=== PATIENT | male | born 1975 | race African-American/Black ===

== ENCOUNTER 2022-10-22 11:23 | Emergency (ER) | payer BC, SELFPAY ==
--- NOTE | ~2022-10-22 | CT_ITS ---
EXAMINATION: CT abdomen pelvis w con DATE: 10/22/2022 14:58 INDICATION: R flank pain TECHNIQUE: Computed tomography (CT) of the abdomen and pelvis was performed with 100 mL Omnipaque-350 intravenous contrast. Automated exposure control and iterative reconstruction technique were employe d. The dose-length product was 1625.20 mGy-cm. COMPARISON: None. FINDINGS: Lower thorax: Right basilar scar/atelectasis Liver: Normal. Biliary/Gallbladder: Gallbladder is normal. No bile duct dilation. Pancreas: No mass or duct dilation. Spleen: Normal. Adrenals:No mass. Kidneys: No mass, stone, or hydronephrosis. GI tract: No small or large bowel dilation. Normal appendix. Diverticulosis without diverticulitis. Mesentery/Peritoneum: No ascites, mass, or free air. Retroperitoneum: No mass. Pelvis: Pelvic organs are within normal limits. Soft Tissues: Small uncomplicated fat-containing umbilical hernia Bones: No acute osseous finding. IMPRESSION: No acute process detected in the abdomen or pelvis. Reviewed, dictated and finalized at location K.
[2022-10-22 11:27] VITALS: BP 137/62; PULSE 83; RESP 18; TEMP 36.2; O2SAT 97
--- NOTE | 2022-10-22 13:15 | PC.NURSE ---
No answer for room at this time. Did not notify studio artist was leaving.
--- NOTE | 2022-10-22 13:55 | ED.GENADULT ---
HPI - General Adult General Chief complaint: Back Pain/Injury Stated complaint: RIGHT Back/Flank pain, x 1.5 months Time Seen by Provider: 10/22/22 13:48 Source: RN notes reviewed History of Present Illness HPI narrative: Patient presents emergency room from home for back pain. Patient states symptoms been ongoing for the past 6 weeks. The pain is located in the right flank and does not radiate described as aching in nature. States the pain is worsened with movement and stepping on his right leg. He denies any trauma or injury. States he has been taking naproxen regularly for the pain with some improvement. States he last took naproxen 2 hours ago. He denies any fevers or chills denies any chest pain or shortness of breath denies any abdominal pain nausea vomiting diarrhea denies any bowel or bladder incontinence or any other symptoms. Related Data Home Medications Medication Instructions Recorded Confirmed atorvastatin 40 mg tablet 40 mg PO DAILY 06/03/20 bumetanide 1 mg tablet 1 mg PO DAILY 06/03/20 bupropion HCl 300 mg 24 hr tablet, 300 mg PO QAM 06/03/20 extended release carvedilol 25 mg tablet 25 mg PO Q12H 06/03/20 coenzyme Q10 100 mg capsule (Co 100 mg PO DAILY 06/03/20 Q-10) esomeprazole magnesium 20 mg 20 mg PO DAILY 06/03/20 capsule,delayed release Allergies Allergy/AdvReac Type Severity Reaction Status Date / Time No Known Allergies Allergy Verified 06/03/20 13:59 Review of Systems Review of Systems: Gen.: Denies fevers or chills ENT: Denies congestion Respiratory: Denies shortness of breath or cough CV: Denies chest pain or palpitations GI: Denies abdominal pain nausea, emesis or diarrhea denies burning, urgency, frequency or hematuria Musculoskeletal: See HPI Neuro: Denies numbness, tingling, weakness or focal weakness Skin: Denies rash Except as documented, all other systems reviewed and negative [facility] Past Medical History Medical History CHF (congestive heart failure), NYHA class I Depression Diabetes H/O: HTN (hypertension) Hx of migraines Obesity Surgical History Surgical History (Updated 06/04/20 @ 11:35 by aMrnie Andersen) History of ankle surgery Family History Family History (Updated 06/04/20 @ 11:37 by Marnie Andersen) Other Alcoholism Cerebrovascular accident Depression Diabetes mellitus Heart attack Hypertension Social History Social History Smoking status: Unknown if ever smoked Alcohol intake: current Exam Narrative: APPEARANCE: No acute distress, nontoxic, resting in bed EYES: EOMI HEENT: Normocephalic, atraumatic, OMM RESPIRATORY: No respiratory distress Clear to auscultation bilaterally with no rhonchi wheezing or rales. CARDIOVASCULAR: Regular rate and rhythm without murmurs rubs or gallops. ABDOMINAL: Soft, nontender, nondistended, no rebound or guarding MUSCULOSKELETAl: Moves all extremities. No clubbing, cyanosis or edema. Back: No midline thoracic lumbar tenderness palpation tender palpation over right paravertebral muscles L4 1 through 4 and right flank pain increased with rotation to the right with no pain with rotation to the left NEURO: Awake and alert. Following commands, speech normal, no focal deficits muscle strength 5 out of 5 bilateral upper and lower extremities SKIN:: Warm, dry. No rashes lesions or abrasions PSYCHIATRIC: Normal affect/mood, Course Course Emergency Course: Discussed with patient results of workup and diagnosis. Discussed need for follow-up with primary care, proper use of medication, and reasons to return to the emergency department. Patient understands and agrees to current treatment plan discussed with patient his blood sugar did eat earlier has been taking his medication and will take Vital Signs Vital signs: Vital Signs Temperature 97.2 F L 10/22/22 11:27 Pulse Rate 83
[2022-10-22] MEDS: HYDROcodone/acetaminophen (*CRX) 5-325 MG TABLET 1 TAB PO (13:59)
[2022-10-22 14:11] LABS: Basophils Percent Auto 0.3 % (0.2-1.2); Eosinophils Absolute Auto 0.1 K/mm3 (0-0.3); Eosinophils Percent Auto 1.5 % (0-4.4); Hematocrit 45.3 % (42.0-52.0); Hemoglobin 14.6 g/dL (14.0-18.0); Immature Granulocyte Absolute 0.06 K/mm3 (0.00-0.031); Immature Granulocyte Percent A 0.7 % (0-0.5); Lymphocytes Absolute Auto 2.11 K/mm3 (0.9-3.2); Lymphocytes Percent Auto 24.1 % (18.3-44.2); Mean Corpuscular HGB Conc 32.2 g/dl (32-36); Mean Corpuscular Hemoglobin 25.5 pg (26-34); Mean Corpuscular Volume 79.2 fl (80-100); Mean Platelet Volume 10.9 fl (7.4-10.4); Monocytes Absolute Auto 0.9 K/mm3 (0.1-0.6); Monocytes Percent Auto 10.5 % (2.6-8.5); Neutrophils Absolute Auto 5.5 K/mm3 (1.3-6.7); Neutrophils Percent Auto 62.9 % (45.5-73.1); Platelet Count Result 232 k/mm3 (150-375); Red Blood Count 5.72 M/mm3 (4.6-6.20); Red Cell Distribution Width 14.5 % (11.5-14.5); White Blood Count 8.8 K/mm3 (4.5-10.0)
[2022-10-22 14:21] LABS: Alanine Aminotransferase 39 U/L (6-50); Albumin Level 4.5 g/dL (3.5-5.1); Alkaline Phosphatase 110 U/L (38-126); Anion Gap 9 mmol/L (8-16); Aspartate Amino Transferase 31 U/L (17-59); Bilirubin,Total 0.9 mg/dL (0.2-1.3); Blood Urea Nitrogen 19 mg/dL (9-20); Calcium 9.5 mg/dL (8.4-10.2); Carbon Dioxide 28 mmol/L (22-30); Chloride 98 mmol/L (98-107); Estimated CRCL calculation 128 ml/min; Estimated Glomerular Filt Rate > 60; Glucose 330 mg/dL (65-110); Lipase 50 U/L (23-300); Potassium 4.1 mmol/L (3.4-5.0); Sodium 135 mmol/L (137-145)
[2022-10-22 15:24] LABS: Appearance Urine Clear (Clear); Bilirubin Urine Negative (Negative); Blood Urine Negative (Negative); Color Urine Yellow (Yellow); Glucose Urine UA 3+ mg/dL (Negative); Ketones Urine Negative (Negative); Leukocyte Esterase Ur Negative LEU/UL (Negative); Nitrate Urine Negative (Negative); Protein Urine Negative (Negative); Specific Grav Ur 1.018 (1.001-1.035); Urobilinogen Urine 0.2 mg/dL (<2.0); pH Urine 5.5 (5.0-9.0)
[2022-10-22 15:31] LABS: Add Urine Microscopic? NO
[2022-10-22 15:35] VITALS: BP 142/86; PULSE 88; RESP 16; O2SAT 98
== END 2022-10-22 15:40 | disposition home or self-care (01) ==
PROVIDERS: Emergency Provider Emergency Medicine; PCP Internal Medicine
DX: M54.50 Low back pain, unspecified (principal); I11.0 Hypertensive heart disease with heart failure; I50.9 Heart failure, unspecified; E11.9 Type 2 diabetes mellitus without complications; F32.A Depression, unspecified
CPT/HCPCS: 36415; 74177; 80053; 81003; 83690; 85025; 99284; A9270; Q9967

== ENCOUNTER 2024-08-03 21:11 | Emergency (ER) | payer BC, SELFPAY ==
--- NOTE | ~2024-08-03 | CT_ITS ---
History: Trauma PROCEDURE: CT cervical spine without intravenous contrast. COMPARISON: None TECHNIQUE: Multiple contiguous axial images of the cervical spine were performed without the administration of i ntravenous contrast. DLP: 387 mGy-cm FINDINGS: Straightening and slight reversal of the normal curvature of the cervical spine is identified, likely muscular in origin. No acute fractures are present. The bilateral lung apices are without included Scattered cervical lymphadenopathy. Remaining soft tissues are unremarkable. The airway is patent. Impression: Straightening and slight reversal of the normal curvature of the cervical spine, likely muscular in o rigin. No acute fracture. Scattered cervical lymphadenopathy. Reviewed, dictated and finalized at location A. ENGINEERING MANAGER Impression: Straightening and slight reversal of the normal curvature of the cervical spine , likely muscular in origin. No acute fracture. Scattered cervical lymphadenopathy.
--- NOTE | ~2024-08-03 | CT_ITS ---
History: Trauma PROCEDURE: CT head without contrast. COMPARISON: None TECHNIQUE: Axial imaging of the head performed from the skull base to the vertex without IV contrast. Sagittal a nd coronal reformations obtained. DLP: 681 mGy-cm FINDINGS: The ventricles are normal in size, shape and position. There is no mass, mass effect or midline shift. There is no abnormal extra-axial fluid collection or intracranial hemorrhage. Mucoperiosteal thickening within the bilateral ethmoid sinuses. Air-fluid level within the common sphenoid sinus. Remaining paranasal sinuses are unremarkable. The mastoid air cells are well aerated. No acute displaced fractures within the overlying cranium. Impression: No acute intracranial hemorrhage or suspicious mass effect. Inflammatory sinus disease. Reviewed, dictated and finalized at location A. NAGE DESIGN COORDINATOR Impression: No acute intracranial hemorrhage or suspicious mass effect. Inflammatory sinus disease.
[2024-08-03 21:13] VITALS: BP 137/86; PULSE 102; RESP 14; TEMP 36.6; O2SAT 98
--- NOTE | 2024-08-03 22:10 | ED_ITS ---
HPI - General Adult General Chief complaint: Head Injury Stated complaint: head injury Time Seen by Provider: 08/03/24 21:31 History of Present Illness HPI narrative: Patient is a 48-year-old male who presents emergency department this evening complaining of left-sided headaches and neck pain for the past few days. Patient states that he accidentally slipped out of bed on July 29 and hit the left side of his head on the ground. Patient states that initially he was mildly sore to the left side of his head but as the days progressed he started to develop some headaches, left-sided neck pain and nausea. Patient did not see a physician at the time of the fall and did not think much of it but since his symptoms persisted he decided to come to the emergency department today for further evaluation. Denies any vomiting episodes. Denies any blood thinner use other than a baby aspirin daily. Currently denying any vision changes, focal weakness, numbness and/or tingling. Admits that the headache is mild and denies any sudden onset worse headache of his life sensation. No additional symptoms or concerns at this time. Related Data Home Medications ?Medication ?Instructions ?Recorded ?Confirmed ?Last Taken ?Type atorvastatin 40 mg tablet 40 mg PO DAILY 06/03/20 Unknown History bumetanide 1 mg tablet 1 mg PO DAILY 06/03/20 Unknown History bupropion HCl 300 mg 24 hr tablet, 300 mg PO QAM 06/03/20 Unknown History extended release carvedilol 25 mg tablet 25 mg PO Q12H 06/03/20 Unknown History coenzyme Q10 100 mg capsule (Co 100 mg PO DAILY 06/03/20 Unknown History Q-10) esomeprazole magnesium 20 mg 20 mg PO DAILY 06/03/20 Unknown History capsule,delayed release Allergies Allergy/AdvReac Type Severity Reaction Status Date / Time No Known Allergies Allergy Verified 08/03/24 21:11 Review of Systems Review of Systems: All systems are reviewed and are negative unless stated otherwise in the HPI. [facility]LY [facility] Past Medical History Medical History CHF (congestive heart failure), NYHA class I Obesity Hx of migraines H/O: HTN (hypertension) Diabetes Depression Surgical History Surgical History History of ankle surgery Family History Family History Other Alcoholism Cerebrovascular accident Depression Diabetes mellitus Heart attack Hypertension Social History Social History Smoking status: Unknown if ever smoked Alcohol intake: current Exam Narrative: General: Alert, awake, afebrile, in no acute distress. HEENT: PERRL, no rhinorrhea, no post nasal drip, oropharynx clear. Neck: Trachea midline, no JVD, no lymphadenopathy, tenderness palpation over the left paraspinal cervical region, no midline tenderness to palpation over the cervical spine, no step-offs or deformities. Cardiovascular: Regular rate and rhythm, no murmurs, rubs or gallops, no pe ripheral edema. Respiratory: Clear to auscultation bilaterally, no tachypnea, no wheezing, no rhonchi, no rubs, no respiratory distress. Abdomen: Soft, nontender, nondistended, no rebound, no guarding, no peritoneal signs. Musculoskeletal: No joint swelling or deformity, normal muscle tone. Skin: No rashes or petechia, no signs of infection. Psychiatric: Alert and oriented, normal behavior and judgment for situation. Neurological: Alert and oriented to person, place, and time. Follows all commands. No focal deficits, speech is clear and fluent. Course Vital Signs Vital signs: Vital Signs Temperature 97.9 F 08/03/24 21:13 Pulse Rate 102 H 08/03/24 21:13 Respiratory Rate 14 08/03/24 21:13 Blood Pressure 137/86 08/03/24 21:13 Pulse Oximetry 98 08/03/24 21:13 Oxygen Delivery Room Air 08/03/24 21:13 Temperature 97.9 F 08/03/24 21:13 Pulse Rate 102 H 08/03/24 21:13 Respiratory Rate 14 08/03/24 21:13 Blood Pressure 137/86 08/03/24 21:13 Pulse Oximetry 98 08/03/24 21:13 Oxygen Delivery Room Air 08/03/24 21:13 Medical Decision Making MDM Narrative Medical decision making narrative: The patient was evaluated by myself in the emergency department. History is obtained from patient who is an independent historian and physical exam was performed. External medical records were reviewed at this time. Patient was administered 4 mg of ODT Zofran at this time for nausea. Imaging studies obtained included CT brain and cervical spine without IV contrast which was independently interpreted by me revealing no acute process, which is pending final radiology interpretation. Differential diagnosis considerations include intracranial hemorrhage, fractures, dislocations, musculoskeletal strain. Comorbidities impacting this visit include none. I have evaluated and discussed social determinants of health with the patient that could potentially impact subsequent diagnosis and treatment plans. On repeat assessment of the patient, reevaluation revealed that the patient is doing well and is in no acute distress. Patient symptoms have remained stable since he arrived to our emergency department. Repeat vital signs were all reviewed and noted to be stable. Differential diagnosis and treatment plan were discussed with the patient at bedside. Patient agrees with discussion and after shared medical decision making agrees with discharge. All questions were answered to the patient's satisfaction. Patient will follow up with PCP in 3-5 days. Scripts for Robaxin and Zofran were sent to patient's pharmacy to use as needed for nausea/muscle pain. Patient was provided with strict return precautions and instructed to return to the emergency department if any new or worsening symptoms develop. The patient was discharged in stable condition. Vital Signs Vital Signs: Vital Signs Temperature 97.9 F 08/03/24 21:13 Pulse Rate 102 H 08/03/24 21:13 Respiratory Rate 14 08/03/24 21:13 Blood Pressure 137/86 08/03/24 21:13 Pulse Oximetry 98 08/03/24 21:13 Oxygen Delivery Room Air 08/03/24 21:13 Temperature 97.9 F 08/03/24 21:13 Pulse Rate 102 H 08/03/24 21:13 Respiratory Rate 14 08/03/24 21:13 Blood Pressure 137/86 08/03/24 21:13 Pulse Oximetry 98 08/03/24 21:13 Oxygen Delivery Room Air 08/03/24 21:13 Discharge Plan Discharge Clinical Impression: Closed head injury, Cervical strain Patient Disposition: Home, Self-Care Condition: Improved Instructions: Antibiotic Form, Cervical Strain (DC), Head Injury (ED) Additional Instructions: Please take the prescribed a muscle relaxer/Zofran as needed for your symptoms. Follow-up with your family doctor within the next 3-5 days. Return to the emergency department if any new or worsening symptoms develop. Patient Language: Gibraltarian Prescriptions: New methocarbamol 750 mg tablet 750 mg PO HS PRN (Reason: muscle pain) Qty: 10 0RF ondansetron 4 mg tablet,disintegrating 4 mg PO Q8H PRN (Reason: nausea and vomiting) Qty: 10 0RF No Action atorvastatin 40 mg tablet 40 mg PO DAILY bumetanide 1 mg tablet 1 mg PO DAILY bupropion HCl 300 mg tablet extended release 24 hr 300 mg PO QAM carvedilol 25 mg tablet 25 mg PO Q12H Rx Instructions: must administer with a meal/food coenzyme Q10 [Co Q-10] 100 mg capsule 100 mg PO DAILY esomeprazole magnesium 20 mg capsule,delayed release(DR/EC) 20 mg PO DAILY cyclobenzaprine 10 mg tablet 10 mg PO TID PRN (Reason: muscle spasm) Qty: 8 0RF ibuprofen 600 mg tablet 600 mg PO TID PRN (Reason: pain) Qty: 10 0RF Follow-up/Referrals: Sony Sherman MD [Physician] - 3 Days UNKNOWN,DOCTOR [Primary Care Provider] - Time of Disposition: 22:09
[2024-08-03] MEDS: ONDANSETRON HCL ODT 4 MG TABLET PO (22:14)
== END 2024-08-03 22:14 | disposition home or self-care (01) ==
PROVIDERS: Emergency Provider Emergency Medicine
DX: S09.90XA Unspecified injury of head, initial encounter (principal); S16.1XXA Strain of muscle, fascia and tendon at neck level, initial encounter; I50.9 Heart failure, unspecified; I11.0 Hypertensive heart disease with heart failure; E11.9 Type 2 diabetes mellitus without complications; E66.9 Obesity, unspecified; Z68.39 Body mass index [BMI] 39.0-39.9, adult; F32.A Depression, unspecified; Z79.899 Other long term (current) drug therapy; W06.XXXA Fall from bed, initial encounter
CPT/HCPCS: 70450; 72125; 99284; A9270

== ENCOUNTER 2025-02-19 12:48 | Emergency (ER) | payer BC, SELFPAY ==
--- NOTE | ~2025-02-19 | XR_ITS ---
EXAMINATION: XR knee LT 3V DATE: 02/19/2025 16:45 INDICATION: Left knee pain TECHNIQUE: Anteroposterior, oblique and crosstable lateral views of the left knee were obtained COMPARISON: None. FINDINGS: Alignment is normal. No fracture. Joint spaces appear normal on nonweightbearing imaging. Tiny amaya nal osteophytes along the lateral tibial plateau consistent with at least mild osteoarthritis. No silvio nt effusion/layering lipohemarthrosis. Soft tissues are unremarkable. IMPRESSION: 1. At least mild osteoarthritis lateral compartment of the left knee. No joint effusion or acute osse ous abnormality. Reviewed, dictated and finalized at location A. IMPRESSION: 1. At least mild osteoarthritis lateral compartment of the left knee. No joint effusion or acute osseous abnormality.
--- NOTE | ~2025-02-19 | XR_ITS ---
EXAMINATION: XR chest 1V portable 02/19/2025 14:56 INDICATION: Fever. CHF. PROCEDURE: AP portable chest COMPARISON: 08/12/2017 FINDINGS: The lungs are clear. The cardiomediastinal silhouette is within normal limits. There are no pleural effusions. There is no pneumothorax suspected. IMPRESSION: 1: NO ACUTE CARDIOPULMONARY DISEASE. Reviewed, dictated and finalized at location B.
[2025-02-19 12:48] VITALS: BP 114/60; PULSE 90; RESP 16; TEMP 37.7; O2SAT 98
--- OUTSIDE RECORDS SUMMARY | 2025-02-19 12:50 | XMS_ITS | Encounter Summary ---
Author Organization [facility] Address [address] [place] [address] Phone Care Team Providers Care Manager Insurance Name Role Phone Chelsie Monsivais MD Primary Care Provider Ralf Eduardo MD Primary Care Provider Tomas Reddy APRN, RESIDENTIAL SERVICE TECHNICIAN Unavailable Regi Alcantar APRN, RESIDENTIAL SERVICE TECHNICIAN Primary Care Provid er Reason for Visit * Reason Comments Medication Refill Encounter Details Date Type Department Care Team (Late st Contact Info) Description 02/17/2021 Refill [facility] [address] [place] [address] Danelle Bishop MD [address] [facility] [address] [place] [address] Medication Refill Social History Tobacco Use Types Packs/Day Years Used Date Smoking Tobacco: Former Smokeless Tobacco: Never Alcohol Use Standard Drinks/Week Comments Not Currently 0 (1 standard drink = 0.6 oz pur e alcohol) Sexually Active Control Partners Comments Yes Female Sex and Gender Information Value Date Recorded Sex Assigned at Not on file Legal Sex Male 2:10 PM CDT Gender Identity Not on file Sexual Orientation Not on file documented as of this encounter Plan of Treatment Upcoming Encounters Date Type Department Care Team (Late st Contact Info) Description 04/21/2025 10:15 AM CDT Office Visit [facility] [address] [place] [address] Tomas Reddy APRN, RESIDENTIAL SERVICE TECHNICIAN [address] [place] [address] documented as of this encounter Visit Diagnoses Diagnosis Hypogonadism in male documented in this encounter Care Teams Manager Insurance Relationship Specialty Start Date End Date Adolfog Chelsie Marie MD [address] [address] PCP - General Family Medicine 01/13/20 08/08/21 Ralf Eduardo MD [address] [place] [address] PCP - General Adult Medicine 08/09/21 03/18/24 Regi Alcantar APRN, RESIDENTIAL SERVICE TECHNICIAN [address] [place] [address] PCP - General Advanced Practice Nurse 03/19/24 Tomas Reddy APRN, RESIDENTIAL SERVICE TECHNICIAN [address] [place] [address] Nurse Practitioner Advanced Practice Nurse 08/08/22 documented as of this encounter
--- OUTSIDE RECORDS SUMMARY | 2025-02-19 12:50 | XMS_ITS | Encounter Summary ---
Author Organization [facility] Address [facility] [place] [address] Care Team Providers Care Ship Liner Name Role Phone Regi Alcantar EXECUTIVE LEGAL SECRETARY Primary Care Provider [phone] Encounter Details Date Type Department Care Team (Latest Contact Info) Description 02/19/2025 Travel Social History Tobacco Use Types Packs/Day Years Used Date Smoking Tobacco: Former Cigarettes 1 3 Cigars Passive Smoke Exposure: Past Smokeless Tobacco: Never Alcohol Use Standard Drinks/Week Comments Yes 2 (1 standard drink = 0.6 oz pur e alcohol) socially PHQ-2 Answer Date Recorded Patient Health Questionnaire-2 Score 2 10/16/2024 Sex and Gender Information Value Date Recorded Sex Assigned at Male 10/16/2024 7:59 AM CDT Legal Sex Male 6:09 PM CDT Gender Identity Male 10/16/2024 7:59 AM CDT Sexual Orientation Straight 10/16/2024 7: 59 AM CDT Travel History Travel Start Travel End [place] 02/12/2025 02/13/2025 [place] 02/10/2025 02/10/2025 [place] 02/09/2025 025 documented as of this encounter Plan of Treatment Upcoming Encounters Date Type Department Care Team (Late st Contact Info) Description 05/27/2025 8:00 AM CORE DIPPER Office Visit [facility] - [place] [address] [place] [address] Regi Alcantar, EXECUTIVE LEGAL SECRETARY [address] [place] [address] documented as of this encounter Visit Diagnoses Not on filedocumented in this encounter Additional Health Concerns Assessment Noted Time PHQ-9 Depression Total Score: 9 10/17/19 25 9:36 AM CDT documented as of this encounter Care Teams Ship Liner Relationship Specialty Start Date End Date Regi Alcantar, EXECUTIVE LEGAL SECRETARY [address] [place] [address] PCP - General NURSE PRACTITIONER 02/08/24 documented as of this encounter
--- OUTSIDE RECORDS SUMMARY | 2025-02-19 12:50 | XMS_ITS | Encounter Summary ---
Author Organization [facility] Address [address] [place] [address] Phone Care Team Providers Care Business Services Coordinator Name Role Phone Chelsie Monsivais MD Primary Care Provider Ralf Eduardo MD Primary Care Provider [phone] Tomas Reddy APRN, LONG TERM CARE PHLEBOTOMIST Unavailable [phone] Regi Alcantar APRN, LONG TERM CARE PHLEBOTOMIST Primary Care Provid er Reason for Visit * Reason Comments Medication Refill Encounter Details Date Type Department Care Team (Late st Contact Info) Description 06/16/2021 Refill [facility] [address] [place] [address] Chema Carmona MD [address] [place] [id number] Medication Refill Social History Tobacco Use Types [...] Description 04/21/2025 10:15 AM CDT Office Visit [facility] [address] [place] [address] Tomas Reddy APRN, LONG TERM CARE PHLEBOTOMIST [address] [place] [address] documented as of this encounter Visit Diagnoses Diagnosis Hypogonadism in male documented in this encounter Care Teams Business Services Coordinator Relationship Specialty Start Date End Date Adolfog Chelsie Marie MD [address] [facility] [place] [address] PCP - General Family Medicine 01/13/20 08/08/21 Ralf Eduardo MD [address] [place] [address] PCP - General Adult Medicine 08/09/21 03/18/24 Regi Alcantar APRN, LONG TERM CARE PHLEBOTOMIST [address] [place] [address] PCP - General Advanced Practice Nurse 03/19/24 Tomas Reddy APRN, LONG TERM CARE PHLEBOTOMIST [address] [place] [address] Nurse Practitioner Advanced Practice Nurse 08/08/22 documented as of this encounter
--- OUTSIDE RECORDS SUMMARY | 2025-02-19 12:50 | XMS_ITS | Encounter Summary ---
Author Organization [facility] Address [facility] [place] [address] Care Team Providers Care Black Ash Worker Name Role Phone Regi Alcantar NP Primary Care Provider [phone] Encounter Details Date Type Department Care Team (Latest Contact Info) Description 02/19/2025 MyChart Message Enc [facility] - [place] [address] [place] [address] Regi Alcantar, FIFI [address] [place], [place] [id number] Severe headache and joint stiffness Social History Tobacco Use Types Packs/Day Years [...] CDT Travel History Travel Start Travel End [facility] 02/12/2025 02/13/2025 [place] 02/10/2025 02/10/2025 [place] 02/09/2025 025 documented as of this encounter Plan of Treatment Upcoming Encounters Date Type Department Care Team (Late st Contact Info) Description 05/27/2025 8:00 AM FLOOR WINDER Office Visit [facility] - [place] [address] [place] [address] Regi Alcantar NP [address] [place] [address] documented as of this encounter Visit Diagnoses Not on filedocumented in this encounter Additional Health Concerns Assessment Noted Time PHQ-9 Depression Total Score: 9 10/17/19 25 9:36 AM CDT documented as of this encounter Care Teams Black Ash Worker Relationship Specialty Start Date End Date Regi Alcantar NP [address] [place] [address] PCP - General NURSE PRACTITIONER 02/08/24 documented as of this encounter
--- OUTSIDE RECORDS SUMMARY | 2025-02-19 12:50 | XMS_ITS | Encounter Summary ---
Author Organization [facility] Address [facility] [place] [address] Care Team Providers Care Senior Game Developer Name Role Phone Regi Alcantar NP Primary Care Provider [phone] Encounter Details Date Type Department Care Team (Latest Contact Info) Description 01/22/2025 Results Follow-Up [facility] - [place] [address] [place] [address] Regi Alcantar NP [address] [place], [place] [id number] A1C (BACK OFFICE), COMPREHENSIVE METABOLIC PANEL, LIPID PANEL Social History Tobacco Use Types Packs/Day Years [...] CDT Travel History Travel Start Travel End [facility] 02/12/2025 02/13/2025 [place] 02/10/2025 02/10/2025 [place] 02/09/2025 025 documented as of this encounter Plan of Treatment Upcoming Encounters Date Type Department Care Team (Late st Contact Info) Description 05/27/2025 8:00 AM WEBFED OFFSET PRESS OPERATOR Office Visit [facility] - [place] [address] [place] [address] Regi Alcantar, SANITATION SUPERINTENDENT [address] [place] [address] documented as of this encounter Visit Diagnoses Not on filedocumented in this encounter Additional Health Concerns Assessment Noted Time PHQ-9 Depression Total Score: 9 10/17/19 25 9:36 AM CDT documented as of this encounter Care Teams Senior Game Developer Relationship Specialty Start Date End Date Regi Alcantar SANITATION SUPERINTENDENT [address] [place] [address] PCP - General NURSE PRACTITIONER 02/08/24 documented as of this encounter
--- OUTSIDE RECORDS SUMMARY | 2025-02-19 12:50 | XMS_ITS | Clinical Summary ---
Author Organization [facility] Address [address] [place] [address] Care Team Providers Care Suction Dredge Dumping Supervisor Name Role Phone Regi Alcantar NP Primary Care Provider [phone] Allergies No known active allergies Medications testosterone cypionate (DEPO TESTOSTERONE) 200 MG/ML injection INJECT 0.75ML INTRAMUSCULARLY EVERY 7 DAYS 024 Active B-D 3CC LUER-SARAN SYR 79HS2-6/2 21G X 1-2 3 ML Misc USE 1 EACH EVERY 14 DAYS. 024 Active furosemide (LASIX) 40 MG tablet Take 1 tablet (40 mg total) by mouth daily. Active aspirin EC (ECOTRIN) 81 MG tablet Take 1 tablet (81 mg total) by mouth daily. Active Continuous Glucose Sensor (FREESTYLE KEHINDE 3 SENSOR) MiscIndications:D M (diabetes mellitus), type 2, uncontrolled, with hyperosmolarity (CMS/HCC HHS/HCC),Cardiomy opathy, unspecified type ([facility] HHS/HCC),Chronic congestive heart failure, unspecified heart failure type ([facility] HHS/HCC) 1 Device by Does not apply route every 14 (fourteen) days. 2 each 5 024 Active zolpidem (AMBIEN) 5 MG tabletIndications :Primary insomnia Take 1 tablet (5 mg total) by mouth nightly as needed for Sleep. 30 tablet 1 024 Active lisinopril (PRINIVIL) 20 MG tabletIndications :Cardiomyopathy, unspecified type (CMS/HCC HHS/HCC),Chronic congestive heart failure, unspecified heart failure type (CMS/HCC HHS/HCC) Take 1 tablet (20 mg total) by mouth daily. 90 tablet 3 024 Active carvedilol (COREG) 25 MG tablet Take 1 tablet (25 mg total) by mouth 2 (two) times daily. 180 tablet 3 024 Active empagliflozin (JARDIANCE) 25 MG tabletIndications :DM (diabetes mellitus), type 2, uncontrolled, with hyperosmolarity (CMS/HCC HHS/HCC),Chronic congestive heart failure, unspecified heart failure type (CMS/HCC HHS/HCC) Take 1 tablet (25 mg total) by mouth daily. 90 tablet 1 025 Active metFORMIN ER, MOD, (GLUMETZA) 1000 MG 24 hr tabletIndications :DM (diabetes mellitus), type 2, uncontrolled, with hyperosmolarity (CMS/HCC HHS/HCC) Take 1 tablet (1,000 mg total) by mouth 2 (two) times daily. 180 tablet 1 025 Active semaglutide (OZEMPIC) 2 mg/dose injection (PEN)Indications: Diabetes Mellitus Inject 2 mg into the skin once a week. Indications: Diabetes 6 mL 1 025 Active triamcinolone (KENALOG) 0.1 % creamIndications: Tinea corporis Apply topically 2 (two) times daily. 45 g 025 Active Additional Information Patient not taking.Reported on 02/19/2025 clotrimazole (LOTRIMIN) 1 % creamIndications: Tinea corporis Apply topically 2 (two) times daily. 28 g 025 Active Additional Information Patient not taking.Reported on 02/19/2025 spironolactone (ALDACTONE) 50 MG tabletIndications :Chronic congestive heart failure, unspecified heart failure type (CMS/HCC HHS/HCC),Non-isch emic cardiomyopathy (CMS/HCC HHS/HCC) Take 1 tablet (50 mg total) by mouth daily. 90 tablet 1 025 Active FLUoxetine HCl 60 MG TabIndications:Ma alek depressive disorder, recurrent episode, moderate (CMS/HCC) Take 60 mg by mouth daily. 30 tablet 2 025 Active atorvastatin (LIPITOR) 80 MG tabletIndications :Mixed hyperlipidemia Take 1 tablet (80 mg total) by mouth nightly at bedtime. 90 tablet 1 025 Active digoxin (LANOXIN) 0.25 MG tabletIndications :History of atrial fibrillation Take 1 tablet (0.25 mg total) by mouth daily. 90 tablet 1 025 Active brexpiprazole (REXULTI) 1 MG tabletIndications :Major depressive disorder, recurrent episode, moderate (CMS/HCC),DEMETRICE (generalized anxiety disorder) Take 1 tablet (1 mg total) by mouth daily. 30 tablet 2 025 Active brexpiprazole (REXULTI) 0.5 MG tabletIndications :Major depressive disorder, recurrent episode, moderate (CMS/HCC) Take 1 tablet (0.5 mg total) by mouth daily. 30 tablet 2 025 01/22 Discontinued atorvastatin (LIPITOR) 80 MG tabletIndications :Mixed hyperlipidemia Take 1 tablet (80 mg total) by mouth nightly at bedtime. 90 tablet 025 01/22 Discontinued( Reorder) digoxin (LANOXIN) 0.25 MG tabletIndications :History of atrial fibrillation Take 1 tablet (0.25 mg total) by mouth daily. 30 tablet 025 01/22 Discontinued( Reorder) brexpiprazole (REXULTI) 1 MG tabletIndications :Major depressive disorder, recurrent episode, moderate (CMS/HCC),DEMETRICE (generalized anxiety disorder) Take 1 tablet (1 mg total) by mouth daily. 30 tablet 2 025 01/22 Discontinued Active Problems Problem Noted Date Diagnosed Date Iron deficiency 10/16/2024 History of DVT (deep vein thrombosis) 02/21/2024 History of atrial fibrillation 02/21/2024 Coronary artery disease due to lipid rich plaque 02/21/2024 DM (diabetes mellitus), type 2, uncontrolled, with hyperosmolarity ([facility]) 02/20/2024 Chronic congestive heart kaylen lure, unspecified heart failure type ([facility]) 02/20/2024 Non-ischemic cardiomyopathy ([facility]) Major depressive disorder, recurrent episode, mo derate 02/20/2024 Mixed hyperlipidemia 02/20/2024 Insomnia, unspecified type 02/20/2024 Encounters Date Type Department Care Team Description 02/19/2025 11:40 AM CDT Office Visit [place] [address] [facility] [address] [place] [address] Regi Alcantar, FIFI Pain (Patient presents today with back and neck pain that is going down both arms and legs. Started x2 days ago. ) 02/19/2025 Travel 02/19/2025 365 [employer] [facility] [address] [place] [address] Regi Alcantar, FIFI Severe headache and joint stiffness 01/22/2025 8:00 AM CDT Office Visit [place] [address] [place] [address] Regi Alcantar, CATALYTIC CASE OPERATOR Diabetes 01/22/2025 Results Follow-Up [place] [address] [place] [address] Regi Alcantar, FIFI A1C (BACK OFFICE), COMPREHENSIVE METABOLIC PANEL, LIPID PANEL 01/22/2025 365 [employer] [facility] [place] [address] [place] [address] [place] [address] Regi Alcantar, FIFI cardiology 01/22/2025 Telephone [place] [address] [place] [address] Regi Alcantar, CATALYTIC CASE OPERATOR Record Request 01/22/2025 Travel 11/19/2024 Results Follow-Up [place] [address] [place] [address] [place] [address] Regi Alcantar, FIFI A1C (BACK OFFICE), TSH W/REFLEX, CBC W/DIFF AUTOMATED, Additional followed-up results: 5 from Last 3 Months Immunizations Immunization Administration Dates Next Due Pneumococcal (Pneumovax 23) 07/23/2016 Pneumococcal (Prevnar 20) 10/16/2024 Tdap (Generic) 08/27/2017 Social History Tobacco Use Types Packs/Day Years Used Date Smoking Tobacco: Former Cigarettes 1 3 Cigars Passive Smoke Exposure: Past Smokeless Tobacco: Never Tobacco Cessation:Counseling Given: No Alcohol Use Standard Drinks/Week Comments Yes 2 [...] 02/10/2025 [place] 02/09/2025 025 Last Filed Vital Signs Vital Sign Reading Time Taken Comments Blood Pressure 98/62 02/19/2025 11:38 AM CDT Pulse 102 02/19/2025 11:38 AM CDT Temperature 37.1 C (98.8 F) 02/19/2025 11:38 AM CDT Respiratory Rate 16 02/19/2025 11:3 8 AM CDT Oxygen Saturation 97% 02/19/2025 11: 38 AM CDT Inhaled Oxygen Concentration - - Weight 115.6 kg (254 lb 12.8 oz) 2024 11:38 AM CDT Height 182.9 cm (6') 02/19/2025 11:38 AM CDT Body Mass Index 34.56 02/19/2025 11:38 AM CDT Plan of Treatment Upcoming Encounters Date Type Department Care Team (Late st Contact Info) Description 05/27/2025 8:00 AM PRINCIPAL EXAMINER Office Visit [facility] [place] [address] [place] [address] Regi Alcanatr, FIFI [address] [place] [address] Health Maintenance Due Date Last Done Comments Diabetes: Retinopathy Eye Exam 11/23/1993 Hepatitis B Vaccines (1 of 3 - 19+ 3-dose series) 11/23/1994 COVID-19 Vaccine (2 - season) 2024 12/23/2020 Hemoglobin A1C 07/25/2025 01/22/2025, 09/21, 06/18/2024, Additional history exists Annual Physical 10/16/2025 10/16/2024 Kidney Health Evaluation 10/16/2025 10/16/2024 Lipid Panel 01/22/2026 01/22/2025, 09/21, 06/18/2024, Additional history exists DTaP, Tdap and Td Vaccines (2 - Td or Tdap) 08/27/2027 08/27/2017 Colorectal Cancer Screening FIT-DNA (3 Years) 11/15/2027 11/14/2024, 11/14/2024 Hepatitis C Completed 02/20/2024 PHQ-2 (Physician [place]) Completed 10/16/2024 Pneumococcal Vaccine: Pediatrics (0 to 5 Years) and At-Risk Patients (6 to 49 Years) Completed 10/16/2024, 07/23/2016 Meningococcal B Vaccine Aged Out No l onger eligible based on patient's age to complete this topic Meningococcal Vaccine Aged Out No lucie claritza eligible based on patient's age to complete this topic RSV Immunizations Under 20 Months Aged Out No longer eligible based on patient's age to complete this topic Procedures Procedure Name Priority Date/Time Associated Diagnosis Comments LIPID PANEL Routine 01/22/2025 8:57 AM CDT Mixed hyperlipidemia Coronary artery disease due to lipid rich plaque COMPREHENSIVE METABOLIC PANEL Routine 01/22/2025 8:57 AM CDT Coronary artery disease due to lipid rich plaque HEMOGLOBIN, GLYCOSYLATED Routine 01/22/2025 DM (diabetes mellitus), type 2, uncontrolled, with hyperosmolarity (CMS/HCC HHS/HCC) COLOGUARD (EXACT SCIENCE) Routine 11/14/2024 7:10 AM CDT Screening for colon cancer HEPATITIS C ANTIBODY Routine 02/20/2024 11:46 AM CDT Need for hepatitis C screening test from Last 3 Months or Most Recently Relevant to Health Maintenance Results * (ABNORMAL) COMPREHENSIVE METABOLIC PANEL (01/22/2025 8:57 AM CDT) [facility] SODIUM S/P/B 139 136 - 145 MMOL/L 01/22/2025 3:37 PM CDT [facility] POTASSIUM S/P/B 4.2 3.5 - 5.1 MMOL/L 01/22/2025 3:37 PM CDT [facility] CHLORIDE S/P/B 100 98 - 107 MMOL/L 01/22/2025 3:37 PM CDT -[facility] CO2 30.2 21 - 32 MMOL/L 01/22/2025 3:37 PM CDT [facility] GLUCOSE 150(H) 70 - 99 MG/DL 01/22/2025 3:37 PM CDT [facility] BUN 21(H) 7 - 18 MG/DL 01/22/2025 3:37 PM CDT -[facility] CREATININE S/P/B 1.05 0.70 - 1.30 MG/DL 01/22/2025 3:37 PM CDT -[facility] CALCIUM S/P/B 10.2 8.4 - 10.5 MG/DL 01/22/2025 3:37 PM CDT [facility] BILIRUBIN TOTAL S/P/B 1.0 0.2 - 1.0 MG/DL 01/22/2025 3:37 PM CDT [facility] ALKALINE PHOSPHATASE S/P/B 78 45 - 115 U/L 01/22/2025 3:37 PM CDT [facility] AST 15 15 - 37 U/L 01/22/2025 3:37 PM CDT [facility] ALT 29 16 - 63 U/L 01/22/2025 3:37 PM CDT [facility] REJI, [place] TOTAL PROTEIN S/P/B 7.7 6.4 - 8.2 G/DL 01/22/2025 3:37 PM CDT [facility] ALBUM[facility] S/P/B 4.1 3.4 - 5.0 G/DL 01/22/2025 3:37 PM CDT [facility] ANION GAP 8.8 5 - 15 MMOL/L 01/22/2025 3:37 PM CDT [facility] Comment:REFERENCE RANGE NOT ESTABLISHED OSMOLALITY (CALC) 294 MOSM/KG 025 3:37 PM CDT [facility] Comment:REFERENCE RANGE NOT ESTABLISHED GFR ESTIMATE 87(L) >90 ML/MIN/1. 73 M2 01/22/2025 3:37 PM CDT [facility] GFR NOTES GFR REFERENCE S: 01/22/2025 3:37 PM T [facility] Comment: THE ESTIMATED GFR IS CALCULATED USING THE 2020 CKD-EPI EQUATION. THE FOLLOWING CATEGORIES FOR GRADING RENAL FUNCTION ARE RECOMMENDED BY THE INTERNATIONAL SOCIETY OF NEPHROLOGY (KDIGO 2012 CLINICAL PRACTICE GUIDELINE). G1,NORMAL OR HIGH: >89 ml/min/1.73 m2 G2,MILDLY DECREASED: 60-89 ml/min/1.73 m2 G3A,MILDLY TO MODERATELY DECREASED: 45-59 ml/min/1.73 m2 G3B,MODERATELY TO SEVERELY DECREASED: 30-44 ml/min/1.73 m2 G4,SEVERELY DECREASED: 15-29 ml/min/1.73 m2 G5,KIDNEY FAILURE: <15 ml/min/1.73 m2 01/22/2025 8:57 AM CDT us Regi Alcantar NP LABORATORY Final Resul t [facility] [address] [facility] [place] [address], [place] [phone] * (ABNORMAL) LIPID PANEL (01/22/2025 8:57 AM CDT) CHOLESTEROL 155 <200 MG/DL 01/22/2025 3:37 PM CDT [facility] TRIGLYCERIDES 171(H) <150 MG/DL 01/22/2025 3:37 PM CDT [facility] HDL 43 >40 MG/DL 01/22/2025 3:37 PM CDT [facility] LDL-C 78 <100 MG/DL 01/22/2025 3:37 PM CDT [facility] VLDL CALCULATION 34(H) 5 - 28 MG/DL 01/22/2025 3:37 PM CDT [facility] CHOL/HDL RATIO 3.6 0.0 - 4.0 01/22/2025 3:37 PM CDT [facility] LDL/HDL 1.8 0.41 - 2.13 01/22/2025 3:37 PM CDT [facility] NON HDL CHOLESTEROL 112 <140 MG/DL 01/22/2025 3:37 PM CDT [facility] 01/22/2025 8:57 AM CDT Regi Alcantar NP LABORATORY Final Resul t [facility] [address] [place] [address], [place] [phone] * A1C (BACK OFFICE) (01/22/2025) HGB A1C 7.6 % [address], [place] 01/22/2025 Regi Alcantar NP LABORATORY Final Resul t [facility], [facility] [address] [place] [address], [place] [phone] * COLOGUARD (Valentin Uzhun) (11/14/2024 7:10 AM CDT) COLOGUARD RESULT Negative Negative [email or web address] codebender (CLIA #:[id number]) Comment: The Cologuard (TM) test was performed on this specimen. NEGATIVE TEST RESULT. A negative Cologuard result indicates a low likelihood that a colorectal cancer (CRC) or advanced adenoma (adenomatous polyps with more advanced pre-malignant features) is present. The chance that a person with a negative Cologuard test has a colorectal cancer is less than 1 in 1500 (negative predictive value >99.9%) or has an advanced adenoma is less than 5.3% (negative predictive value 94.7%). These data are based on a prospective cross-sectional study of 10,000 individuals at average risk for colorectal cancer who were screened with both Cologuard and colonoscopy. (Dorcas Chua al, N Engl J Med 2014;370(14):1286- 1297) The normal value (reference range) for this assay is negative. COLOGUARD RE-SCREENING RECOMMENDATION: Periodic colorectal cancer screening is an important part of preventive healthcare for asymptomatic individuals at average risk for colorectal cancer. Following a negative Cologuard result, the [place] [employer] and U.S. Multi-Society Task Force screening guidelines recommend a Cologuard re-screening interval of 3 years. References: [place] [employer] Guideline for Colorectal Cancer Screening: https://www.cancer.org/cancer/jbzyj-lgpsur-oemoaj/omzjprxnn-wxncvdrye-ulsgmjp/ac s-rec ommendations.html.; Justin DK, Ariane ARAIZA, Rosalinda AdameK, Colorectal Cancer Screening: Recommendations for Physicians and Patients from the U.S. Multi-Society Task Force on Colorectal Cancer Screening , Am J Gastroenterology 2017; 112:4251-7295. TEST DESCRIPTION: Composite algorithmic analysis of stool DNA-biomarkers with hemoglobin immunoassay. Quantitative values of individual biomarkers are not reportable and are not associated with individual biomarker result reference ranges. Cologuard is intended for colorectal cancer screening of adults of either sex, 45 years or older, who are at average-risk for colorectal cancer (CRC). Cologuard has been approved for use by the U.S. FDA. The performance of Cologuard was established in a cross sectional study of average-risk adults aged 50-84. Cologuard performance in patients ages 45 to 49 years was estimated by sub-group analysis of near-age groups. Colonoscopies performed for a positive result may find as the most clinically significant lesion: colorectal cancer [4.0%], advanced adenoma (including sessile serrated polyps greater than or equal to 1cm diameter) [20%] or non- advanced adenoma [31%]; or no colorectal neoplasia [45%]. These estimates are derived from a prospective cross-sectional screening study of 10,000 individuals at average risk for colorectal cancer who were screened with both Cologuard and colonoscopy. (Dorcas Albrecht et al, N Engl J Med 2014;370(14):8819-1730.) Cologuard may produce a false negative or false positive result (no colorectal cancer or precancerous polyp present at colonoscopy follow up). A negative Cologuard test result does not guarantee the absence of CRC or advanced adenoma (pre-cancer). The current Cologuard screening interval is every 3 years. ([place] [employer] and U.S. Multi-Society Task Force). Cologuard performance data in a 10,000 patient pivotal study using colonoscopy as the reference method can be accessed at the following location: www.[employer]/results. Additional description of the Cologuard test process, warnings and precautions can be found at www.cologuard.com. STOOL STOOL SPECIMEN / Unknown 11/14/2024 7:10 AM CDT 11/15/2024 6:28 AM CDT Regi Alcantar NP BODY FLUIDS AND STOOLS [facility] Final Result [employer] ([employer] [facility]) [address] [place] [address], [employer] (CLIA #:[id number]) [address] [place] [address] * HEPATITIS C ANTIBODY (02/20/2024 11:46 AM CDT) HEPATITIS C AB NON-REACTI VE NON-REACT JEET 02/20/2024 10:07 PM CDT [facility] Comment: ANTIBODIES TO HCV NOT DETECTED. DOES NOT EXCLUDE THE POSSIBILITY OF EXPOSURE TO HCV. 02/20/2024 11:4 6 AM CDT Regi Alcantar NP LABORATORY Final Resul t [facility] [address] [place] [address], [id number] from Last 3 Months or Most Recently Relevant to Health Maintenance Insurance [facility] Care Teams Suction Dredge Dumping Supervisor Relationship Specialty Start Date End Date Regi Alcantar NP [address] [place] [address] PCP - General NURSE PRACTITIONER 02/08/24
--- OUTSIDE RECORDS SUMMARY | 2025-02-19 12:50 | XMS_ITS | Encounter Summary ---
Author Organization [facility] Address [facility] [place] [address] Care Team Providers Care Skip Tender Name Role Phone Deborah Alcantar NP Primary Care Provider [phone] Reason for Visit * Reason Comments Pain Patient presents tod ay with back and neck pain that is going down both arms and legs. Started x2 days ago. Encounter Details Date Type Department Care Team (Late st Contact Info) Description 02/19/2025 11:40 AM CDT Office Visit [facility] [place] [address] [place], [place] [id number] Deborah Alcantar NP [address] [place], [place] [id number] Pain (Patient presents today with back and neck pain that is going down both arms and legs. Started x2 days ago. ) Social History Tobacco Use Types Packs/Day Years [...] CDT Travel History Travel Start Travel End [facility] 02/12/2025 02/13/2025 [place] 02/10/2025 02/10/2025 [place] 02/09/2025 025 documented as of this encounter Last Filed Vital Signs Vital Sign Reading [...] Mass Index 34.56 02/19/2025 11:38 AM CDT documented in this encounter Progress Notes * Deborah Alcantar, ADVERTISING ASSISTANT - 02/19/2025 11:40 AM CDTSummary: body aches, fatigue Images from the original note were not included. Internal Medicine Outpatient Progress Note CC: Pain (Patient presents today with back and neck pain that is going down both arms and legs. Started x2 days ago. ) HPI: Cade Gonzalez is a 49-year-old male who presents to discuss symptoms states he has neck pain, body aches all over but most bothersome in his left wrist, left knee is hot, red and swollen also has a severe headache. Denies fever, admits to feeling like he is ill states nothing will take the headacheaway. Symptoms started 2 days ago and are not getting any better. Denies rash or bug bite. Patient has history of below: Patient Active Problem List Diagnosis DM (diabetes mellitus), type 2, uncontrolled, with hyperosmolarity ([facility] HHS/HCC) Chronic congestive heart failure, unspecified heart failure type ([facility] HHS/HCC) Non-ischemic cardiomyopathy ([facility] HHS/HCC) Major depressive disorder, recurrent episode, moderate ([facility]/HCC) Mixed hyperlipidemia Insomnia, unspecified type History of DVT (deep vein thrombosis) History of atrial fibrillation Coronary artery disease due to lipid rich plaque Iron deficiency Review of Systems Constitutional: Positive for fatigue. HENT: Negative. Eyes: Negative. Respiratory: Negative. Cardiovascular: Negative. Musculoskeletal: Positive for arthralgias and myalgias. Neurological: Negative. Psychiatric/Behavioral: Negative. Past Medical History: Past Medical History[1] Family History: Family History[2] Social History: Social History[3] Medications: Medications Taking[4] Allergies: Review of patient's allergies indicates: Patient has no known allergies. ? Objective: Filed Vitals: 02/19/25 1138 BP: 98/62 Pulse: (!) 102 Resp: 16 Temp: 98.8 ??F (37.1 ??C) TempSrc: Core SpO2: 97% Weight: 115.6 kg (254 lb 12.8 oz) Height: 1.829 m (6') Body mass index is 34.56 kg/m??. Physical Exam Constitutional: General: He is not in acute distress. Appearance: He is ill-appearing and diaphoretic. He is not toxic-appearing. Pulmonary: Effort: Pulmonary effort is normal. Musculoskeletal: Comments: Left knee is edematous, pink and warm to the touch Neurological: General: No focal deficit present. Mental Status: He is alert. Psychiatric: Behavior: Behavior normal. Judgment: Judgment normal. Assessment and Plan: 1. Arthralgia, unspecified joint 2. Bursitis of left knee, unspecified bursa Concerned about patients pain and widespread symptoms could be related to underlying infection. Recommend he seek treatment in the ER for further testing and medication management. He will call to schedule a follow up with me once discharged. Tobacco: Counseling given: No I personally spent a total of 15 minutes on the day of the encounter. This includes uwgh-zu-fbct and rof-wsvp-dv-face time I provided on the day of the encounter & excludes time spent performing separately reportable services. Side effects and less common but more severe adverse effects of recommended medical therapies were explained to the patient. Patient reminded to use MyChart or telephone follow up prn if symptoms change, worsen, or persist, or if side effect of treatment is experienced. RTC in 1 week DEBORAH ALCANTAR NP 02/19/2025 [facility] [[facility]] Past Medical History: Diagnosis Date Anemia CHF (congestive heart failure) ([facility] HHS/HCC) Depression Diabetes mellitus ([facility]) GERD (gastroesophageal reflux disease) Hypertension [2] No family history on file. [3] Social History Tobacco Use Smoking status: Former Current packs/day: 1.00 Average packs/day: 1 pack/day for 3.0 years (3.0 ttl pk-yrs) Types: Cigarettes, Cigars Passive exposure: Past Smokeless tobacco: Never Vaping Use Vaping status: Never Used Substance Use Topics Alcohol use: Yes Alcohol/week: 2.0 standard drinks of alcohol Types: 2 Standard drinks or equivalent per week Comment: socially Drug use: Never [4] Outpatient Medications Marked as Taking for the 02/19/25 encounter (Office Visit) with Deborah Alcantar NP Medication Sig Dispense Refill aspirin EC (ECOTRIN) 81 MG tablet Take 1 tablet (81 mg total) by mouth daily. atorvastatin (LIPITOR) 80 MG tablet Take 1 tablet (80 mg total) by mouth nightly at bedtime. 90 tablet 1 B-D 3CC LUER-SARAN SYR 77HY3-6/2 21G X 1-1/2 3 ML Misc USE 1 EACH EVERY 14 DAYS. brexpiprazole (REXULTI) 1 MG tablet Take 1 tablet (1 mg total) by mouth daily. 30 tablet 2 carvedilol (COREG) 25 MG tablet Take 1 tablet (25 mg total) by mouth 2 (two) times daily. 180 tablet 3 Continuous Glucose Sensor (FREESTYLE KEHINDE 3 SENSOR) Misc 1 Device by Does not apply route every 14(fourteen) days. 2 each 5 digoxin (LANOXIN) 0.25 MG tablet Take 1 tablet (0.25 mg total) by mouth daily. 90 tablet 1 empagliflozin (JARDIANCE) 25 MG tablet Take 1 tablet (25 mg total) by mouth daily. 90 tablet 1 FLUoxetine HCl 60 MG Tab Take 60 mg by mouth daily. 30 tablet 2 furosemide (LASIX) 40 MG tablet Take 1 tablet (40 mg total) by mouth daily. lisinopril (PRINIVIL) 20 MG tablet Take 1 tablet (20 mg total) by mouth daily. 90 tablet 3 metFORMIN ER, MOD, (GLUMETZA) 1000 MG 24 hr tablet Take 1 tablet (1,000 mg total) by mouth 2 (two) times daily. 180 tablet 1 semaglutide (OZEMPIC) 2 mg/dose injection (PEN) Inject 2 mg into the skin once a week. Indications:Diabetes 6 mL 1 spironolactone (ALDACTONE) 50 MG tablet Take 1 tablet (50 mg total) by mouth daily. 90 tablet 1 testosterone cypionate (DEPO TESTOSTERONE) 200 MG/ML injection INJECT 0.75ML INTRAMUSCULARLY EVERY 7 DAYS zolpidem (AMBIEN) 5 MG tablet Take 1 tablet (5 mg total) by mouth nightly as needed for Sleep. 30 tablet 1 documented in this encounter Plan of Treatment Upcoming Encounters Date Type Department Care Team (Late st Contact Info) Description 05/27/2025 8:00 AM DATABASE ANALYST Office Visit [facility] [place] [address] [place] [address] Deborah Alcantar NP [address] [place] [address] documented as of this encounter Visit Diagnoses Diagnosis Arthralgia, unspecified joint- Primary Bursitis of left knee, unspecified bursa documented in this encounter Additional Health Concerns Assessment Noted Time PHQ-9 Depression Total Score: 9 10/17/19 25 9:36 AM CDT documented as of this encounter Care Teams Skip Tender Relationship Specialty Start Date End Date Deborah Alcantar NP [address] [place] [address] PCP - General NURSE PRACTITIONER 02/08/24 documented as of this encounter
--- OUTSIDE RECORDS SUMMARY | 2025-02-19 12:50 | XMS_ITS | Encounter Summary ---
Author Organization [facility] Address [address] [place] [address] Phone Care Team Providers Care Metal Drawer Name Role Phone Chelsie Monsivais MD Primary Care Provider Ralf Eduardo MD Primary Care Provider Tomas Reddy APRN, CHILD CARE ASSISTANT Unavailable Regi Alcantar APRN, CHILD CARE ASSISTANT Primary Care Provid er Reason for Visit * Reason Comments Medication Refill Encounter Details Date Type Department Care Team (Late st Contact Info) Description 02/11/2021 Refill [facility] UROLOGY #[address] [place] [address] Danelle Bishop MD [address] [facility] [address] [place] [address] Medication Refill Social History Tobacco Use Types [...] on file documented as of this encounter Miscellaneous Notes * Telephone Encounter - Amber Tomlin RN - 02/11/2021 1:36 PM CDT Requested Prescriptions Pending Prescriptions Disp Refills ??? testosterone cypionate (DEPO-TESTOSTERONE) 200 MG/ML Solution [Pharmacy Med Name: TESTOSTERONE CYP 200 MG/ML] 2 mL 3 Sig: INJECT 1 MILLILITER EVERY 14 DAYS documented in this encounter Plan of Treatment Upcoming Encounters Date Type Department Care Team (Late st Contact Info) Description 04/21/2025 10:15 AM CDT Office Visit [facility] UROLOGY [address] [place] [address] Tomas Reddy APRN, CHILD CARE ASSISTANT [address] [place] [address] documented as of this encounter Visit Diagnoses Diagnosis Hypogonadism in male documented in this encounter Care Teams Metal Drawer Relationship Specialty Start Date End Date Adolfog Chelsie Marie MD [address] [facility] [address] [place] [address] PCP - General Family Medicine 01/13/20 08/08/21 Ralf Eduardo MD [address] [place] [address] PCP - General Adult Medicine 08/09/21 03/18/24 Regi Alcantar APRN, CHILD CARE ASSISTANT [address] [place] [address] PCP - General Advanced Practice Nurse 03/19/24 Tomas Reddy APRN, CHILD CARE ASSISTANT [address] [place] [address] Nurse Practitioner Advanced Practice Nurse 08/08/22 documented as of this encounter
--- OUTSIDE RECORDS SUMMARY | 2025-02-19 12:50 | XMS_ITS | Encounter Summary ---
Author Organization [facility] Address [address] [place] [address] Phone Care Team Providers Care Ore Dressing Engineer Name Role Phone Chelsie Monsivais MD Primary Care Provider Ralf Eduardo MD Primary Care Provider [phone] Tomas Reddy APRN, ALUM PLANT SUPERVISOR Unavailable Regi Alcantar APRN, ALUM PLANT SUPERVISOR Primary Care Provid er Reason for Visit * Reason Comments Medication Refill Encounter Details Date Type Department Care Team (Late st Contact Info) Description 07/07/2021 Refill [facility]YS[facility]IAN GROUP UROLOGY #[address] [place] [address] Chema Carmona MD [address] [place] [phone] Medication Refill Social History Tobacco Use Types [...] encounter Miscellaneous Notes * Telephone Encounter - Tommie, Alexsander D, RMA - 07/26/2021 4:16 PM CST PT scheduled for an appt OR PAYROLL SPECIALIST * Telephone Encounter - Amber Tomlin RN - 07/13/2021 3:[address] Augustin, patient will need an appointment for Testosterone refill. OR PAYROLL SPECIALIST * Telephone Encounter - Amber Tomlin RN - 07/08/2021 8:53 AM CST Medication failed the protocol, provider to review and approve the medication order if appropriate. Requested Prescriptions Pending Prescriptions Disp Refills testosterone cypionate (DEPO-TESTOSTERONE) 200 MG/ML Solution [Pharmacy Med Name: TESTOSTERONE CYP 200 MG/ML] 2 mL 3 Sig: INJECT 1 MILLILITER EVERY 14 DAYS Not Delegated - Androgens Protocol Failed - 07/07/2021 10:07 AM Failed - This refill cannot be delegated Failed - Visit with relevant provider in past 12 months or upcoming 90 days Recent Visits No visits were found meeting these conditions. Showing recent visits within past 365 days and meeting all other requirements Future Appointments No visits were found meeting these conditions. Showing future appointments within next 90 days and meeting all other requirements OR PAYROLL SPECIALIST documented in this encounter Plan of Treatment Upcoming Encounters Date Type Department Care Team (Late st Contact Info) Description 04/21/2025 10:15 AM CDT Office Visit [facility] UR[facility]Y #[address] [place] [phone] Tomas Reddy APRN, ALUM PLANT SUPERVISOR [address] [place] [address] documented as of this encounter Visit Diagnoses Diagnosis Hypogonadism in male documented in this encounter Care Teams Ore Dressing Engineer Relationship Specialty Start Date End Date Hsiang Chelsie Marie MD [address] [place] [address] [address] [place] [address] PCP - General Family Medicine 01/13/20 08/08/21 Ralf Eduardo MD [address] [place] [address] PCP - General Adult Medicine 08/09/21 03/18/24 Regi Alcantar APRN, ALUM PLANT SUPERVISOR [address] [place] [address] PCP - General Advanced Practice Nurse 03/19/24 Tomas Reddy APRN, ALUM PLANT SUPERVISOR [address] [place] [address] Nurse Practitioner Advanced Practice Nurse 08/08/22 documented as of this encounter
--- OUTSIDE RECORDS SUMMARY | 2025-02-19 12:50 | XMS_ITS | Encounter Summary ---
Author Organization [facility] Address [address] [place] [address] Phone Care Team Providers Care Heating Engineer Name Role Phone Chelsie Monsivais MD Primary Care Provider Ralf Eduardo MD Primary Care Provider [phone] Tomas Reddy APRN, MANGA ARTIST Unavailable [phone] Regi Alcantar APRN, MANGA ARTIST Primary Care Provid er Reason for Visit * Reason Comments Medication Refill Encounter Details Date Type Department Care Team (Late st Contact Info) Description 02/16/2021 Refill [facility] PH[facility]IAN GROUP UROLOGY [address] [place] [address] Danelle Bishop MD [address] [facility] [address] [place] [address] Medication Refill Social History Tobacco Use Types [...] Telephone Encounter - Amber Tomlin RN - 02/17/2021 8:01 AM CDT Medication already addressed. Faxed to pharmacy on 02/16/2021 documented in this encounter Plan of Treatment Upcoming Encounters Date Type Department Care Team (Late st Contact Info) Description 04/21/2025 10:15 AM CDT Office Visit [facility] UROLOGY [address] [place] [address] Tomas Reddy APRN, MANGA ARTIST [address] [place] [address] documented as of this encounter Visit Diagnoses Diagnosis Hypogonadism in male documented in this encounter Care Teams Heating Engineer Relationship Specialty Start Date End Date [facility] Chelsie Marie MD [address] [place] [address] [place] [address] PCP - General Family Medicine 01/13/20 08/08/21 Ralf Eduardo MD [address] [place] [address] PCP - General Adult Medicine 08/09/21 03/18/24 Regi Alcantar APRN, MANGA ARTIST [address] [place] [address] PCP - General Advanced Practice Nurse 03/19/24 Tomas Reddy APRN, MANGA ARTIST [address] [place] [address] Nurse Practitioner Advanced Practice Nurse 08/08/22 documented as of this encounter
--- OUTSIDE RECORDS SUMMARY | 2025-02-19 12:50 | XMS_ITS | Encounter Summary ---
Author Organization [facility] Address [facility] [place] [address] Care Team Providers Care Manager Cardiac Name Role Phone Regi Alcantar NP Primary Care Provider [phone] Encounter Details Date Type Department Care Team (Late st Contact Info) Description 02/29/2024 MyChart Message Enc [facility] Medical Group Multispecialty Care - [place] [address] [place] [address] Regi Alcantar NP [address] [place], [place] [id number] [place] Social History Tobacco Use Types Packs/Day Years Used Date Smoking Tobacco: Former Cigarettes Passive Smoke Exposure: Past Smokeless Tobacco: Never Alcohol Use Standard Drinks/Week Comments Yes 0 (1 standard drink = 0.6 oz pur e alcohol) socially Sex and Gender Information Value Date Recorded Sex Assigned at Male 10/16/2024 7:59 AM CDT Legal Sex Male 6:09 PM CDT Gender Identity Male 10/16/2024 7:59 AM CDT Sexual Orientation Straight 10/16/2024 7: 59 AM CDT Travel History Travel Start Travel End [place] 02/12/2025 02/13/2025 [place] 02/10/2025 02/10/2025 [place] 02/09/2025 025 documented as of this encounter Progress Notes * Yesenia Ochoa MA - 03/06/2024 10:19 AM CDT It was denied as well he needs to try other medications first * Yesenia Ochoa MA - 02/29/2024 1:35 PM CDT It was denied because it is not covered by his plan documented in this encounter Plan of Treatment Upcoming Encounters Date Type Department Care Team (Late st Contact Info) Description 05/27/2025 8:00 AM NEWSCAST PRODUCER Office Visit [facility] Medical Group Multispecialty Care - [place] [address] [place], [place] [id number] Regi Alcantar NP [address] [place] [address] documented as of this encounter Visit Diagnoses Not on filedocumented in this encounter Care Teams Manager Cardiac Relationship Specialty Start Date End Date Regi Alcantar NP [address] [place], [place] [address] PCP - General NURSE PRACTITIONER 02/08/24 documented as of this encounter
--- OUTSIDE RECORDS SUMMARY | 2025-02-19 12:51 | XMS_ITS | Encounter Summary ---
Author Organization [facility] Facility Care Team Providers Care Machine Folder Name Role Phone Chelsie Nair MD Primary Care Provider [phone] Charles Medina MD Unavailable [phone] Ralf Eduardo MD Primary Care Provider [phone] Wilda Estes MD Unavailable [phone] Danelle Bishop MD Unavailable [phone] Nupur Eduardo MD Primary Care Provider [phone] Encounter Details Date Type Department Care Team (Latest Contact Info) Description 03/28/2018 Orders Only [facility] CLINCONV ProviderStanley MD [address] [place] [address] Social History Tobacco Use Types Packs/Day Years Used Date Smoking Tobacco: Former Smokeless Tobacco: Never Alcohol Use Standard Drinks/Week Comments No 0 (1 standard drink = 0.6 oz pur e alcohol) Sex and Gender Information Value Date Recorded Sex Assigned at Not on file Legal Sex Male 6:21 PM MERCHANDISING CONSULTANT Gender Identity Not on file Sexual Orientation Not on file documented as of this encounter Plan of Treatment Not on file documented as of this encounter Procedures Procedure Name Priority Date/Time Associated Diagnosis Comments CARDIOLOGY REPORT 03/28/2018 12: 00 AM CDT documented in this encounter Results * CARDIOLOGY REPORT (03/28/2018 12:00 AM CDT) Anatomical Region Laterality Modality Other Narrative 03/28/2018 12:00 AM CDT Ordered by an unspecified provider. us Historical Provider [facility] CARDIAC SERVICES PROCE DURES Final Result documented in this encounter Visit Diagnoses Not on filedocumented in this encounter Care Teams Machine Folder Relationship Specialty Start Date End Date Chelsie Nair MD [address] [place] [address] DR SAIMA Dominguez [facility] [address] [place] [address] PCP - General Family Medicine 09/05/17 01/01/20 Ralf Eduardo MD [address] [place] [address] DR SAIMA Dominguez [address] [address] PCP - General Internal Medicine 02/24/20 Nupur Eduardo MD [address] [facility] [address] [place] [phone] PCP - General 01/02/20 02/23/20 Charles Medina MD [address] [place] [address] DR SAIMA Dominguez [address] [address] Hotel Assistant General Manager Interventional Cardiology 09/08/19 Wilda Estes MD [address] [place] [address] DR SAIMA Dominguez [address] [address] Surgeon Orthopedic Surgery 02/24/20 Danelle Bishop MD [address] [place] [address] DR SAIMA Dominguez [facility] [address] [place] [address] Referring Physician Urology 02/24/20 documented as of this encounter
--- OUTSIDE RECORDS SUMMARY | 2025-02-19 12:51 | XMS_ITS | Encounter Summary ---
Author Organization [facility] Facility Care Team Providers Care Center Medical And Lab Director Name Role Phone Chelsie Nair MD Primary Care Provider [phone] Charles Medina MD Unavailable [phone] Ralf Eduardo MD Primary Care Provider [phone] Wilda Estes MD Unavailable [phone] Danelle Bishop MD Unavailable [phone] Nupur Eduardo MD Primary Care Provider [phone] Encounter Details Date Type Department Care Team (Latest Contact Info) Description 04/16/2017 Orders Only [facility] CLINCONV ProviderStanley MD [address] [place] [address] Social History Tobacco Use Types Packs/Day Years Used Date Smoking Tobacco: Never Assessed Sex and Gender Information Value Date Recorded Sex Assigned at Not on file Legal Sex Male 6:21 PM AIRPORT ENGINEER Gender Identity Not on file Sexual Orientation Not on file documented as of this encounter Plan of Treatment Not on file documented as of this encounter Procedures Procedure Name Priority Date/Time Associated Diagnosis Comments CARDIOLOGY REPORT 06/26/2017 12: 00 AM AIRPORT ENGINEER documented in this encounter Results * CARDIOLOGY REPORT (06/26/2017 12:00 AM AIRPORT ENGINEER) Anatomical Region Laterality Modality Other Narrative 06/26/2017 12:00 AM AIRPORT ENGINEER Ordered by an unspecified provider. us Historical Provider [facility] CARDIAC SERVICES LUANNE CHAMBERLAIN Final Result documented in this encounter Visit Diagnoses Not on filedocumented in this encounter Care Teams Center Medical And Lab Director Relationship Specialty Start Date End Date Chelsie Nair MD [address] [facility] [address] SAIMA Dominguez [address] [address] PCP - General Family Medicine 09/05/17 01/01/20 Ralf Eduardo MD [address] [place] [address] DR SAIMA Dominguez [address] [address] PCP - General Internal Medicine 02/24/20 Nupur Eduardo MD [address] [place] [address] [place] [address] PCP - General 01/02/20 02/23/20 Charles Medina MD [address] [place] [address] DR SAIMA Dominguez [address] [address] Solution Analyst Interventional Cardiology 09/08/19 Wilda Estes MD [address] [place] [address] DR SAIMA Dominguez [address] [address] Surgeon Orthopedic Surgery 02/24/20 Danelle Bishop MD [address] [place] [address] DR SAIMA Dominguez [address] [address] Referring Physician Urology 02/24/20 documented as of this encounter
--- OUTSIDE RECORDS SUMMARY | 2025-02-19 12:51 | XMS_ITS | Encounter Summary ---
Author Organization [facility] Facility Care Team Providers Care Lumber Tailer Name Role Phone Chelsie Nair MD Primary Care Provider [phone] Charles Medina MD Unavailable + [phone] Ralf Eduardo MD Primary Care Provider + [phone] Wilda Estes MD Unavailable [phone] Danelle Bishop MD Unavailable [phone] Nupur Eduardo MD Primary Care Provider [phone] Encounter Details Date Type Department Care Team (Latest Contact Info) Description 04/08/2016 Orders Only [facility] CLINCONV ProviderStanley MD [address] [place] [address] Social History Tobacco Use Types Packs/Day Years Used Date Smoking Tobacco: Never Assessed Sex and Gender Information Value Date Recorded Sex Assigned at Not on file Legal Sex Male 6:21 PM AUTOMOBILE APPRAISER Gender Identity Not on file Sexual Orientation Not on file documented as of this encounter Plan of Treatment Not on file documented as of this encounter Procedures Procedure Name Priority Date/Time Associated Diagnosis Comments CARDIOLOGY REPORT 05/24/2016 12: 00 AM CDT documented in this encounter Results * CARDIOLOGY REPORT (05/24/2016 12:00 AM CDT) Anatomical Region Laterality Modality Other Narrative 05/24/2016 12:00 AM CDT Ordered by an unspecified provider. us Historical Provider [facility] LUANNE CHAMBERLAIN Final Result documented in this encounter Visit Diagnoses Not on filedocumented in this encounter Care Teams Lumber Tailer Relationship Specialty Start Date End Date Chelsie Nair MD [address] [facility] [address] SAIMA Dominguez [address] [address] PCP - General Family Medicine 09/05/17 01/01/20 Ralf Eduardo MD [address] [place] [address] DR SAIMA Dominguez [address] [address] PCP - General Internal Medicine 02/24/20 Nupur Eduardo MD [address] [place] [address] [address] [place] [address] PCP - General 01/02/20 02/23/20 Charles Medina MD [address] [place] [address] DR SAIMA Dominguez [address] [address] Drop Hammer Operator Helper Interventional Cardiology 09/08/19 Wilda Estes MD [address] [place] [address] DR SAIMA Dominguez [address] [address] Surgeon Orthopedic Surgery 02/24/20 Danelle Bishop MD [address] [place] [address] DR SAIMA Dominguez [address] [address] Referring Physician Urology 02/24/20 documented as of this encounter
--- OUTSIDE RECORDS SUMMARY | 2025-02-19 12:51 | XMS_ITS | Encounter Summary ---
Author Organization [facility] Address [address] [place] [address] Phone Care Team Providers Care Housing Relocation Name Role Phone Tomas Reddy APRN, CNP Unavailable Regi Alcantar APRN, GEOFF Primary Care Provid er Encounter Details Date Type Department Care Team (Late Contact Info) Description 01/12/2025 Results Follow-Up [facility] [place] [address] Tomas Reddy APRN, GEOFF [address] [place] [address] HEMATOCRIT, PSA DIAGNOSTIC,TOTAL, TESTOSTERONE, ESTRADIOL Social History Tobacco Use Types Packs/Day Years [...] Encounters Date Type Department Care Team (Late Contact Info) Description 04/21/2025 10:15 AM CDT Office Visit [facility] [place] [address] Tomas Reddy APRN, COMPLIANCE INTERN [address] [place] [address] documented as of this encounter Visit Diagnoses Not on filedocumented in this encounter Care Teams Housing Relocation Relationship Specialty Start Date End Date Regi Alcantar APRN, COMPLIANCE INTERN [address] [place] [address] PCP - General Advanced Practice Nurse 03/19/24 Tmoas Reddy APRN, COMPLIANCE INTERN [address] [place] [address] Nurse Practitioner Advanced Practice Nurse 08/08/22 documented as of this encounter
--- OUTSIDE RECORDS SUMMARY | 2025-02-19 12:51 | XMS_ITS | Encounter Summary ---
Author Organization [facility] Address [address] [place] [address] Phone Care Team Providers Care Agricultural Engineering Technicians Name Role Phone Ralf Eduardo MD Primary Care Provider [phone] Tomas Reddy APRN, RESEARCH ANTHROPOLOGIST Unavailable Regi Alcantar APRN, RESEARCH ANTHROPOLOGIST Primary Care Provid er Reason for Visit * Reason Comments Medication Refill Encounter Details Date Type Department Care Team (Late st Contact Info) Description 10/31/2022 Refill [facility] [place] [phone] Tomas Reddy APRN, RESEARCH ANTHROPOLOGIST [address] [place] [address] Medication Refill Social History Tobacco Use Types [...] encounter Miscellaneous Notes * Telephone Encounter - Alexsander Reilly, [facility] - 11/28/2022 9:14 AM CDT Lvm for pt to call back * Telephone Encounter - Tomas Reddy APRN, CNP - 11/28/2022 8:26 AM CDT Labs in 2 weeks with follow-up after. Needs labs and OV prior to further refills documented in this encounter Plan of Treatment Upcoming Encounters Date Type Department Care Team (Late st Contact Info) Description 04/21/2025 10:15 AM CDT Office Visit [facility] [place] [address] Tomas Reddy APRN, CNP [address] [place] [address] documented as of this encounter Visit Diagnoses Diagnosis Hypogonadism in male documented in this encounter Care Teams Agricultural Engineering Technicians Relationship Specialty Start Date End Date Ralf Eduardo MD [address] [place] [address] PCP - General Adult Medicine 08/09/21 03/18/24 Regi Alcantar APRN, CNP [address] [place] [address] PCP - General Advanced Practice Nurse 03/19/24 Tomas Reddy APRN, CNP [address] [place] [address] Nurse Practitioner Advanced Practice Nurse 08/08/22 documented as of this encounter
--- OUTSIDE RECORDS SUMMARY | 2025-02-19 12:51 | XMS_ITS | Patient Health Record ---
Author Organization [facility] Address [address] [place] [address] Care Team Providers Care [place] Program Coordinator Name Role Phone Konstantin Khan Unavailable [phone] Reason For Referral No Information Medications Medication SIG (Take, Route, Frequency, Duration) Notes Start Date End Date Status Ketoconazole 2% External 08/09/2023 Act jocelyn HumaLOG KwikPen 100 UNIT/ML Subcutaneous 08/09/2023 Active tiZANidine HCl 6 MG Oral 08/09/2023 Active SAFETYGLIDE NEEDLE 18 gauge x 1 1/2 MISCELLANEOUS *Reorder from Intersect ENT for eRx and Interaction Alerts* 08/09/2023 Active Atorvastatin Calcium 40 MG Oral 08/09/2023 Active FLUoxetine HCl 40 MG 1 capsule Oral Once a day; Duration: 90 days Active DIGOXIN 250 MCG (0.25 MG) TABLET *Reorder from Intersect ENT for eRx and Interaction Alerts* 08/09/2023 Active Spironolactone 50 MG Oral 08/09/2023 Active Esomeprazole Magnesium 40 MG Oral 08/09/2023 Active Furosemide 40 MG Oral 08/09/2023 Ac tive Lisinopril 20 MG Oral 08/09/2023 Ac tive Carvedilol 25 MG Oral 08/09/2023 Ac tive Testosterone Cypionate 200 MG/ML Intramuscular 08/09/2023 Active Eszopiclone 3 MG Oral 08/09/2023 Ac tive FLUoxetine HCl 20 MG Oral 08/09/2023 Active LUER-SARAN SYRINGE-NEEDLE 3 mL 21 gauge x 1 1/2 MISCELLANEOUS *Reorder from Intersect ENT for eRx and Interaction Alerts* 08/09/2023 Active Lantus SoloStar 100 UNIT/ML Subcutaneous 08/09/2023 Active Meloxicam 15 MG Oral 08/09/2023 Act jocelyn ARIPiprazole 2 MG Oral 08/09/2023 A ctive traZODone HCl 50 MG Oral 08/09/2023 Active Immunizations Vaccine Route Administration Date Status Comme nts Nile Covid-19 Vaccine Unknown 12/23/2020 Administere d Pneumococcal polysaccharide PPV23 Unknown 07/23/2016 Ad ministered Tdap Unknown 08/27/2017 Administered Plan Of Treatment No Information Insurance Providers Payer Name Payer Address Payer Phone Subscriber Number Group Number Insured Name Patient Relationship to Insured Coverage Start Date Coverage End Date [facility] [address] [place] [address] [id number] ISSA COLON Self - patient is the insured Medical (General) History Surgical History Surgery Date(Month/Year) Repair of ankle ([id number]) February 08, 018 & Aug Other
--- OUTSIDE RECORDS SUMMARY | 2025-02-19 12:51 | XMS_ITS | Encounter Summary ---
Author Organization [facility] Address [address] [place] [address] Phone Care Team Providers Care Seo Consultant Name Role Phone Rafl Eduardo MD Primary Care Provider Tomas Reddy APRN, CLAIMS SUPPORT SPECIALIST Unavailable Regi Alcantar APRN, CLAIMS SUPPORT SPECIALIST Primary Care Provid er Reason for Visit * Reason Comments Medication Refill Encounter Details Date Type Department Care Team (Late st Contact Info) Description 07/14/2023 Refill [facility] [address] [place] [phone] Tomas Reddy APRN, CLAIMS SUPPORT SPECIALIST [address] [place] [address] Medication Refill Social History Tobacco Use Types [...] Description 04/21/2025 10:15 AM CDT Office Visit [facility] [address] [place] [address] Tomas Reddy APRN, CLAIMS SUPPORT SPECIALIST [address] [place] [address] documented as of this encounter Visit Diagnoses Diagnosis Hypogonadism in male documented in this encounter Care Teams Seo Consultant Relationship Specialty Start Date End Date Ralf Eduardo MD [address] [place] [address] PCP - General Adult Medicine 08/09/21 03/18/24 Regi Alcantar APRN, CLAIMS SUPPORT SPECIALIST [address] [place] [address] PCP - General Advanced Practice Nurse 03/19/24 Tomas Reddy APRN, CLAIMS SUPPORT SPECIALIST [address] [place] [address] Nurse Practitioner Advanced Practice Nurse 08/08/22 documented as of this encounter
--- OUTSIDE RECORDS SUMMARY | 2025-02-19 12:51 | XMS_ITS | Encounter Summary ---
Author Organization [facility] Address [facility] [place] [address] Care Team Providers Care Meat Cutter Apprentice Name Role Phone Regi Alcantar NP Primary Care Provider [phone] Encounter Details Date Type Department Care Team (Latest Contact Info) Description 09/26/2024 SquareHub Message Enc [place] [address] [facility] [address] [place] [address] Trinh, [facility] Provider Diabetic Eye Screening Social History Tobacco Use Types Packs/Day Years Used Date Smoking Tobacco: Former Cigarettes 1 3 Cigars Passive Smoke Exposure: Past Smokeless Tobacco: Never Alcohol Use Standard Drinks/Week Comments Yes 2 (1 standard drink = 0.6 oz pur e alcohol) socially PHQ-2 Answer Date Recorded Patient Health Questionnaire-2 Score 5 06/18/2024 Sex and Gender Information Value Date Recorded Sex Assigned at Male 10/16/2024 7:59 AM CDT Legal Sex Male 6:09 PM CDT Gender Identity Male 10/16/2024 7:59 AM CDT Sexual Orientation Straight 10/16/2024 7: 59 AM CDT Travel History Travel Start Travel End [place] 02/12/2025 02/13/2025 [place] 02/10/2025 02/10/2025 [place] 02/09/2025 025 documented as of this encounter Plan of Treatment Upcoming Encounters Date Type Department Care Team (Late st Contact Info) Description 05/27/2025 8:00 AM FINANCE BUSINESS MANAGER [facility] [place] [address] [place] [address] Regi Alcantar NP [address] [facility] [address] [place] [address] documented as of this encounter Visit Diagnoses Not on filedocumented in this encounter Additional Health Concerns Assessment Noted Time PHQ-9 Depression Total Score: 13 06/18/ 024 1:47 PM FINANCE BUSINESS MANAGER documented as of this encounter Care Teams Meat Cutter Apprentice Relationship Specialty Start Date End Date Regi Alcantar NP [address] [facility] [address] [place] [address] PCP - General NURSE PRACTITIONER 02/08/24 documented as of this encounter
--- OUTSIDE RECORDS SUMMARY | 2025-02-19 12:51 | XMS_ITS | Encounter Summary ---
Author Organization [facility] Facility Care Team Providers Care Cylinder Valve Repairer Name Role Phone Chelsie Nair MD Primary Care Provider [phone] Charles Medina MD Unavailable + [phone] Ralf Eduardo MD Primary Care Provider + [phone] Wilda Estes MD Unavailable [phone] Danelle Bishop MD Unavailable [phone] Nupur Eduardo MD Primary Care Provider [phone] Encounter Details Date Type Department Care Team (Latest Contact Info) Description 04/09/2016 Orders Only [facility]G CLINCONV ProviderStanley MD [address] [place] [address] Social History Tobacco Use Types Packs/Day Years Used Date Smoking Tobacco: Never Assessed Sex and Gender Information Value Date Recorded Sex Assigned at Not on file Legal Sex Male 6:21 PM [facility] Gender Identity Not on file Sexual Orientation [...] on filedocumented in this encounter Care Teams Cylinder Valve Repairer Relationship Specialty Start Date End Date Chelsie Nair MD [address] [facility] [address] SAIMA Dominguez [address] [address] PCP - General Family Medicine 09/05/17 01/01/20 Ralf Eduardo MD [address] [place] [address] DR SAIMA Dominguez [address] [address] PCP - General Internal Medicine 02/24/20 Nupur Eduardo MD [address] [place] [address] [address] [place] [address] PCP - General 01/02/20 02/23/20 Charles Medina MD [address] [place] [address] DR SAIMA Dominguez [address] [address] Cementer Machine Applicator Interventional Cardiology 09/08/19 Wilda Estes MD [address] [place] [address] DR SAIMA Dominguez [address] [address] Surgeon Orthopedic Surgery 02/24/20 Danelle Bishop MD [address] [place] [address] DR SAIMA Dominguez [address] [address] Referring Physician Urology 02/24/20 documented as of this encounter
--- OUTSIDE RECORDS SUMMARY | 2025-02-19 12:51 | XMS_ITS | Encounter Summary ---
Author Organization [facility] Address [facility] [place] [address] Care Team Providers Care Book Sewer Name Role Phone Regi Alcantar NP Primary Care Provider [phone] Encounter Details Date Type Department Care Team (Late st Contact Info) Description 03/11/2024 L[employer] Message Enc [place] [address] [facility] [address] [place], [place] [id number] Trinh, [facility] Provider Ozempic Social History Tobacco Use Types Packs/Day Years [...] CDT Travel History Travel Start Travel End [place] 02/12/2025 02/13/2025 [place] 02/10/2025 02/10/2025 [place] 02/09/2025 025 documented as of this encounter Plan of Treatment Upcoming Encounters Date Type Department Care Team (Late st Contact Info) Description 05/27/2025 8:00 AM LABOR LAW PROFESSOR [facility] [place] [address] [facility] [address] [place] [address] Regi Alcantar, MELLOWING MACHINE OPERATOR [address] [place] [address] documented as of this encounter Visit Diagnoses Not on filedocumented in this encounter Care Teams Book Sewer Relationship Specialty Start Date End Date Regi Alcantar MELLOWING MACHINE OPERATOR [address] [place] [address] PCP - General NURSE PRACTITIONER 02/08/24 documented as of this encounter
--- OUTSIDE RECORDS SUMMARY | 2025-02-19 12:51 | XMS_ITS | Encounter Summary ---
Author Organization [facility] Address [address] [place] [address] Phone Care Team Providers Care Picture Enlarger Name Role Phone Ralf Eduardo MD Primary Care Provider [phone] Tomas Reddy APRN, BRAKE LINING DRILLER Unavailable [phone] Regi Alcantar APRN, BRAKE LINING DRILLER Primary Care Provid er Reason for Visit * Reason Comments Medication Refill Encounter Details Date Type Department Care Team (Late st Contact Info) Description 12/21/2022 Refill [facility] #2 [place] [phone] Tomas Reddy APRN, BRAKE LINING DRILLER [address] [place] [address] Medication Refill Social History Tobacco Use Types [...] on file Sexual Orientation Not on file COVID-19 Exposure Response Date Recorded In the last 10 days, have yo u been in contact with someone who was confirmed or suspected to have Coronavirus/COVID-19? No / Unsure 12/21/2022 11:39 AM CDT documented as of this encounter Miscellaneous Notes * Telephone Encounter - Henny Leahy - 01/02/2023 2:58 PM CDT Labs are completed and follow up is scheduled * Telephone Encounter - Tomas Reddy APRN, CNP - 01/02/2023 1:16 PM CDT Patient needs repeat labs and follow-up visit prior to further refills documented in this encounter Plan of Treatment Upcoming Encounters Date Type Department Care Team (Late st Contact Info) Description 04/21/2025 10:15 AM CDT Office Visit [facility] [place] [address] Tomas Reddy APRN, CNP [address] [place] [address] documented as of this encounter Visit Diagnoses Diagnosis Hypogonadism in male documented in this encounter Care Teams Picture Enlarger Relationship Specialty Start Date End Date Ralf Eduardo MD [address] [place] [address] PCP - General Adult Medicine 08/09/21 03/18/24 Regi Alcantar APRN, CNP #[address] [place] [address] PCP - General Advanced Practice Nurse 03/19/24 Tomas Reddy APRN, CNP #[address] [place] [address] Nurse Practitioner Advanced Practice Nurse 08/08/22 documented as of this encounter
--- OUTSIDE RECORDS SUMMARY | 2025-02-19 12:51 | XMS_ITS | Encounter Summary ---
Author Organization [facility] Address [address] [place] [address] Care Team Providers Care Operations Team Leader Name Role Phone Regi Alcantar NP Primary Care Provider [phone] Encounter Details Date Type Department Care Team (Late Contact Info) Description 01/22/2025 MyChart Message Enc [facility] [place] [address] [place] [address] Regi Alcantar NP [address] [place] [address] cardiology Social History Tobacco Use Types Packs/Day Years [...] CDT Travel History Travel Start Travel End [place] 02/12/2025 02/13/2025 [place] 02/10/2025 02/10/2025 [place] 02/09/2025 025 documented as of this encounter Plan of Treatment Upcoming Encounters Date Type Department Care Team (Late st Contact Info) Description 05/27/2025 8:00 AM TUNG NUT GROWER Office Visit [facility] [place] [address] [place] [address] Regi Alcantar NP [address] [place] [address] documented as of this encounter Visit Diagnoses Not on filedocumented in this encounter Additional Health Concerns Assessment Noted Time PHQ-9 Depression Total Score: 9 10/17/19 25 9:36 AM CDT documented as of this encounter Care Teams Operations Team Leader Relationship Specialty Start Date End Date Regi Alcantar NP [address] [facility] [address] [place] [address] PCP - General NURSE PRACTITIONER 02/08/24 documented as of this encounter
--- OUTSIDE RECORDS SUMMARY | 2025-02-19 12:51 | XMS_ITS | Encounter Summary ---
Author Organization [facility] Facility Care Team Providers Care Museum Host/Hostess Name Role Phone Chelsie Nair MD Primary Care Provider [phone] Charles Medina MD Unavailable [phone] Ralf Eduardo MD Primary Care Provider + [phone] Wilda Estes MD Unavailable [phone] Danelle Bishop MD Unavailable [phone] Nupur Eduardo MD Primary Care Provider [phone] Encounter Details Date Type Department Care Team (Latest Contact Info) Description 05/07/2014 Orders Only MMG CLINCONV ProviderStanley MD [address] [place] [address] Social History Tobacco Use Types Packs/Day Years Used Date Smoking Tobacco: Never Assessed Sex and Gender Information Value Date Recorded Sex Assigned at Not on file Legal Sex Male 6:21 PM CRAB CATCHER Gender Identity Not on file Sexual Orientation Not on file documented as of this encounter Plan of Treatment Not on file documented as of this encounter Procedures Procedure Name Priority Date/Time Associated Diagnosis Comments CARDIOLOGY REPORT 01/14/2016 12: 00 AM CDT documented in this encounter Results * CARDIOLOGY REPORT (01/14/2016 12:00 AM CDT) Anatomical Region Laterality Modality Other Narrative 01/14/2016 12:00 AM CDT Ordered by an unspecified provider. us Historical Provider [facility] LUANNE CHAMBERLAIN Final Result documented in this encounter Visit Diagnoses Not on filedocumented in this encounter Care Teams Museum Host/Hostess Relationship Specialty Start Date End Date Chelsie Nair MD [address] [facility] [address] SAIMA Dominguez [address] [address] PCP - General Family Medicine 09/05/17 01/01/20 Ralf Eduardo MD [address] [place] [address] DR SAIMA Dominguez [address] [address] PCP - General Internal Medicine 02/24/20 Nupur Eduardo MD [address] [place] [address] [address] [place] [address] PCP - General 01/02/20 02/23/20 Charles Medina MD [address] [place] [address] DR SAIMA Dominguez [address] [address] Grain Combine Driver Interventional Cardiology 09/08/19 Wilda Estes MD [address] [place] [address] DR SAIMA Dominguez [address] [address] Surgeon Orthopedic Surgery 02/24/20 Danelle Bishop MD [address] [place] [address] DR SAIMA Dominguez [address] [address] Referring Physician Urology 02/24/20 documented as of this encounter
--- OUTSIDE RECORDS SUMMARY | 2025-02-19 12:51 | XMS_ITS | Encounter Summary ---
Author Organization [facility] Address [address] [place] [address] Care Team Providers Care Audio Operator Name Role Phone Regi Alcantar NP Primary Care Provider [phone] Encounter Details Date Type Department Care Team (Late st Contact Info) Description 03/06/2024 MyChart Message Enc [facility] [place] [address] [place], [place] [phone] Regi Alcantar NP [address] [place], [place] [address] medication Social History Tobacco Use Types Packs/Day Years [...] CDT Travel History Travel Start Travel End [place] 02/12/2025 02/13/2025 [place] 02/10/2025 02/10/2025 [place] 02/09/2025 025 documented as of this encounter Plan of Treatment Upcoming Encounters Date Type Department Care Team (Late st Contact Info) Description 05/27/2025 8:00 AM MACHINE PROGRAMMER Office Visit [facility] [place] [address] [place] [address] Regi Alcantar NP [address] [facility] [address] [place] [address] documented as of this encounter Visit Diagnoses Not on filedocumented in this encounter Care Teams Audio Operator Relationship Specialty Start Date End Date Regi Alcantar NP [address] [facility] [address] [place] [address] PCP - General NURSE PRACTITIONER 02/08/24 documented as of this encounter
--- OUTSIDE RECORDS SUMMARY | 2025-02-19 12:51 | XMS_ITS | Encounter Summary ---
Author Organization [facility] Care Team Providers Care General Farmworker Name Role Phone Chelsie Nair MD Primary Care Provider [phone] Charles Medina MD Unavailable [phone] Ralf Eduardo MD Primary Care Provider [phone] Wilda Estes MD Unavailable [phone] Danelle Bishop MD Unavailable [phone] Nupur Eduardo MD Primary Care Provider [phone] Encounter Details Date Type Department Care Team (Latest Contact Info) Description 04/16/2014 Orders Only [facility] CLINCONV ProviderStanley MD [address] [place] [address] Social History Tobacco Use Types Packs/Day Years Used Date Smoking Tobacco: Never Assessed Sex and Gender Information Value Date Recorded Sex Assigned at Not on file Legal Sex Male 6:21 PM NUTRITION ASSOCIATE Gender Identity Not on file Sexual Orientation [...] on filedocumented in this encounter Care Teams General Farmworker Relationship Specialty Start Date End Date Chelsie Nair MD [address] [facility] [address] SAIMA Dominguez [address] [address] PCP - General Family Medicine 09/05/17 01/01/20 Ralf Eduardo MD [address] [place] [address] DR SAIMA Dominguez [address] [address] PCP - General Internal Medicine 02/24/20 Nupur Eduardo MD [address] [place] [address] [address] [place] [address] PCP - General 01/02/20 02/23/20 Charles Medina MD [address] [place] [address] DR SAIMA Dominguez [address] [address] Director Of Regional Sales Interventional Cardiology 09/08/19 Wilda Estes MD [address] [place] [address] DR SAIMA Dominguez [address] [address] Surgeon Orthopedic Surgery 02/24/20 Danelle Bishop MD [address] [place] [address] DR SAIMA Dominguez [address] [address] Referring Physician Urology 02/24/20 documented as of this encounter
--- OUTSIDE RECORDS SUMMARY | 2025-02-19 12:51 | XMS_ITS | Encounter Summary ---
Author Organization [facility] Address [address] [place] [address] Phone Care Team Providers Care Crisis Specialist Name Role Phone Tomas Reddy APRN, CNP Unavailable [phone] Regi Alcantar APRN, CNP Primary Care Provid er Reason for Visit * Reason Comments Medication Refill Encounter Details Date Type Department Care Team (Late st Contact Info) Description 11/17/2024 Refill [facility] [address] [place] [address] Tomas Reddy APRN, CNP [address] [place] [address] Medication Refill Social History Tobacco Use Types [...] encounter Miscellaneous Notes * Telephone Encounter - Mis Noriega RN - 11/17/2024 3:33 PM CDT Medication failed the protocol, provider to review and approve the medication order if appropriate. Requested Prescriptions Pending Prescriptions Disp Refills Tadalafil 5 MG Tablet [Pharmacy Med Name: Tadalafil Oral Tablet 5 MG] 30 Tablet 0 Sig: TAKE 1 TABLET BY MOUTH NEEDED FOR ERECTILE DYSFUNCTION. MAY TAKE AN ADDETIONAL 1-3 TABS NEEDED FOR ED. DO NOT EXCEED 4 TABLETS IN 24 HOURS. Erectile Dysfunction Medication Protocol Failed - 11/17/2024 3:33 PM Failed - Erectile dysfunction on problem list Passed - Visit with relevant provider in past 12 months or upcoming 90 days Recent Visits Date Type Provider Dept 08/26/24 Office Visit Tomas Reddy APRN, CNP [facility] 04/15/24 Office Visit Tomas Reddy APRN, CNP [facility] [place] Showing recent visits within past 365 days and meeting all other requirements Future Appointments Date Type Provider Dept 11/24/24 Appointment Tomas Reddy APRN, CNP [facility] [place] Showing future appointments within next 90 days and meeting all other requirements Passed - Absence of nitrates on med list documented in this encounter Plan of Treatment Upcoming Encounters Date Type Department Care Team (Late st Contact Info) Description 04/21/2025 10:15 AM CDT Office Visit [facility] [address] [place] [address] Tomsa Reddy APRN, CNP [address] [place] [address] documented as of this encounter Visit Diagnoses Diagnosis Erectile dysfunction due to arterial insufficiency Impotence of organic origin Hypogonadism in male documented in this encounter Care Teams Crisis Specialist Relationship Specialty Start Date End Date Regi Alcantar APRN, CNP [address] [place] [address] PCP - General Advanced Practice Nurse 03/19/24 Tomas Reddy APRN, CNP [address] [place] [address] Nurse Practitioner Advanced Practice Nurse 08/08/22 documented as of this encounter
--- OUTSIDE RECORDS SUMMARY | 2025-02-19 12:51 | XMS_ITS | Encounter Summary ---
Author Organization [facility] Address [address] [place] [address] Phone Care Team Providers Care Ux Design Lead Name Role Phone Ralf Eduardo MD Primary Care Provider [phone] Tomas Reddy APRN, CNP Unavailable [phone] Regi Alcantar APRN, CNP Primary Care Provid er Reason for Visit * Reason Comments Medication Refill Encounter Details Date Type Department Care Team (Late st Contact Info) Description 07/15/2022 Refill [facility] [address] [place] [id number] Tomas Reddy APRN, CNP [address] [place] [address] Medication Refill Social History Tobacco Use Types [...] encounter Miscellaneous Notes * Telephone Encounter - Tomas Reddy APRN, CNP - 08/01/2022 11:12 AM HOUSE SHORER Testosterone is low. Patient needs office visit to discuss titration. One month refill provided E SHORER * Telephone Encounter - Henny Leahy - 07/28/2022 1:28 PM CST Pt had labs done on 07-26-2022 E SHORER * Telephone Encounter - Henny Leahy - 07/18/2022 1:18 PM CST Canceling due to pt needing labs done E SHORER * Telephone Encounter - Henny Leahy - 07/18/2022 1:17 PM CST Pt made aware; lab order date extended and faxed to [facility] in [place] E SHORER documented in this encounter Plan of Treatment Upcoming Encounters Date Type Department Care Team (Late st Contact Info) Description 04/21/2025 10:15 AM CDT Office Visit [facility] [address] [place] [address] Tomas Reddy APRN, ADHESIVE PRIMER [address] [place] [address] documented as of this encounter Visit Diagnoses Diagnosis Hypogonadism in male documented in this encounter Care Teams Ux Design Lead Relationship Specialty Start Date End Date Ralf Eduardo MD [address] [place] [address] PCP - General Adult Medicine 08/09/21 03/18/24 Regi Alcantar APRN, ADHESIVE PRIMER [address] [place] [address] PCP - General Advanced Practice Nurse 03/19/24 Tomas Reddy APRN, ADHESIVE PRIMER [address] [place] [address] Nurse Practitioner Advanced Practice Nurse 08/08/22 documented as of this encounter
--- OUTSIDE RECORDS SUMMARY | 2025-02-19 12:51 | XMS_ITS | Encounter Summary ---
Author Organization [facility] Care Team Providers Care Airport Utility Worker Name Role Phone Chelsie Nair MD Primary Care Provider [phone] Charles Medina MD Unavailable [phone] Ralf Eduardo MD Primary Care Provider [phone] Wilda Estes MD Unavailable [phone] Danelle Bishop MD Unavailable [phone] Nupur Eduardo MD Primary Care Provider [phone] Encounter Details Date Type Department Care Team (Latest Contact Info) Description 10/08/2015 Orders Only [facility] CLINCONV ProviderStanley MD [address] [place] [address] Social History Tobacco Use Types Packs/Day Years Used Date Smoking Tobacco: Never Assessed Sex and Gender Information Value Date Recorded Sex Assigned at Not on file Legal Sex Male 6:21 PM INSTRUCTIONAL WRITER Gender Identity Not on file Sexual Orientation Not on file documented as of this encounter Plan of Treatment Not on file documented as of this encounter Procedures Procedure Name Priority Date/Time Associated Diagnosis Comments CARDIOLOGY REPORT 01/14/2016 12: 00 AM CDT CARDIOLOGY REPORT 01/14/2016 12: 00 AM CDT documented in this encounter Results * CARDIOLOGY REPORT (01/14/2016 12:00 AM CDT) Anatomical Region Laterality Modality Other Narrative 01/14/2016 12:00 AM CDT Ordered by an unspecified provider. us Historical Provider CV CARDIAC SERVICES PROCE DURES Final Result * CARDIOLOGY REPORT (01/14/2016 12:00 AM CDT) Anatomical Region Laterality Modality Other Narrative 01/14/2016 12:00 AM CDT Ordered by an unspecified provider. Historical Provider CV CARDIAC SERVICES PROCE DURES Final Result documented in this encounter Visit Diagnoses Not on filedocumented in this encounter Care Teams Airport Utility Worker Relationship Specialty Start Date End Date Chelsie Nair MD [address] [place] [address] DR SAIMA Dominguez [facility] [address] [place] [address] PCP - General Family Medicine 09/05/17 01/01/20 Ralf Eduardo MD [address] [place] [address] DR SAIMA Dominguez [address] [address] PCP - General Internal Medicine 02/24/20 Nupur Eduardo MD [address] [facility] [address] [place] [id number] PCP - General 01/02/20 02/23/20 Charles Medina MD [address] [place] [address] DR SAIMA Dominguez [facility] [address] [place] [address] Book Retailer Interventional Cardiology 09/08/19 Wilda Estes MD [address] [place] [address] DR SAIMA Dominguez [facility] [address] [place] [address] Surgeon Orthopedic Surgery 02/24/20 Danelle Bishop MD [address] [facility] [place] [place] [address] Referring Physician Urology 02/24/20 documented as of this encounter
--- OUTSIDE RECORDS SUMMARY | 2025-02-19 12:51 | XMS_ITS | Clinical Summary ---
Author Organization [facility] Address [address] [place] [address] Phone Care Team Providers Care Business Insight And Analytics Manager Name Role Phone Tomas Reddy APRN, GEOFF Unavailable [phone] Regi Alcantar APRN, PERSONNEL WORKER Primary Care Provid er Allergies No known active allergies Medications spironolactone (ALDACTONE) 50 MG Tablet 0 Active lisinopril (PRINIVIL, ZESTRIL) 20 MG Tablet 0 Active HUMALOG KWIKPEN 100 UNIT/ML Solution Pen-injector 0 Active LANTUS SOLOSTAR 100 UNIT/ML Solution Pen-injector 0 Active glipiZIDE (GLUCOTROL) 10 MG Tablet 0 Active bumetanide (BUMEX) 1 MG Tablet 0 Active buPROPion (WELLBUTRIN) 300 MG TABLET SR 24 HR XL tablet 0 Active carvedilol (COREG) 25 MG Tablet 0 Active digoxin (LANOXIN) 250 MCG Tablet 0 Active FLUoxetine (PROZAC) 20 MG Capsule 40 mg. 0 Active atorvastatin (LIPITOR) 40 MG Tablet 0 Active VITAMIN D PO Take by mouth. Ac tive ferrous sulfate 325 (65 Fe) MG Tablet Take 325 mg by mouth daily. Active ascorbic acid (ASCORBIC ACID) 500 MG Tablet Take 500 mg by mouth daily. Active aspirin EC 81 MG Tablet Delayed Response Take 81 mg by mouth daily. Active esomeprazole (NexIUM) 40 MG CAPSULE DELAYED RELEASE 1 Active furosemide (LASIX) 40 MG Tablet 2 Active lamoTRIgine (LaMICtal) 25 MG Tablet 100 mg. 1 Active traZODone (DESYREL) 50 MG Tablet 1 Active Alcohol Swabs (Alcohol Prep) PadsIndications :Hypogonadism in male 1 Each by Does not apply route every 14 days. 6 Each 3 2 Active lamoTRIgine (LaMICtal) 100 MG Tablet 2 Active Armodafinil 200 MG Tablet TAKE 1 TABLET BY MOUTH EVERY DAY IN THE MORNING 2 Active insulin aspart (NovoLOG FlexPen) 100 UNIT/ML Solution Pen-injector Novolog FlexPen U-100 Insulin aspart 100 unit/mL (3 mL) subcutaneous INJECT 15 UNITS THREE TIMES PER DAY BEFORE MEALS Active ARIPiprazole (ABILIFY) 2 MG Tablet TAKE 1 TABLET BY MOUTH EVERY DAY - MUST SCHEDULE APPOINTMENT 3 Active metFORMIN (GLUCOPHAGE-XR) 500 MG TABLET SR 24 HR TAKE ONE TABLET BY MOUTH ONCE DAILY FOR 7 DAYS, THEN INCREASE TO ONE TABLET TWICE DAILY Active semaglutide,0.2 5 or 0.5MG/DOS, (OZEMPIC) 2 MG/3ML Solution Pen-injector 0.25 mg by Subcutaneous route. 4 Active zolpidem (AMBIEN) 5 MG Tablet Take 5 mg by mouth. 4 Active fluticasone (Flonase Allergy Relief) 50 MCG/ACT Suspension Slayden 1 spray every day by intranasal route. 0 Active insulin detemir (Levemir FlexPen) 100 UNIT/ML Solution Pen-injector 15 units daily at bedtime 9 Active ergocalciferol (VITAMIN D) 90851 UNIT Capsule TAKE ONE CAPSULE BY MOUTH ONE TIME PER WEEK Active cetirizine (ZyrTEC) 10 MG Tablet Take 1 tablet every day by oral route as needed. 0 Active SYRINGE-NEEDLE, DISP, 3 ML (BD Integra Syringe) 21G X 1-1/2 3 ML MiscIndications :Hypogonadism in male 1 Each by Does not apply route once a week. 12 Each 3 4 Active NEEDLE, DISP, 18 G (B-D BLUNT FILL NEEDLE) 18G X 1-1/2 MiscIndications :Hypogonadism in male 1 Each by Does not apply route once a week. 12 Each 3 4 Active testosterone cypionate (DEPO-TESTOSTER ONE) 200 MG/ML SolutionIndicat ions:Hypogonadi sm in male 0.5-0.75 mL by Intramuscular route once a week. Alternate 150 mg and 100 mg every other week 3 mL 3 5 Active Tadalafil 5 MG TabletIndicatio ns:Erectile dysfunction due to arterial insufficiency,H ypogonadism in male Take 1 Tablet by mouth as needed for Erectile Dysfunction (Take 5 mg daily. May take an additional 1-3 tabs (5-15 mg) as needed for ED. Do not exceed more than 20 mg in 24 hours). 90 Tablet 5 Active Active Problems Problem Noted Date Diagnosed Date Diabetes mellitus 04/02/2019 Overview (08/09/2021): Last Assessment & Plan: Due to anemia, cannot go by hgA1c. Will follow fbs and 2hrpp. No major symptoms. Continue meds for now. Will readdress. (needs podiatry referral). Sees opthamologist. Check microalbumin. Will need microfilament. Last FBS 12/2019 77 (in aug was 203?) Last hga1c was 8.5 (01/01/20) Last TSH was 0.85 (2015) Dyslipidemia 01/14/2016 Encounters Date Type Department Care Team Description 01/12/2025 Results Follow-Up [facility] [address] [place] [address] Tomas Reddy, MECHANICAL STRIPER, PERSONNEL WORKER HEMATOCRIT, PSA DIAGNOSTIC,TOTAL, TESTOSTERONE, ESTRADIOL 01/06/2025 10:00 AM CDT Office Visit [facility] [address] [place] [address] Tomas Reddy APRN, GEOFF Erectile dysfunction due to arterial insufficiency (Primary Dx); Hypogonadism in male; Encounter for monitoring testosterone replacement therapy Discharge Disposition: Discharged to home or Selfcare 01/06/2025 Travel from Last 3 Months Immunizations Immunization Administration Dates Next Due Pneumococcal Vaccine Adult - 23 Valent 7 TDAP Vaccine 08/27/2017 Social History Tobacco Use Types Packs/Day Years Used Date Smoking Tobacco: Former Smokeless Tobacco: Never Tobacco Cessation:Counseling Given: Not Answered Alcohol Use Standard Drinks/Week Comments Not Currently 0 (1 standard drink = 0.6 oz pur e alcohol) Sexually Active Control Partners Comments Yes Female Sex and Gender Information Value Date Recorded Sex Assigned at Not on file Legal Sex Male 2:10 PM CDT Gender Identity Not on file Sexual Orientation Not on file Last Filed Vital Signs Vital Sign Reading Time Taken Comments Blood Pressure 111/66 01/06/2025 9:49 AM CDT Pulse 98 01/06/2025 9:49 AM CDT Temperature 36.1 C (96.9 F) 02/20/2023 1:48 PM CDT Respiratory Rate 20 01/06/2025 9:49 AM CDT Oxygen Saturation 98% 01/06/2025 9:49 AM CDT Inhaled Oxygen Concentration - - Weight 126.2 kg (278 lb 3.2 oz) 01/06/2025 9:49 AM CDT Height 182.9 cm (6') 08/26/2024 1:[address] WORKER Body Mass Index 37.73 08/26/2024 1:[address] WORKER Plan of Treatment Upcoming Encounters Date Type Department Care Team (Late st Contact Info) Description 04/21/2025 10:15 AM CDT Office Visit [facility] [address] [place] [address] Tomas Reddy APRN, GEOFF [address] [place] [address] Health Maintenance Due Date Last Done Comments Diabetes: Eye Exam 1975 Diabetes: Foot Exam 1975 Hepatitis B Immunization (1 of 3 - 19+ 3-dose series) 11/23/1994 Cologuard 11/23/2020 Colonoscopy 11/23/2020 Colorectal Cancer Screening 11/23/2020 Immunochemical Fecal Occult Blood 11/23/2020 Diabetes: Nephropathy Screening 03/10/2021 03/10/2020 SARS-COV-2 Immunization ( season) 2024 12/23/2020 Influenza Immunization (#1) 2025 Diabetes: Hemoglobin A1c 04/18/2025 025, 06/18/2024, 02/20/2024, Additional history exists Td Immunization Every 10 Years (Adults With 1 Tdap) 08/27/2027 08/27/2017 Respiratory Syncytial Virus (RSV) Immunization (Adult) (1 - 1-dose 75+ series) 11/23/2050 DTaP/Tdap/Td Immunization Discontinued 08/27/2017 Hepatitis C Virus (HCV) Screening Completed 02/20/2024 Pneumococcal Immunization Combined Completed 10/16/2024, 07/23/2016 Human Papillomavirus (HPV) Immunization Aged Out No longer eligible based on patient's age to complete this topic Meningococcal Immunization (ACWY) Aged Out No longer eligible based on patient's age to complete this topic Rotavirus Immunization Aged Out No lo nger eligible based on patient's age to complete this topic Procedures Procedure Name Priority Date/Time Associated Diagnosis Comments ESTRADIOL Routine 01/06/2025 10:10 AM CDT Hypogonadism in male Encounter for monitoring testosterone replacement therapy TESTOSTERONE Routine 01/06/2025 10:10 AM CDT Hypogonadism in male Encounter for monitoring testosterone replacement therapy PSA DIAGNOSTIC,TOTAL Routine 01/06/2025 10:10 AM CDT Hypogonadism in male Encounter for monitoring testosterone replacement therapy HEMATOCRIT Routine 01/06/2025 10:10 AM CDT Hypogonadism in male Encounter for monitoring testosterone replacement therapy ESTRADIOL Routine 01/06/2025 10:10 AM CDT Hypogonadism in male Encounter for monitoring testosterone replacement therapy TESTOSTERONE Routine 01/06/2025 10:10 AM CDT Hypogonadism in male Encounter for monitoring testosterone replacement therapy CMP (COMPREHENSIVE METABOLIC PANEL) Routine 03/10/2020 9:26 AM CDT Hypogonadism in male from Last 3 Months or Most Recently Relevant to Health Maintenance Results * ESTRADIOL (01/06/2025 10:10 AM CDT) ESTRADIOL, SERUM 43 <=44 pg/mL 01/06/2025 9:43 PM CDT [facility] Blood Venipuncture / Unknown 01/06/2025 10:10 AM CDT 01/06/2025 11:03 AM CDT Narrative [facility] - 01/06/2025 9:43 PM CDT ESTRADIOL VALUE NORMAL MENSTRUATING FEMALE FOLLICULAR PHASE <24 - 251 pg/mL MID CYCLE PHASE 38 - 649 pg/mL LUTEAL PHASE <24 - 312 pg/mL POST MENOPAUSAL ON HRT <24 - 144 pg/mL POST MENOPAUSAL NOT ON HRT <24 - 28 pg/mL MALES <24 - 44 pg/mL Patients undergoing Fulvestrant therapy should not be tested by this method as it could produce falsely elevated estradiol results. Tomas Reddy APRN, PERSONNEL WORKER CHEMISTRY ORDERABLES F inal Result Performing Organization Address [facility]/ZIP Co de Phone Number [facility] [address] [place] [address], [place] * TESTOSTERONE (01/06/2025 10:10 AM CDT) TESTOSTERONE, TOTAL 604 240 - 871 ng/dL 01/06/2025 9:36 PM CDT [facility] Blood Venipuncture / Unknown 01/06/2025 10:10 AM CDT 01/06/2025 11:03 AM CDT Tomas Reddy MECHANICAL STRIPER, PERSONNEL WORKER CHEMISTRY ORDERABLES F inal Result [facility] [address] [place] [place] [address], * PSA DIAGNOSTIC,TOTAL (01/06/2025 10:10 AM CDT) PSA, TOTAL (PROSTATIC SPECIFIC ANTIGEN) 0.16 <4.00 ng/mL 01/06/2025 11:44 AM CDT [facility] Blood Venipuncture / Unknown 01/06/2025 10:10 AM CDT 01/06/2025 11:03 AM CDT Narrative [facility] - 01/06/2025 11:44 AM CDT PSA NOTE: The PSA value should be used in conjunction with information available from clinical evaluation and other diagnostic procedures. The [employer] Total PSA assay is a Chemiluminescent Microparticle Immunoassay (CMIA) for the quantitative determination of total PSA (both free PSA and PSA complexed to [id number]-ycsebygoggioimkx) in human serum. Total PSA values obtained with different assay methods, including Yoo PSA assays, cannot be used interchangeably. Tomas Reddy APRN, PERSONNEL WORKER CHEMISTRY ORDERABLES F inal Result Performing Organization Address City/[facility]/ZIP Co de Phone Number [facility] [address] [place] [address] * HEMATOCRIT (01/06/2025 10:10 AM CDT) Pathologist [facility] HEMATOCRIT (HCT) 44.2 38.0 - 50.0 % 01/06/2025 11:13 AM CDT [facility] Blood Venipuncture / Unknown 01/06/2025 10:10 AM CDT 01/06/2025 11:03 AM CDT Tomas Reddy APRN, PERSONNEL WORKER HEMATOLOGY ORDERABLES Final Result [facility] [address] [place] [address] * (ABNORMAL) CMP (COMPREHENSIVE METABOLIC PANEL) (03/10/2020 9:26 AM CDT) SODIUM 133(L) 136 - 144 mmol/L 03/10/2020 12:54 PM CDT [facility] POTASSIUM 5.3(H) 3.5 - 5.1 mmol/L 03/10/2020 12:54 PM CDT [facility] CHLORIDE 97(L) 100 - 110 mmol/L 03/10/2020 12:54 PM CDT [facility] CO2, VENOUS 26 22 - 32 mmol/L 03/10/2020 12:54 PM CDT [facility] ANION GAP 15.3 8.0 - 20.0 mmol/L 03/10/2020 12:54 PM CDT [facility] GLUCOSE 182(H) 70 - 99 mg/dL 03/10/2020 12:54 PM T [facility] BUN 28(H) 6 - 20 mg/dL 03/10/2020 12:54 PM T [facility] CREATININE, BLOOD 0.98 0.80 - 1.30 mg/dL 03/10/2020 12:54 PM [facility] BUN/CREATININE RATIO 29(H) 12 - 20 ratio 03/10/2020 12:54 PM [facility] TOTAL PROTEIN 7.6 6.0 - 8.3 g/dL 03/10/2020 12:54 PM [facility] ALBUMIN 4.6 3.5 - 5.2 g/dL 03/10/2020 12:54 PM [facility] Comment: The colormetric methods used for the determination of Albumin may lead to falsely elevated test results in patients suffering from renal failure or insufficiency due to interference with other proteins. A/G RATIO 1.5 1.0 - 2.0 03/10/2020 12:54 PM T [facility] CALCIUM 10.4(H) 8.9 - 10.3 mg/dL 03/10/2020 12:54 PM T [facility] T BILI 0.4 <=1.2 mg/dL 03/10/2020 12:54 PM T [facility] SGOT (AST) 19 <=40 U/L 03/10/2020 12:54 PM CDT [facility] SGPT (ALT) 44(H) <=41 U/L 03/10/2020 12:54 PM CDT [facility] ALKALINE PHOSPHATASE 119 40 - 130 U/L 03/10/2020 12:54 PM CDT [facility] GFR, EST. NONAFRICAN >60 >=60 03/10/2020 12:54 PM CDT [facility] GFR, EST. >60 >=60 020 12:54 PM CDT [facility] Comment: Creatinine Clearance is the preferred criteria for selecting drug dose adjustments in renally impaired patients. The GFR is provided as additional pertinent clinical information. GFR is reported in mL/min/1.73 sq m. Blood Venipuncture / Unknown 03/10/2020 9:26 AM CDT 03/10/2020 10:19 AM CDT Danelle Bishop MD CHEMISTRY ORDERABLES Final Result [facility] [address] [place] [address] from Last 3 Months or Most Recently Relevant to Health Maintenance Insurance [facility] Care Teams Business Insight And Analytics Manager Relationship Specialty Start Date End Date Regi Alcantar APRN, PERSONNEL WORKER [address] [place] [address] PCP - General Advanced Practice Nurse 03/19/24 Tomas Reddy APRN, PERSONNEL WORKER [address] [place] [address] Nurse Practitioner Advanced Practice Nurse 08/08/22
--- OUTSIDE RECORDS SUMMARY | 2025-02-19 12:51 | XMS_ITS | Encounter Summary ---
Author Organization [facility] Facility Care Team Providers Care Gas Stove Servicer Helper Name Role Phone Chelsie Nair MD Primary Care Provider [phone] Charles Medina MD Unavailable [phone] Ralf Eduardo MD Primary Care Provider [phone] Wilda Estes MD Unavailable [phone] Danelle Bishop MD Unavailable [phone] Nupur Eduardo MD Primary Care Provider [phone] Encounter Details Date Type Department Care Team (Latest Contact Info) Description 09/24/2015 Orders Only [facility] CLINCONV ProviderStanley MD [address] [place] [id number] Social History Tobacco Use Types Packs/Day Years Used Date Smoking Tobacco: Never Assessed Sex and Gender Information Value Date Recorded Sex Assigned at Not on file Legal Sex Male 6:21 PM LINE ANALYST Gender Identity Not on file Sexual Orientation [...] on filedocumented in this encounter Care Teams Gas Stove Servicer Helper Relationship Specialty Start Date End Date Chelsie Nair MD [address] [place] [address] DR SAIMA Dominguez [facility] [address] [place] [address] PCP - General Family Medicine 09/05/17 01/01/20 Ralf Eduardo MD [address] [place] [address] DR SAIMA Dominguez [address] [address] PCP - General Internal Medicine 02/24/20 Nupur Eduardo MD [address] [facility] [address] [place] [id number] PCP - General 01/02/20 02/23/20 Charles Medina MD [address] [place] [address] DR SAIMA Dominguez [facility] [address] [place] [address] Advanced Solutions Architect Interventional Cardiology 09/08/19 Wilda Estes MD [address] [place] [address] DR SAIMA Dominguez [facility] [address] [place] [address] Surgeon Orthopedic Surgery 02/24/20 Danelle Bishop MD [address] [facility] [place] [address] Referring Physician Urology 02/24/20 documented as of this encounter
--- OUTSIDE RECORDS SUMMARY | 2025-02-19 12:52 | XMS_ITS | Encounter Summary ---
Author Organization [facility] Facility Care Team Providers Care Wool Sampler Name Role Phone Chelsie Nair MD Primary Care Provider [phone] Charles Medina MD Unavailable + [phone] Ralf Eduardo MD Primary Care Provider + [phone] Wilda Estes MD Unavailable [phone] Danelle Bishop MD Unavailable [phone] Nupur Eduardo MD Primary Care Provider [phone] Encounter Details Date Type Department Care Team (Latest Contact Info) Description 04/13/2015 Orders Only [facility] CLINCONV ProviderStanley MD [address] [place] [address] Social History Tobacco Use Types Packs/Day Years Used Date Smoking Tobacco: Never Assessed Sex and Gender Information Value Date Recorded Sex Assigned at Not on file Legal Sex Male 6:21 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 Gender Identity Not on file Sexual Orientation [...] on filedocumented in this encounter Care Teams Wool Sampler Relationship Specialty Start Date End Date Chelsie Nair MD [address] [facility] [address] SAIMA Dominguez [address] [address] PCP - General Family Medicine 09/05/17 01/01/20 Ralf Eduardo MD [address] [place] [address] DR SAIMA Dominguez [address] [address] PCP - General Internal Medicine 02/24/20 Nupur Eduardo MD [address] [place] [address] [address] [place] [id number] PCP - General 01/02/20 02/23/20 Charles Medina MD [address] [place] [address] DR SAIMA Dominguez [address] [address] Data Typist Interventional Cardiology 09/08/19 Wilda Estes MD [address] [place] [address] DR SAIMA Dominguez [address] [address] Surgeon Orthopedic Surgery 02/24/20 Danelle Bishop MD [address] [place] [address] DR SAIMA Dominguez [address] [address] Referring Physician Urology 02/24/20 documented as of this encounter
--- OUTSIDE RECORDS SUMMARY | 2025-02-19 12:52 | XMS_ITS | Clinical Summary ---
Author Organization [facility] Address [address] [place] [id number] Care Team Providers Care Housing And Residence Life Director Name Role Phone Charles Medina MD Unavailable [phone] Ralf Eduardo MD Primary Care Provider Wilda Estes MD Unavailable [phone] Danelle Bishop MD Unavailable [phone] Allergies No known active allergies Medications testosterone cypionate (DEPO-TESTOTERONE) 200 mg/mL injection Inject 1 mL (200 mg total) into the muscle as instructed every 14 (fourteen) days 04/14/20 20 Active pen needle, diabetic 32 gauge x needleIndications: Type 2 diabetes mellitus without complication, with long-term current use of insulin (HCC) USE DIRECTED WITH HUMALOG PEN 100 each 2 07/30/19 21 Active aspirin 325 mg tablet Take 81 mg by mouth daily Active alcohol swabs pads, medicated 1 each by Not Applicable route every 2 (two) weeks 08/09/19 22 Active BD Luer-Silvia Syringe 3 mL 21 gauge x 1 1/2 syringe USE DIRECTED WITH TESTOSTERONE 11/11/19 22 Active insulin glargine (insulin glargine) 100 unit/mL (3 mL) pen for injectionIndicatio ns:type 2 diabetes mellitus Inject 20 Units under the skin nightly 18 mL 1 02/19/[address] (NexIUM) 40 mg capsuleIndications :Gastroesophageal reflux disease, unspecified whether esophagitis present Take 1 capsule (40 mg total) by mouth daily before breakfast 90 capsule 02/19/20 22 Active FLUoxetine (PROzac) 40 mg capsule 02/16/20 22 Active carvediloL (COREG) 25 mg tablet Take 1 tablet (25 mg total) by mouth 2 (two) times a day 180 tablet 3 11/08/19 23 Active ARIPiprazole (ABILIFY) 2 mg tablet TAKE 1 TABLET BY MOUTH EVERY DAY FOR 30 DAYS 10/20/19 23 Active ketoconazole (NIZORAL) 2 % cream APPLY ONCE DAILY DIRECTED 08/30/19 23 Active Auvelity 45-105 mg tablet, IR & ER, biphasic 01/13/20 23 Active HumaLOG 100 unit/mL pen for injectionIndicatio ns:Type 2 diabetes mellitus without complication, with long-term current use of insulin (HCC) Inject 20 units three time daily with meals 45 mL 09/18/19 24 Active eszopiclone (LUNESTA) 3 mg tablet TAKE 1 TABLET BY MOUTH AT BEDTIME NEEDED FOR 30 DAYS 08/09/19 24 Active digoxin (LANOXIN) 250 mcg (0.25 mg) tablet Take 1 tablet (250 mcg total) by mouth daily 90 tablet 3 10/10/19 24 Active furosemide (LASIX) 40 mg tabletIndications: Essential hypertension Take 1 tablet by mouth once daily 90 tablet 3 04/21/20 24 Active atorvastatin (LIPITOR) 40 mg tablet TAKE ONE TABLET BY MOUTH IN THE MORNING 90 tablet 1 05/16/20 24 Active spironolactone (ALDACTONE) 50 mg tablet Take 1 tablet by mouth once daily 90 tablet 06/26/20 24 Active lisinopriL (PRINIVIL,ZESTRIL) 20 mg tabletIndications: Essential hypertension,RBBB, NAYA on CPAP,High risk medication use,Diabetes mellitus type II, non insulin dependent (HCC),NAYA (obstructive sleep apnea),Nonischemic cardiomyopathy (HCC),Leg edema,History of deep venous thrombosis (DVT) of distal vein of left lower extremity Take 1 tablet by mouth once daily 90 tablet 07/24/19 25 Active Active Problems Problem Noted Date Diagnosed Date Type 2 diabetes mellitus wit h hyperglycemia, with long-term current use of insulin 10/08/2023 Class 3 severe obesity due t o excess calories with serious comorbidity and body mass index (BMI) of 40.0 to 44.9 in adult 11/15/2022 1.2 History of COPD (pt verbal) 02/24/2020 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 The major acute manifestations of sickle cell disease (SCD) are related to infection, anemia(hemolytic or iron deficient), and vaso-occlusion (stroke/VTE). Also priapism, acute chest syndrome and renal infarction. Chronic manifesations of SCD include Pain,Anemia,neurologic,pulmonary conditions including nocturnal hypoxemia/asthma/pulm HTN, renal Impairment, HTN,Cardiomyopathy w/ DD,dysrythmias, Osteoporosis, and Erectile Dysfunction. Patient has anemia which can be multifactorial in his case with h/o GI bleed?. Interesting anat thas family history of some type of anemia and has multiple conditions which would fit SCD. (has iron deficiency, cardiomyopathy, afib,DVT, erectile dysfunction, possible asthma/copd ,osteoporotic like fractures-pt has multiple fx from just falling in light of being significantly vit d deficient) Would have expected secondary polycythemia due to NAYA..... Trial of iron+vit C every other day. Make sure away from other meds. (instructed) 2. Palpable thyroid 02/24/2020 Persistent cough 06/03/2019 1.2 NAYA (obstructive sleep apnea) 10/02/2017 Assessment & Plan (03/03/2021 8:42 AM CDT): The patient continues to benefit from CPAP therapy. He has a home unit that is set at 12 cm water pressure and a traveling CPAP unit that is on an auto titrating range of 14-20 cm water. His DME is [facility] in [facility]. He will follow up here annually. Assessment & Plan (02/24/2020 12:41 PM CDT): Work /up and r/o sickle cell disease (multiple conditions would fit). Referral to pulmonary/sleep. Used to see Dr. Darnell in past 1. Atrial fibrillation 08/30/2017 1. CHF 08/30/2017 1. HTN 08/30/2017 1. h/o DVT 08/30/2017 Assessment & Plan (02/24/2020 12:41 PM CDT): Not completely sure what caused. 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 Work /up and r/o sickle cell disease (multiple conditions would fit) Major depressive disorder wi th single episode, in full remission 08/30/2017 1. Non-ischemic cardiomyopathy 07/27/2016 Assessment & Plan (02/24/2020 12:40 PM CDT): Work /up and r/o sickle cell disease (multiple conditions would fit) Nonobstructive atherosclerosis of coronary arter y 01/14/2016 1. Dyslipidemia 01/14/2016 5. GERD 01/14/2016 Assessment & Plan (02/24/2020 12:44 PM CDT): With suspected sickle cell, (see other notes), check for h pylori (infections more prominent in SCD) Irritable bowel syndrome 01/14/2016 8. Vitamin D deficiency 01/14/2016 Assessment & Plan (02/24/2020 12:49 PM CDT): Continue 10,000 daily. Recheck levels. (started at <5). May need DEXA scan with multiple fractures from simple falls. Resolved Problems Problem Noted Date Diagnosed Date Resolved Date Body mass index 40.0-44.9, adult (CMS/[facility]) 11/15/2022 10/08/2023 8. Elevated CK 02/24/2020 10/08/2023 Assessment & Plan (02/24/2020 12:45 PM CDT): Most likely from rhabdo since at that time was just starting rehav. Recheck to make sure it has come down. 5.RUQ tenderness/fatty stool 02/24/2020 10/08/2023 Assessment & Plan (02/24/2020 12:44 PM CDT): Check RUQ US for anatomy. May or may not need functional assessment (HIDA) . For now GGT Fatty stool 02/24/2020 10/08/2023 Dermatitis fungal 02/24/2020 10/08/2023 Overview (02/24/2020): continue antifungal cream for now 8. Status post open reductio n and internal fixation (ORIF) of syndesmosis 08/29/2019 Overview (08/29/2019): Added automatically from request for surgery [id number] 8. h/o right ankle fx from s imple fall down stairs 05/11/2019 10/08/2023 Assessment & Plan (02/24/2020 12:46 PM CDT): anklel and nose fractures from simple falls. Suspect osteoporotic? Paolo with longterm vit D deficiency and low Testosterone. Another possiblity is SCD (see other notes). Recheck vit D and replace. Will readdress need for DEXA at another visit. 2. DM2 04/02/2019 10/08/2023 Assessment & Plan (02/24/2020 12:55 PM CDT): Due to anemia, cannot go by hgA1c. Will follow fbs and 2hrpp. No major symptoms. Continue meds for now. Will readdress. (needs podiatry referral). Sees opthamologist. Check microalbumin. Will need microfilament. Last FBS 12/2019 77 (in aug was 203?) Last hga1c was 8.5 (01/01/20) Last TSH was 0.85 (2016) Dependence on other enabling machines and devices 12/20/2017 10/08/2023 8. Onychomycosis of toenail 10/19/2017 10/08/2023 Assessment & Plan (02/24/2020 12:48 PM CDT): Has diabetes. Will need to refer to podiatry and readdress. Also has fungal infection of skin of right arm/left hip. Question arises if another contributing condition to lower immunity.. SCD? 2. Obesity 10/02/2017 10/08/2023 1.2 Hypersomnia with sleep apnea 10/02/2017 10/08/2023 8. Eczema 08/30/2017 10/08/2023 Acute thromboembolism of jerry p veins of lower extremity 01/14/2016 02/24/2020 Other symptoms involving car diovascular system 01/14/2016 10/08/2023 Immunizations Immunization Administration Dates Next Due Influenza, Unspecified 06/13/2023(Deferr ed: Patient Refused),05/05/2022(Deferred: Patient Refused) Pneumococcal Polysaccharide PPV23 07/23/2016 Tdap 08/27/2017 Surgical History Surgery Date Site/Laterality Comments ARTHROSCOPIC REPAIR ACL 07/23/1999 - 07/22/2000 Left ANKLE SURGERY 2000? Right COLONOSCOPY Medical History Medical History Date Comments Headache Headache, tension-type Hypertension Diabetes mellitus (HCC) High cholesterol Anxiety Atrial fibrillation (HCC) CHF (congestive heart failure) (HCC) Deep vein thrombosis (HCC) Depression GERD (gastroesophageal reflux disease) Gastric reflux Inflammatory bowel disease Obesity Pneumonia Sleep apnea use cpap Acute thromboembolism of deep veins of lower ext remity (HCC) 01/14/2016 Anemia Family History Medical History Relation Name Comments Alcohol abuse Father Javad Diabetes Father Javad Hypertension Father Javad Migraines Father Javad Hypertension Maternal Grandfather Francisco Diabetes Mother Fabiola Hypertension Mother Fabiola Migraines Mother Fabiola Anesthesia problems Neg Hx Relation Name Status Comments Father Javad Maternal Grandfather Francisco Mother Fabiola Social History Tobacco Use Types Packs/Day Years Used Date Smoking Tobacco: Former Cigarettes Q uit: 03/23/2014 Cigarillos Smokeless Tobacco: Never Tobacco Cessation:Counseling Given: Not Answered Alcohol Use Standard Drinks/Week Comments Not Currently 0 (1 standard drink = 0.6 oz pur e alcohol) Once a month AUDIT-C Answer Date Recorded Frequency of Alcohol Consumption Monthly or less 09/12/2019 Average Number of Drinks Not on file 020 Frequency of Binge Drinking Not on file 08/24 PHQ-2 Answer Date Recorded PHQ-2 Total Score (If total score is 3 or more points, staff should administer the PHQ-9) 5 10/08/2023 PHQ-9 Answer Date Recorded PHQ-9 Total Score 14 10/08/2023 Sex and Gender Information Value Date Recorded Sex Assigned at Not on file Legal Sex Male 6:21 PM [employer] Gender Identity Not on file Sexual Orientation Not on file Obstetrics History Last Filed Vital Signs Vital Sign Reading Time Taken Comments Blood Pressure 120/76 10/08/2023 10:48 AM CDT Pulse 95 10/08/2023 10:48 AM CDT Temperature 36.4 C (97.6 F) 10/08/2023 10:48 AM CDT Respiratory Rate 18 01/15/2023 10:31 AM CDT Oxygen Saturation 99% 10/08/2023 10:48 AM CDT Inhaled Oxygen Concentration - - Weight 139.7 kg (308 lb) 10/08/2023 10:48 AM CDT Height 180.3 cm (5' 11) 10/08/2023 10:48 AM CDT Body Mass Index 42.96 10/08/2023 10:48 AM CDT Plan of Treatment Health Maintenance Due Date Last Done Comments Colon Cancer Screening-Colonoscopy 1975 Hepatitis C Screening 1975 Dilated Eye Exam 1975 Hepatitis B Screening 11/23/1993 Pneumococcal vaccine <65 (2 of 2 - PCV) 07/23/2017 07/23/2016 Foot Exam 03/08/2023 03/08/2022 Albumin Creatinine Ratio, Urine 03/14/2023 Lipid Panel 03/14/2023 03/14/2022, 11/21, 04/08/2016, Additional history exists eGFR 03/14/2023 03/14/2022, 02/26/2020 Hemoglobin A1C 07/17/2023 01/15/2023, 02/21, 01/01/2020, Additional history exists Prostate Cancer Screening-PSA 03/14/2024 03/14/2022 Covid-19 Vaccine (2 - 2023-2 5 season) 2024 12/23/2020 Depression Screening 10/07/2024 10/08/2023, 10/08/2023, 03/08/2022, Additional history exists Regular Well Visit/Exam 18-64 10/07/2024 10/08/2023, 03/08/2022 Influenza Vaccine (#1) 2025 DTaP/Tdap/Td Vaccine (2 - Td or Tdap) 08/27/2027 08/27/2017 Medical Devices Implanted Type Area Coke Oven Patcher Device Identifier Shelf Expiration Date Model / Serial / Lot Synthes 241.351 Lcp 12mm [id number] .7mm 5 Hole Collar 1/3 Tubular Plate Bone - [id number] Implanted:Qty: 1 on 09/19/2019 by Wilda Estes MD at [facility] Plate Right: Foot Synthes I 241.351 / / Synthes 204.814 3.5mm 6mm 14mm 2.5mm Self Tap Small Hexagonal Socket Low Profile - [id number] Implanted:Qty: 1 on 09/19/2019 by Wilda Estes MD at [facility] Screw Right: Foot Synthes I 204.814 / / Synthes 206.050 4mm 6mm 50mm Small Hexagonal Socket Cancellous Full Thread Screw - [id number] Implanted:Qty: 1 on 09/19/2019 by Wilda Estes MD at [facility] Screw Right: Foot Synthes I 206.050 / / Synthes 206.055 4mm 6mm 55mm Small Hexagonal Socket Cancellous Full Thread Screw - [id number] Implanted:Qty: 1 on 09/19/2019 by Wilda Estes MD at [facility] Advanced Medicine Screw Right: Foot Synthes I 206.055 / / Synthes 206.055 4mm 6mm 55mm Small Hexagonal Socket Cancellous Full Thread Screw - [id number] Implanted:Qty: 1 on 09/19/2019 by Wilda Estes MD at [facility] Screw Right: Foot Synthes I 206.055 / / [employer] [id number] Corkscrew Fiberwire 3.5mm 12mm Self Tap Eyelet Handle Branch Service Associate - [id number] Implanted:Qty: 1 on 09/19/2019 by Wilda Estes MD at [facility] Medicine Right: Foot [employer] 10/21/2023 AR-[id number] / / [id number] [employer] Ar-[id number] Corkscrew Fiberwire 3.5mm 12mm Self Tap Eyelet Handle Branch Service Associate - [id number] Implanted:Qty: 1 on 09/19/2019 by Wilda Estes MD at [facility] Medicine Right: Foot [employer] 03/22/2022 AR-[id number] / / [id number] [employer] Ar-[id number] Corkscrew Fiberwire 3.5mm 12mm Self Tap Eyelet Handle Branch Service Associate - [id number] Implanted:Qty: 1 on 09/19/2019 by Wilda Estes MD at [facility] Advanced Medicine Right: Foot [employer] 10/21/2023 [id number] / / [id number] Procedures Procedure Name Priority Date/Time Associated Diagnosis Comments POCT HEMOGLOBIN A1C Routine 01/15/2023 1 0:51 AM CDT Type 2 diabetes mellitus without complication, with long-term current use of insulin (HCC) COMPREHENSIVE METABOLIC PANEL Routine 03/14/2022 10:23 AM CDT Atrial fibrillation, unspecified type (HCC) Congestive heart failure, unspecified HF chronicity, unspecified heart failure type (HCC) Atherosclerosis of coronary artery, unspecified vessel or lesion type, unspecified whether angina present, unspecified whether [place] or transplanted heart 1. HTN Type 2 diabetes mellitus without complication, with long-term current use of insulin (HCC) 8. Vitamin D deficiency Gastroesophageal reflux disease, unspecified whether esophagitis present 5.RUQ tenderness/fatty stool Anemia due to mild hemoglobinopathy or testosterone deficiency LIPID PANEL Routine 03/14/2022 10:23 AM CDT Atrial fibrillation, unspecified type (HCC) Congestive heart failure, unspecified HF chronicity, unspecified heart failure type (HCC) Atherosclerosis of coronary artery, unspecified vessel or lesion type, unspecified whether angina present, unspecified whether [place] or transplanted heart 1. HTN Type 2 diabetes mellitus without complication, with long-term current use of insulin (HCC) 8. Vitamin D deficiency Gastroesophageal reflux disease, unspecified whether esophagitis present 5.RUQ tenderness/fatty stool Anemia due to mild hemoglobinopathy or testosterone deficiency ALBUMIN CREATININE RATIO, URINE Routine 03/14/2022 10:23 AM CDT Atrial fibrillation, unspecified type (HCC) Congestive heart failure, unspecified HF chronicity, unspecified heart failure type (HCC) Atherosclerosis of coronary artery, unspecified vessel or lesion type, unspecified whether angina present, unspecified whether [place] or transplanted heart 1. HTN Type 2 diabetes mellitus without complication, with long-term current use of insulin (HCC) 8. Vitamin D deficiency Gastroesophageal reflux disease, unspecified whether esophagitis present 5.RUQ tenderness/fatty stool Anemia due to mild hemoglobinopathy or testosterone deficiency PSA SCREEN Routine 03/14/2022 10:23 AM CDT Atrial fibrillation, unspecified type (HCC) Congestive heart failure, unspecified HF chronicity, unspecified heart failure type (HCC) Atherosclerosis of coronary artery, unspecified vessel or lesion type, unspecified whether angina present, unspecified whether [place] or transplanted heart 1. HTN Type 2 diabetes mellitus without complication, with long-term current use of insulin (HCC) 8. Vitamin D deficiency Gastroesophageal reflux disease, unspecified whether esophagitis present 5.RUQ tenderness/fatty stool Anemia due to mild hemoglobinopathy or testosterone deficiency from Last 3 Months or Most Recently Relevant to Health Maintenance Results * POCT hemoglobin A1c (01/15/2023 10:51 AM CDT) Hemoglobin A1C, POC 13.6 % Capillary blood 01/15/2023 1 0:51 AM CDT Ralf Eduardo MD POINT OF CARE TEST ORDERABLE S Final Result * PSA screen (03/14/2022 10:23 AM CDT) PSA 0.05 < OR = 4.00 ng/mL [facility] Comment: The total PSA value from this assay system is standardized against the WHO standard. The test result will be approximately 20% lower when compared to the equimolar-standardized total PSA (Chrissy Elzbieta). Comparison of serial PSA results should be interpreted with this fact in mind. This test was performed using the Siemens chemiluminescent method. Values obtained from different assay methods cannot be used interchangeably. PSA levels, regardless of value, should not be interpreted as absolute evidence of the presence or absence of disease. Blood specimen (specimen) 03/14/2022 10:23 AM CDT 03/14/2022 10:26 AM CDT Ralf Eduardo MD LAB BLOOD ORDERABLES Final R [facility] Performing Organization Address [facility] de Phone Number [facility] [address] [place] [address] * (ABNORMAL) Albumin Creatinine Ratio, Urine (03/14/2022 10:23 AM CDT) Creatinine, ur 120 20 - 320 mg/dL [facility] Microalbumin, ur 5.6 See Note: mg/dL [facility] Comment: Reference Range: Reference Range Not established Microalbumin/creat ratio 47(H) <30 mcg/mg creat [facility] Comment: The ADA defines abnormalities in albumin excretion as follows: Albuminuria Category Result (mcg/mg creatinine) Normal to Mildly increased <30 Moderately increased 30-299 Severely increased > OR = 300 The ADA recommends that at least two of three specimens collected within a 3-6 month period be abnormal before considering a patient to be within a diagnostic category. Urine 03/14/2022 10:2 3 AM CDT 03/14/2022 10:26 AM CDT Ralf Eduardo MD LAB URINE ORDERABLES Final R esult Performing Organization Address [facility] de Phone Number [facility] [address] [place] [address] * (ABNORMAL) Lipid panel (03/14/2022 10:23 AM CDT) Cholesterol 191 <200 mg/dL [facility] HDL 52 > OR = 40 mg/dL [facility] Triglycerides 145 <150 mg/dL [facility] LDL 113(H) mg/dL (calc) [facility] Comment: Reference range: <100 Desirable range <100 mg/dL for primary prevention; <70 mg/dL for patients with CHD or diabetic patients with > or = 2 CHD risk factors. LDL-C is now calculated using the Chepe calculation, which is a validated novel method providing better accuracy than the Friedewald equation in the estimation of LDL-C. Jose Luis ALVAREZ et al. TEDDY. 2013;310(19): 9057-6803 (http://education.Tok3n/faq/YOR553) Chol/HDL ratio 3.7 <5.0 (calc) [facility] Non-HDL, (LDL+VLDL) 139(H) <130 mg/dL (calc) [facility] Comment: For patients with diabetes plus 1 major ASCVD risk factor, treating to a non-HDL-C goal of <100 mg/dL (LDL-C of <70 mg/dL) is considered a therapeutic option. Blood specimen (specimen) 03/14/2022 10:23 AM CDT 03/14/2022 10:26 AM CDT us Ralf Eduardo MD LAB BLOOD ORDERABLES Final R esult [facility] [address] [place] [address] * (ABNORMAL) Comprehensive metabolic panel (03/14/2022 10:23 AM CDT) Glucose 276(H) 65 - 99 mg/dL [facility] Comment: Fasting reference interval For someone without known diabetes, a glucose value >125 mg/dL indicates that they may have diabetes and this should be confirmed with a follow-up test. BUN 25 7 - 25 mg/dL [facility] Creatinine 1.06 0.60 - 1.29 mg/dL [facility] eGFR 88 > OR = 60 mL/min/1. 73m2 [facility] Comment: The eGFR is based on the CKD-EPI 2020 equation. To calculate the new eGFR from a previous Creatinine or Cystatin C result, go to https://www.kidney.org/professionals/ kdoqi/gfr%5Fcalculator BUN/creat ratio NOT APPLICABLE 6 - 22 (calc) [facility] Sodium 133(L) 135 - 146 mmol/L [facility] Potassium, pl 4.8 3.5 - 5.3 mmol/L [facility] Chloride 99 98 - 110 mmol/L [facility] CO2 26 20 - 32 mmol/L [facility] Calcium 9.9 8.6 - 10.3 mg/dL [facility] Protein, sr 7.3 6.1 - 8.1 g/dL [facility] Albumin 4.4 3.6 - 5.1 g/dL [facility] GLOBULIN 2.9 1.9 - 3.7 g/dL (calc) [facility] Alb/glob ratio 1.5 1.0 - 2.5 (calc) [facility] Bilirubin, total 0.9 0.2 - 1.2 mg/dL [facility] Alk phos 78 36 - 130 U/L [facility] AST 18 10 - 40 U/L [facility] ALT (SGPT) 29 9 - 46 U/L [facility] Blood specimen (specimen) 03/14/2022 10:23 AM CDT 03/14/2022 10:26 AM CDT us Ralf Eduardo MD LAB BLOOD ORDERABLES Final R esult [facility] [address] [phone] from Last 3 Months or Most Recently Relevant to Health Maintenance Insurance [facility] ACCESS CHOICE MEDICARE [facility] [facility] CHOICE OOS Member Subscriber Plan / Payer (Ef fective 2022-Present) Name:Cade Gonzalez Member ID:[id number] Relation to Subscriber:Self Name:Cade Gonzalez Subscriber ID:[id number] Payer ID:[id number] (NAIC) Type:[employer] Address: [address] ACCESS CHOICE Care Teams Housing And Residence Life Director Relationship Specialty Start Date End Date Ralf Eduardo MD PCP - General Internal Medicine 02/24/20 Charles Medina MD Supervisor [employer] Interventional Cardiology 09/08/19 Wilda Estes MD Surgeon Orthopedic Surgery 02/24/20 Danelle Bishop MD Referring Physician Urology 02/24/20
--- OUTSIDE RECORDS SUMMARY | 2025-02-19 12:52 | XMS_ITS | Referral Summary ---
Author Organization [facility] Medical Office Building B Address [address] [place] [address] Care Team Providers Care Medical Management Specialist Name Role Phone Charles Medina MD Unavailable [phone] Ralf Eduardo MD Primary Care Provider [phone] Wilda Estes MD Unavailable [phone] Danelle Bishop MD Unavailable [phone] Allergies No known active allergies Medications testosterone [...] water. His DME is [facility] in [facility]. He will follow up here annually. [...] caused. 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 Work /up and r/o sickle [...] Resolved Date Body mass index 40.0-44.9, adult (CMS/[facility]) 11/15/2022 10/08/2023 8. Elevated CK 02/24/2020 [...] (08/29/2019): Added automatically from request for surgery [id number] 8. h/o right ankle fx from s imple fall down stairs 05/11/2019 10/08/2023 Assessment & Plan (02/24/2020 12:46 PM CDT): anklel and nose fractures from simple falls. Suspect osteoporotic? Paolo with half-way vit D deficiency and low Testosterone. 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 Gender Identity Not on file Sexual Orientation [...] 10/08/2023 10:48 AM CDT Plan of Treatment Not on file Medical Devices Implanted Type Area Enterprise Systems Architect Device Identifier Shelf Expiration Date Model / Serial / Lot Synthes 241.351 Lcp 12mm [id number] .7mm 5 Hole Collar 1/3 Tubular Plate Bone - [id number] Implanted:Qty: 1 on 09/19/2019 by Wilda Estes MD at [facility] Plate Right: Foot Synthes I 241.351 / / Synthes 204.814 3.5mm 6mm 14mm 2.5mm Self Tap Small Hexagonal Socket Low Profile - [id number] Implanted:Qty: 1 on 09/19/2019 by Wilda Estes MD at [facility] Screw Right: Foot Synthes I 204.814 / / Synthes 206.050 4mm 6mm 50mm Small Hexagonal Socket Cancellous Full Thread Screw - [id number] Implanted:Qty: 1 on 09/19/2019 by Wilda Estes MD at [facility] Screw Right: Foot Synthes I 206.050 / / Synthes 206.055 4mm 6mm 55mm Small Hexagonal Socket Cancellous Full Thread Screw - [id number] Implanted:Qty: 1 on 09/19/2019 by Wilda Estes MD at [facility] Screw Right: Foot Synthes I 206.055 / / Synthes 206.055 4mm 6mm 55mm Small Hexagonal Socket Cancellous Full Thread Screw - [id number] Implanted:Qty: 1 on 09/19/2019 by Wilda Estes MD at [facility] Screw Right: Foot Synthes I 206.055 / / [employer] Ar-1915sf Corkscrew Fiberwire 3.5mm 12mm Self Tap Eyelet Handle Negative Turner - [id number] Implanted:Qty: 1 on 09/19/2019 by Wilda Estes MD at [facility] Right: Foot [employer] 10/21/2023 AR-1915SF / / [id number] [employer] Ar-1915sf Corkscrew Fiberwire 3.5mm 12mm Self Tap Eyelet Handle Negative Turner - [id number] Implanted:Qty: 1 on 09/19/2019 by Wilda Estes MD at [facility] Right: Foot [employer] 03/22/2022 AR-1915SF / / [id number] [employer] Ar-1915sf Corkscrew Fiberwire 3.5mm 12mm Self Tap Eyelet Handle Negative Turner - [id number] Implanted:Qty: 1 on 09/19/2019 by Wilda Estes MD at [facility] Right: Foot [employer] 10/21/2023 AR-1915SF / / [id number] Procedures Procedure Name Priority Date/Time Associated Diagnosis Comments POCT HEMOGLOBIN A1C Routine 01/15/2023 1 0:51 AM CDT Type 2 diabetes mellitus without complication, with long-term current use of insulin ([facility]) COMPREHENSIVE METABOLIC PANEL Routine 03/14/2022 10:23 AM CDT Atrial fibrillation, unspecified type (HCC) Congestive heart failure, unspecified HF chronicity, unspecified heart failure type (HCC) Atherosclerosis of coronary artery, unspecified vessel or lesion type, unspecified whether angina present, unspecified whether [place] or transplanted heart 1. HTN Type 2 [...] type, unspecified whether angina present, unspecified whether [place] or transplanted heart 1. HTN Type 2 [...] type, unspecified whether angina present, unspecified whether [place] or transplanted heart 1. HTN Type 2 [...] type, unspecified whether angina present, unspecified whether [place] or transplanted heart 1. HTN Type 2 [...] MD LAB BLOOD ORDERABLES Final R esult Performing Organization Address [facility] de Phone Number [facility] [address] [place] [address] * (ABNORMAL) Albumin Creatinine Ratio, Urine (03/14/2022 [...] ORDERABLES Final R esult Performing Organization Address [facility] Co de Phone Number [facility] [address] [place] [address] * (ABNORMAL) Lipid panel (03/14/2022 10:23 AM [...] Jose Luis ALVAREZ et al. TEDDY. 2013;310(19): 7814-5945 (http://education.Voxel (Internap)/faq/WTS955) Chol/HDL ratio 3.7 <5.0 (calc) [facility] Non-HDL, (LDL+VLDL) 139(H) <130 mg/dL (calc) [facility] Comment: For patients with diabetes plus 1 major ASCVD risk factor, treating to a non-HDL-C goal of <100 mg/dL (LDL-C of <70 mg/dL) is considered a therapeutic option. Blood specimen (specimen) 03/14/2022 10:23 AM CDT 03/14/2022 10:26 AM CDT us Ralf Eduardo MD LAB BLOOD ORDERABLES Final R esult [facility] [address] [place] [address] * (ABNORMAL) Comprehensive metabolic panel (03/14/2022 10:23 AM CDT) Glucose 276(H) 65 - 99 mg/dL [facility] Comment: Fasting reference interval For someone without known diabetes, a glucose value >125 mg/dL indicates that they may have diabetes and this should be confirmed with a follow-up test. BUN 25 7 - 25 mg/dL [facility] Creatinine 1.06 0.60 - 1.29 mg/dL [facility] eGFR 88 > OR = 60 mL/min/1. 73m2 [facility] Comment: The eGFR is based on the CKD-EPI 2020 equation. To calculate the new eGFR from a previous Creatinine or Cystatin C result, go to https://www.kidney.org/professionals/ kdoqi/gfr%5Fcalculator BUN/creat ratio NOT APPLICABLE 6 - 22 (calc) [facility] Sodium 133(L) 135 - 146 mmol/L [facility] Potassium, pl 4.8 3.5 - 5.3 mmol/L [facility] Chloride 99 98 - 110 mmol/L [facility] CO2 26 20 - 32 mmol/L [facility] Calcium 9.9 8.6 - 10.3 mg/dL [facility] Protein, sr 7.3 6.1 - 8.1 g/dL [facility] Albumin 4.4 3.6 - 5.1 g/dL [facility] GLOBULIN 2.9 1.9 - 3.7 g/dL (calc) [facility] Alb/glob ratio 1.5 1.0 - 2.5 (calc) [facility] Bilirubin, total 0.9 0.2 - 1.2 mg/dL [facility] Alk phos 78 36 - 130 U/L [facility] AST 18 10 - 40 U/L [facility] ALT (SGPT) 29 9 - 46 U/L [facility] Blood specimen (specimen) 03/14/2022 10:23 AM CDT 03/14/2022 10:26 AM CDT Ralf Eduardo MD LAB BLOOD ORDERABLES Final R esult [facility] [address] [place] [address] from Last 3 Months or Most Recently Relevant to Health Maintenance Insurance [facility] ACCESS CHOICE MEDICARE [facility] [facility] CHOICE OOS Member Subscriber Plan / Payer (Ef fective 2022-Present) Name:Cade Gonzalez Member ID:[id number] Relation to Subscriber:Self Name:Cade Gonzalez Subscriber ID:[id number] Payer ID:[id number] (NAIC) Type:[employer] Address: [address] ACCESS CHOICE Care Teams Medical Management Specialist Relationship Specialty Start Date End Date Ralf Eduardo MD PCP - General Internal Medicine 02/24/20 Charles Medina MD Security Operations Manager Interventional Cardiology 09/08/19 Wilda Estes MD Surgeon Orthopedic Surgery 02/24/20 Danelle Bishop MD Referring Physician Urology 02/24/20
--- OUTSIDE RECORDS SUMMARY | 2025-02-19 14:31 | XMS_ITS | Encounter Summary ---
Author Organization [facility] Address [facility] [place] [address] Care Team Providers Care Formal Waiter/Waitress Name Role Phone Regi Alcantar NP Primary Care Provider [phone] Encounter Details Date Type Department Care Team (Late st Contact Info) Description 02/29/2024 MyChart Message Enc [facility] - [place] [address] [place] [address] Regi Alcantar NP [address] [place], [place] [id number] Rolando Social History Tobacco Use Types Packs/Day [...] CDT Travel History Travel Start Travel End [place] 02/12/2025 02/13/2025 [place] 02/10/2025 02/10/2025 [place] [...] st Contact Info) Description 05/27/2025 8:00 AM DRAGLINE OPERATOR Office Visit [facility] [place] [address] [place], [place] [id number] Regi Alcantar NP [address] [place] [address] documented as of this encounter Visit Diagnoses Not on filedocumented in this encounter Care Teams Formal Waiter/Waitress Relationship Specialty Start Date End Date Regi Alcantar NP [address] [place], [place] [address] PCP - General NURSE PRACTITIONER 02/08/24 documented as of this encounter
--- OUTSIDE RECORDS SUMMARY | 2025-02-19 14:32 | XMS_ITS | Encounter Summary ---
Author Organization [facility] Facility Care Team Providers Care Belly Packer Name Role Phone Chelsie Nair MD Primary Care Provider [phone] Charles Medina MD Unavailable [phone] Ralf Eduardo MD Primary Care Provider [phone] Wilda Estes MD Unavailable [phone] Danelle Bishop MD Unavailable [phone] Nupur Eduardo MD Primary Care Provider [phone] Encounter Details Date Type Department Care Team (Latest Contact Info) Description 10/08/2015 Orders Only [facility] CLINCONV ProviderStanley MD [address] [place] [address] Social History Tobacco Use Types Packs/Day Years Used Date Smoking Tobacco: Never Assessed Sex and Gender Information Value Date Recorded Sex Assigned at Not on file 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 Gender Identity Not on file Sexual Orientation [...] on filedocumented in this encounter Care Teams Belly Packer Relationship Specialty Start Date End Date Chelsie Nair MD [address] [place] [address] DR SAIMA Dominguez [facility] [address] [place] [address] PCP - General Family Medicine 09/05/17 01/01/20 Ralf Eduardo MD [address] [place] [address] DR SAIMA Dominguez [address] [address] PCP - General Internal Medicine 02/24/20 Nupur Eduardo MD [address] [facility] [address] [place] [id number] PCP - General 01/02/20 02/23/20 Charles Medina MD [address] [place] [address] DR SAIMA Dominguez [facility] [address] [place] [address] Security Assessor Interventional Cardiology 09/08/19 Wilda Estes MD [address] [place] [address] DR SAIMA Dominguez [facility] [address] [place] [address] Surgeon Orthopedic Surgery 02/24/20 Danelle Bishop MD [address] [facility] [place] [address] Referring Physician Urology 02/24/20 documented as of this encounter
--- OUTSIDE RECORDS SUMMARY | 2025-02-19 14:32 | XMS_ITS | Encounter Summary ---
Author Organization [facility] Facility Care Team Providers Care Rn Triage Name Role Phone Chelsie Nair MD Primary Care Provider [phone] Charles Medina MD Unavailable [phone] Ralf Eduardo MD Primary Care Provider [phone] Wilda Estes MD Unavailable [phone] Danelle Bishop MD Unavailable [phone] Nupur Eduardo MD Primary Care Provider [phone] Encounter Details Date Type Department Care Team (Latest Contact Info) Description 09/24/2015 Orders Only [facility] CLINCONV ProviderStanley MD [address] [place] [address] Social History Tobacco Use Types Packs/Day Years Used Date Smoking Tobacco: Never Assessed Sex and Gender Information Value Date Recorded Sex Assigned at Not on file 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 Gender Identity Not on file Sexual Orientation [...] on filedocumented in this encounter Care Teams Rn Triage Relationship Specialty Start Date End Date Chelsie Nair MD [address] [place] [address] DR SAIMA Dominguez [facility] [address] [place] [address] PCP - General Family Medicine 09/05/17 01/01/20 Ralf Eduardo MD [address] [place] [address] DR SAIMA Dominguez [address] [address] PCP - General Internal Medicine 02/24/20 Nupur Eduardo MD [address] [facility] [address] [place] [phone] PCP - General 01/02/20 02/23/20 Charles Medina MD [address] [place] [address] DR SAIMA Dominguez [facility] [address] [place] [address] Casting Operator Interventional Cardiology 09/08/19 Wilda Estes MD [address] [place] [address] DR SAIMA Dominguez [facility] [address] [place] [address] Surgeon Orthopedic Surgery 02/24/20 Danelle Bishop MD [address] [facility] [place] [address] Referring Physician Urology 02/24/20 documented as of this encounter
--- OUTSIDE RECORDS SUMMARY | 2025-02-19 14:32 | XMS_ITS | Encounter Summary ---
Author Organization [facility] Address [address] [place] [address] Phone Care Team Providers Care Shop Mechanic Name Role Phone Chelsie Monsivais MD Primary Care Provider Ralf Eduardo MD Primary Care Provider [phone] Tomas Reddy APRN, WEB COMMUNICATIONS SPECIALIST Unavailable Regi Alcantar APRN, WEB COMMUNICATIONS SPECIALIST Primary Care Provid er Reason for Visit * Reason Comments Medication Refill Encounter Details Date Type Department Care Team (Late st Contact Info) Description 02/17/2021 Refill [facility] #[address] [place] [address] Danelle Bishop MD [address] [facility] [address] [place] [address] Medication Refill Social History Tobacco Use Types [...] Description 04/21/2025 10:15 AM CDT Office Visit [facility] [place] [address] Tomas Reddy APRN, WEB COMMUNICATIONS SPECIALIST [address] [place] [address] documented as of this encounter Visit Diagnoses Diagnosis Hypogonadism in male documented in this encounter Care Teams Shop Mechanic Relationship Specialty Start Date End Date Adolfog Chelsie Marie MD [address] [facility] [place] [address] PCP - General Family Medicine 01/13/20 08/08/21 Ralf Eduardo MD [address] [place] [address] PCP - General Adult Medicine 08/09/21 03/18/24 Regi Alcantar APRN, WEB COMMUNICATIONS SPECIALIST [address] [place] [address] PCP - General Advanced Practice Nurse 03/19/24 Tomas Reddy APRN, WEB COMMUNICATIONS SPECIALIST [address] [place] [address] Nurse Practitioner Advanced Practice Nurse 08/08/22 documented as of this encounter
--- OUTSIDE RECORDS SUMMARY | 2025-02-19 14:32 | XMS_ITS | Encounter Summary ---
Author Organization [facility] Address [address] [place] [address] Care Team Providers Care Mounter Sousaphones Name Role Phone Regi Alcantar NP Primary Care Provider [phone] Encounter Details Date Type Department Care Team (Late Contact Info) Description 01/22/2025 MyChart Message Enc [facility] Multispecialty Care - [place] [address] [place] [address] Regi Alcantar NP [address] [place] [address] cardiology Social History Tobacco Use [...] CDT Travel History Travel Start Travel End [place] 02/12/2025 02/13/2025 [place] 02/10/2025 02/10/2025 [place] 02/09/2025 025 documented as of this encounter Plan of Treatment Upcoming Encounters Date Type Department Care Team (Late st Contact Info) Description 05/27/2025 8:00 AM BENEFITS ADMINISTRATOR Office Visit [facility] Mult[facility]pecialty Care - [place] [address] [place] [address] Regi Alcantar NP [address] [place] [address] documented as of this encounter Visit Diagnoses Not on filedocumented in this encounter Additional Health Concerns Assessment Noted Time PHQ-9 Depression Total Score: 9 10/17/19 25 9:36 AM CDT documented as of this encounter Care Teams Mounter Sousaphones Relationship Specialty Start Date End Date Regi Alcantar NP [address] [facility] [address] [place] [address] PCP - General NURSE PRACTITIONER 02/08/24 documented as of this encounter
--- OUTSIDE RECORDS SUMMARY | 2025-02-19 14:32 | XMS_ITS | Encounter Summary ---
Author Organization [facility] Address [facility] [place] [address] Care Team Providers Care Solvent Plant Treater Name Role Phone Deborah Alcantar NP Primary Care Provider [phone] Reason for Visit * Reason Comments Pain Patient presents tod ay with back and neck pain that is going down both arms and legs. Started x2 days ago. Encounter Details Date Type Department Care Team (Late st Contact Info) Description 02/19/2025 11:40 AM CDT Office Visit [facility] Multispecialty Care - [place] [address] [facility] [address] [place] [phone] Deborah Alcantar NP [address] [facility] [address] [place], [place] [phone] Pain (Patient presents today with back and [...] CDT Travel History Travel Start Travel End [facility] 02/12/2025 02/13/2025 [place] 02/10/2025 02/10/2025 [place] [...] this encounter Progress Notes * Deborah Alcantar, HYDRAULIC BOOM OPERATOR - 02/19/2025 11:40 AM CDTSummary: body aches, [...] (diabetes mellitus), type 2, uncontrolled, with hyperosmolarity ([facility]/HCC HHS/HCC) Chronic congestive heart failure, unspecified heart failure type ([facility]CC HHS/HCC) Non-ischemic cardiomyopathy ([facility] HHS/HCC) Major depressive disorder, recurrent episode, moderate ([facility]/HCC) Mixed hyperlipidemia Insomnia, unspecified type [...] the day of the encounter. This includes mozw-xn-hkpm and qfw-nrjv-cg-face time I provided on the day of [...] in 1 week DEBORAH ALCANTAR NP 02/19/2025 [facility] [[facility]] Past Medical History: Diagnosis Date Anemia CHF (congestive heart failure) ([facility] HHS/HCC) Depression Diabetes mellitus ([facility]) GERD (gastroesophageal reflux disease) Hypertension [2] No [...] 90 tablet 1 B-D 3CC LUER-SARAN SYR 44UE6-6/2 21G X 1-1/2 3 ML Misc USE [...] st Contact Info) Description 05/27/2025 8:00 AM LICENSED OCCUPATIONAL THERAPIST Office Visit [facility] Mult[facility] Care - [place] [address] [place] [address] Deborah Alcantar NP [address] [place] [address] documented as of this encounter Visit Diagnoses Diagnosis Arthralgia, unspecified joint- Primary Bursitis of left knee, unspecified bursa documented in this encounter Additional Health Concerns Assessment Noted Time PHQ-9 Depression Total Score: 9 10/17/19 25 9:36 AM CDT documented as of this encounter Care Teams Solvent Plant Treater Relationship Specialty Start Date End Date Deborah Alcantar NP [address] [place] [address] PCP - General NURSE PRACTITIONER 02/08/24 documented as of this encounter
--- OUTSIDE RECORDS SUMMARY | 2025-02-19 14:32 | XMS_ITS | Encounter Summary ---
Author Organization [facility] Address [facility]ly [facility] [place] [address] Care Team Providers Care Batter Mixer Helper Name Role Phone Regi Alcantar NP Primary Care Provider [phone] Encounter Details Date Type Department Care Team (Latest Contact Info) Description 01/22/2025 Results Follow-Up [facility] Multispecialty Care - [place] [address] [place] [address] Regi Alcantar NP [address] [place], [place] [phone] A1C (BACK OFFICE), COMPREHENSIVE METABOLIC PANEL, LIPID [...] History Travel Start Travel End [facility] 02/12/2025 02/13/2025 [place] 02/10/2025 02/10/2025 [place] 02/09/2025 025 documented as of this encounter Plan of Treatment Upcoming Encounters Date Type Department Care Team (Late st Contact Info) Description 05/27/2025 8:00 AM CARBON PAPER INTERLEAFER Office Visit [facility] Mult[facility]pec[facility] - [place] [address] [place] [address] Regi Alcantar, MANAGER [facility] HE[facility] AND [facility]AF[facility] [address] [place] [address] documented as of this encounter Visit Diagnoses Not on filedocumented in this encounter Additional Health Concerns Assessment Noted Time PHQ-9 Depression Total Score: 9 10/17/19 25 9:36 AM CDT documented as of this encounter Care Teams Batter Mixer Helper Relationship Specialty Start Date End Date Regi Alcantar MANAGER [facility] HEALTH AND S[facility] [address] [place] [address] PCP - General NURSE PRACTITIONER 02/08/24 documented as of this encounter
--- OUTSIDE RECORDS SUMMARY | 2025-02-19 14:32 | XMS_ITS | Encounter Summary ---
Author Organization [facility] Facility Care Team Providers Care Repairing Calibrator Name Role Phone Chelsie Nair MD Primary Care Provider [phone] Charles Medina MD Unavailable [phone] Ralf Eduardo MD Primary Care Provider + [phone] Wilda Estes MD Unavailable [phone] Danelle Bishop MD Unavailable [phone] Nupur Eduardo MD Primary Care Provider [phone] Encounter Details Date Type Department Care Team (Latest Contact Info) Description 04/08/2016 Orders Only [facility] CLINCONV ProviderStanley MD [address] [place] [address] Social History Tobacco Use Types Packs/Day Years Used Date Smoking Tobacco: Never Assessed Sex and Gender Information Value Date Recorded Sex Assigned at Not on file 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 Gender Identity Not on file Sexual Orientation [...] on filedocumented in this encounter Care Teams Repairing Calibrator Relationship Specialty Start Date End Date Chelsie Nair MD [address] [facility] [address] SAIMA Dominguez [address] [address] PCP - General Family Medicine 09/05/17 01/01/20 Ralf Eduardo MD [address] [place] [address] [address] SAIMA Dominguez [address] [address] PCP - General Internal Medicine 02/24/20 Nupur Eduardo MD [address] [place] [address] [address] [place] [address] PCP - General 01/02/20 02/23/20 Charles Medina MD [address] [place] [address] [address] SAIMA Dominguez [address] [address] Last Cleaner Interventional Cardiology 09/08/19 Wilda Estes MD [address] [place] [address] DR SAIMA Dominguez [address] [address] Surgeon Orthopedic Surgery 02/24/20 Danelle Bishop MD [address] [place] [address] DR SAIMA Dominguez [address] [address] Referring Physician Urology 02/24/20 documented as of this encounter
--- OUTSIDE RECORDS SUMMARY | 2025-02-19 14:32 | XMS_ITS | Encounter Summary ---
Author Organization [facility] Address [address] [place] [address] Phone Care Team Providers Care Nuclear Logging Engineer Name Role Phone Chelsie Monsivais MD Primary Care Provider Ralf Eduardo MD Primary Care Provider Tomas Reddy APRN, EXPLOSIVE EXPERT Unavailable [phone] Regi Alcantar APRN, EXPLOSIVE EXPERT Primary Care Provid er Reason for Visit * Reason Comments Medication Refill Encounter Details Date Type Department Care Team (Late st Contact Info) Description 02/11/2021 Refill [facility] #2 [place] [address] Danelle Bishop MD [address] [facility] [address] [place] [address] Medication Refill Social History Tobacco Use Types [...] Description 04/21/2025 10:15 AM CDT Office Visit [facility] #2 [place] [address] Tomas Reddy APRN, EXPLOSIVE EXPERT #2 [place] [address] documented as of this encounter Visit Diagnoses Diagnosis Hypogonadism in male documented in this encounter Care Teams Nuclear Logging Engineer Relationship Specialty Start Date End Date Adolfog Chelsie Marie MD [address] [place] [address] PCP - General Family Medicine 01/13/20 08/08/21 Ralf Eduardo MD [address] [place] [address] PCP - General Adult Medicine 08/09/21 03/18/24 Regi Alcantar APRN, EXPLOSIVE EXPERT #2 [place] [address] PCP - General Advanced Practice Nurse 03/19/24 Tomas Reddy APRN, EXPLOSIVE EXPERT #2 [place] [address] Nurse Practitioner Advanced Practice Nurse 08/08/22 documented as of this encounter
--- OUTSIDE RECORDS SUMMARY | 2025-02-19 14:32 | XMS_ITS | Encounter Summary ---
Author Organization [facility] Address Critical access hospital[address] [place] [address] Care Team Providers Care Independent Film Maker Name Role Phone Regi Alcantar NP Primary Care Provider [phone] Encounter Details Date Type Department Care Team (Latest Contact Info) Description 09/26/2024 [place] Message Enc [place] [address] [facility] [address] [place] [address] [place], [facility] Provider Diabetic Eye Screening Social History Tobacco [...] CDT Travel History Travel Start Travel End [place] 02/12/2025 02/13/2025 [place] 02/10/2025 02/10/2025 [place] 02/09/2025 025 documented as of this encounter Plan of Treatment Upcoming Encounters Date Type Department Care Team (Late st Contact Info) Description 05/27/2025 8:00 AM SENSOR TECHNICIAN [facility] [place] [address] [place] [address] Regi Alcantar NP [address] [facility] [address] [place] [address] documented as of this encounter Visit Diagnoses Not on filedocumented in this encounter Additional Health Concerns Assessment Noted Time PHQ-9 Depression Total Score: 13 06/18/ 024 1:47 PM SENSOR TECHNICIAN documented as of this encounter Care Teams Independent Film Maker Relationship Specialty Start Date End Date Regi Alcantar NP [address] [address] [place] [address] PCP - General NURSE PRACTITIONER 02/08/24 documented as of this encounter
--- OUTSIDE RECORDS SUMMARY | 2025-02-19 14:32 | XMS_ITS | Encounter Summary ---
Author Organization [facility] Address [address] [place] [address] Phone Care Team Providers Care Outboard Motor Mechanic Name Role Phone Chelsie Monsivais MD Primary Care Provider Ralf Eduardo MD Primary Care Provider Tomas Reddy APRN, CREAM RIPENER Unavailable [phone] Regi Alcantar APRN, CREAM RIPENER Primary Care Provid er Reason for Visit * Reason Comments Medication Refill Encounter Details Date Type Department Care Team (Late st Contact Info) Description 02/16/2021 Refill [facility] #2 [place] [address] Danelle Bishop MD [address] [facility] [address] [place] [address] Medication Refill Social History Tobacco Use Types [...] Description 04/21/2025 10:15 AM CDT Office Visit [facility] #2 [place] [address] Tomas Reddy APRN, CREAM RIPENER #2 [place] [address] documented as of this encounter Visit Diagnoses Diagnosis Hypogonadism in male documented in this encounter Care Teams Outboard Motor Mechanic Relationship Specialty Start Date End Date [facility] Chelsie Marie MD [address] [place] [address] [place] [address] PCP - General Family Medicine 01/13/20 08/08/21 Ralf Eduardo MD [address] [place] [address] PCP - General Adult Medicine 08/09/21 03/18/24 Regi Alcantar APRN, CREAM RIPENER #2 [place] [address] PCP - General Advanced Practice Nurse 03/19/24 Tomas Reddy APRN, CREAM RIPENER #2 [place] [address] Nurse Practitioner Advanced Practice Nurse 08/08/22 documented as of this encounter
--- OUTSIDE RECORDS SUMMARY | 2025-02-19 14:32 | XMS_ITS | Encounter Summary ---
Author Organization [facility] Address Count includes the [facility] [place] [address] Care Team Providers Care Mat Sewer Name Role Phone Regi Alcantar NP Primary Care Provider [phone] Encounter Details Date Type Department Care Team (Late st Contact Info) Description 03/11/2024 Instahealtht Message Enc [place] [address] [facility] [address] [place], [place] [address] Trinh, [facility] Provider Ozempic Social History Tobacco Use [...] Travel Start Travel End [place] 02/12/2025 02/13/2025 [place] 02/10/2025 02/10/2025 [place] 02/09/2025 025 documented as of this encounter Plan of Treatment Upcoming Encounters Date Type Department Care Team (Late st Contact Info) Description 05/27/2025 8:00 AM CHEMICAL PUMPER [facility] [place] [address] [facility] [address] [place] [address] Regi Alcantar, EDGING SUPERVISOR [address] [place] [address] documented as of this encounter Visit Diagnoses Not on filedocumented in this encounter Care Teams Mat Sewer Relationship Specialty Start Date End Date Regi Alcantar EDGING SUPERVISOR [address] [place] [address] PCP - General NURSE PRACTITIONER 02/08/24 documented as of this encounter
--- OUTSIDE RECORDS SUMMARY | 2025-02-19 14:32 | XMS_ITS | Encounter Summary ---
Author Organization [facility] Address [address] [place] [address] Phone Care Team Providers Care Pilot Control Operator Name Role Phone Chelsie Monsivais MD Primary Care Provider Ralf Eduardo MD Primary Care Provider [phone] Tomas Reddy APRN, AERONAUTICAL INSPECTOR Unavailable [phone] Regi Alcantar APRN, AERONAUTICAL INSPECTOR Primary Care Provid er Reason for Visit * Reason Comments Medication Refill Encounter Details Date Type Department Care Team (Late st Contact Info) Description 06/16/2021 Refill [facility] #2 [place] [address] Chema Carmona MD #2 [place] [address] Medication Refill Social History Tobacco Use Types [...] Description 04/21/2025 10:15 AM CDT Office Visit [facility] [address] [place] [address] Tomas Reddy APRN, AERONAUTICAL INSPECTOR #2 [place] [address] documented as of this encounter Visit Diagnoses Diagnosis Hypogonadism in male documented in this encounter Care Teams Pilot Control Operator Relationship Specialty Start Date End Date Adolfog Chelsie Marie MD [address] [facility] [place] [address] PCP - General Family Medicine 01/13/20 08/08/21 Ralf Eduardo MD 30 [place] [address] PCP - General Adult Medicine 08/09/21 03/18/24 Regi Alcantar APRN, AERONAUTICAL INSPECTOR #2 [place] [address] PCP - General Advanced Practice Nurse 03/19/24 Tomas Reddy APRN, AERONAUTICAL INSPECTOR #[address] [place] [address] Nurse Practitioner Advanced Practice Nurse 08/08/22 documented as of this encounter
--- OUTSIDE RECORDS SUMMARY | 2025-02-19 14:32 | XMS_ITS | Clinical Summary ---
Author Organization [facility] Address [address] [place] [address] Care Team Providers Care Facilities Supervisor Name Role Phone Regi Alcantar NP Primary Care Provider [phone] Allergies No known active allergies Medications testosterone cypionate (DEPO TESTOSTERONE) 200 MG/ML injection INJECT 0.75ML INTRAMUSCULARLY EVERY 7 DAYS 024 Active B-D 3CC LUER-SARAN SYR 52DM4-9/2 21G X 1-2 3 ML Misc USE [...] hyperosmolarity (CMS/HCC HHS/HCC),Cardiomy opathy, unspecified type ([facility] HHS/HCC),Chronic congestive heart failure, unspecified heart failure type ([facility] HHS/HCC) 1 Device by Does not apply [...] (diabetes mellitus), type 2, uncontrolled, with hyperosmolarity ([facility]) 02/20/2024 Chronic congestive heart kaylen lure, unspecified heart failure type ([facility]) 02/20/2024 Non-ischemic cardiomyopathy ([facility]) Major depressive disorder, recurrent episode, mo derate 02/20/2024 Mixed hyperlipidemia 02/20/2024 Insomnia, unspecified type 02/20/2024 Encounters Date Type Department Care Team Description 02/19/2025 11:40 AM CDT Office Visit [place] [address] [facility] [address] [place] [address] Regi Alcantar, FIFI Pain (Patient presents today with back and neck pain that is going down both arms and legs. Started x2 days ago. ) 02/19/2025 Travel 02/19/2025 Rapid Mobile Message Enc [address] [place] [address] Regi Alcantar, FIFI Severe headache and joint stiffness 01/22/2025 8:00 AM CDT Office Visit [place] [address] [place] [address] Regi Alcantar, SHINGLES ROOFER Diabetes 01/22/2025 Results Follow-Up [place] [address] [place] [address] Regi Alcantar, FIFI A1C (BACK OFFICE), COMPREHENSIVE METABOLIC PANEL, LIPID PANEL 01/22/2025 Rapid Mobile Message Enc [place] [address] [place] [address] [place] [address] Regi Alcantar, FIFI cardiology 01/22/2025 Telephone [place] [address] [place] [address] Regi Alcantar, SHINGLES ROOFER Record Request 01/22/2025 Travel 11/19/2024 Results Follow-Up [place] [address] [place] [address] [place] [address] Regi Alcantar, FIFI A1C (BACK OFFICE), TSH [...] CDT Travel History Travel Start Travel End [facility] 02/12/2025 02/13/2025 [place] 02/10/2025 02/10/2025 Turks [...] st Contact Info) Description 05/27/2025 8:00 AM SENIOR C SOFTWARE ENGINEER Office Visit [facility] Care - [place] [address] [place] [address] Regi Alcantar, FIFI [address] [place] [address] Health Maintenance Due Date Last Done Comments [...] 11/14/2024 Hepatitis C Completed 02/20/2024 PHQ-2 (Physician [place]) Completed 10/16/2024 Pneumococcal Vaccine: Pediatrics (0 to [...] COMPREHENSIVE METABOLIC PANEL (01/22/2025 8:57 AM CDT) [facility] SODIUM S/P/B 139 136 - 145 MMOL/L 01/22/2025 3:37 PM CDT [facility] POTASSIUM S/P/B 4.2 3.5 - 5.1 MMOL/L 01/22/2025 3:37 PM CDT [facility] CHLORIDE S/P/B 100 98 - 107 MMOL/L 01/22/2025 3:37 PM CDT -[facility] CO2 30.2 21 - 32 MMOL/L 01/22/2025 3:37 PM CDT [facility] GLUCOSE 150(H) 70 - 99 MG/DL 01/22/2025 3:37 PM CDT [facility] BUN 21(H) 7 - 18 MG/DL 01/22/2025 3:37 PM CDT -[facility] CREATININE S/P/B 1.05 0.70 - 1.30 MG/DL 01/22/2025 3:37 PM CDT -[facility] CALCIUM S/P/B 10.2 8.4 - 10.5 MG/DL 01/22/2025 3:37 PM CDT [facility] BILIRUBIN TOTAL S/P/B 1.0 0.2 - 1.0 MG/DL 01/22/2025 3:37 PM CDT [facility] ALKALINE PHOSPHATASE S/P/B 78 45 - 115 U/L 01/22/2025 3:37 PM CDT [facility] AST 15 15 - 37 U/L 01/22/2025 3:37 PM CDT [facility] ALT 29 16 - 63 U/L 01/22/2025 3:37 PM CDT [facility] REJI, [place] TOTAL PROTEIN S/P/B 7.7 6.4 - 8.2 G/DL 01/22/2025 3:37 PM CDT [facility] ALBUMIN S/P/B 4.1 3.4 - 5.0 G/DL 01/22/2025 3:37 PM CDT [facility] [place] ANION GAP 8.8 5 - 15 MMOL/L 01/22/2025 3:37 PM CDT [facility] Comment:REFERENCE RANGE NOT ESTABLISHED OSMOLALITY (CALC) 294 MOSM/KG 025 3:37 PM CDT [facility] [place] Comment:REFERENCE RANGE NOT ESTABLISHED GFR ESTIMATE 87(L) >90 ML/MIN/1. 73 M2 01/22/2025 3:37 PM CDT [facility] GFR NOTES GFR REFERENCE S: 01/22/2025 3:37 PM T [facility] [place] Comment: THE ESTIMATED GFR IS CALCULATED USING [...] NP LABORATORY Final Resul t ESHA LAGUNAS [address] [place] [address], [place] [phone] * (ABNORMAL) LIPID PANEL (01/22/2025 8:57 AM CDT) CHOLESTEROL 155 <200 MG/DL 01/22/2025 3:37 PM CDT [facility] TRIGLYCERIDES 171(H) <150 MG/DL 01/22/2025 3:37 PM CDT [facility] HDL 43 >40 MG/DL 01/22/2025 3:37 PM CDT [facility] LDL-C 78 <100 MG/DL 01/22/2025 3:37 PM CDT [facility] VLDL CALCULATION 34(H) 5 - 28 MG/DL 01/22/2025 3:37 PM CDT [facility] CHOL/HDL RATIO 3.6 0.0 - 4.0 01/22/2025 3:37 PM CDT [facility] LDL/HDL 1.8 0.41 - 2.13 01/22/2025 3:37 PM CDT [facility] NON HDL CHOLESTEROL 112 <140 MG/DL 01/22/2025 3:37 PM CDT [facility] 01/22/2025 8:57 AM CDT Regi Alcantar NP LABORATORY Final Resul t [facility] [address] [place] [address], [place] [phone] * A1C (BACK OFFICE) (01/22/2025) HGB A1C 7.6 % [address], [place] 01/22/2025 Regi Alcantar NP LABORATORY Final Resul t [facility], [facility] [address] [place] [address], [place] [phone] * COLOGUARD (Embrane) (11/14/2024 7:10 AM CDT) COLOGUARD RESULT Negative Negative [email or web address] (CLIA #:[id number]) Comment: The Cologuard (TM) test was performed [...] cancer. Following a negative Cologuard result, the [place] Cancer Society and U.S. Multi-Society Task Force screening guidelines recommend a Cologuard re-screening interval of 3 years. References: [place] Cancer Society Guideline for Colorectal Cancer Screening: https://www.cancer.org/cancer/wxmui-kbupyk-gbjyzy/dnquufici-qvunmjvqv-jfmnpcp/ac s-rec ommendations.html.; Justin DK, Ariane ARAIZA, Rosalinda AdameK, Colorectal Cancer Screening: Recommendations for Physicians and Patients from the U.S. Multi-Society Task Force on Colorectal Cancer Screening , Am J Gastroenterology 2017; 112:0615-8931. TEST DESCRIPTION: Composite algorithmic analysis of stool [...] Albrecht et al, N Engl J Med 2014;370(14):4752-3771.) Cologuard may produce a false negative or false positive result (no colorectal cancer or precancerous polyp present at colonoscopy follow up). A negative Cologuard test result does not guarantee the absence of CRC or advanced adenoma (pre-cancer). The current Cologuard screening interval is every 3 years. ([place] Cancer Society and U.S. Multi-Society Task Force). Cologuard performance data in a 10,000 patient pivotal study using colonoscopy as the reference method can be accessed at the following location: www.[employer]/results. Additional description of the Cologuard test process, warnings and precautions can be found at www.cologuard.com. STOOL STOOL SPECIMEN / Unknown 11/14/2024 7:10 AM CDT 11/15/2024 6:28 AM CDT Regi Alcantar NP BODY FLUIDS AND STOOLS [place] [place] Final Result [employer] [facility] ([facility] [address] LAB) [address] [place] [address], [place] (CLIA #:[id number]) [address] [place] [address] * HEPATITIS C ANTIBODY (02/20/2024 11:46 AM CDT) HEPATITIS C AB NON-REACTI VE NON-REACT JEET 02/20/2024 10:07 PM CDT [facility] Comment: ANTIBODIES TO HCV NOT DETECTED. DOES NOT EXCLUDE THE POSSIBILITY OF EXPOSURE TO HCV. 02/20/2024 11:4 6 AM CDT Regi Alcantar NP LABORATORY Final Resul t [facility] [address] [place] [address], [id number] from Last 3 Months or Most Recently Relevant to Health Maintenance Insurance [facility] Care Teams Facilities Supervisor Relationship Specialty Start Date End Date Regi Alcantar NP [address] [place] [address] PCP - General NURSE PRACTITIONER 02/08/24
--- OUTSIDE RECORDS SUMMARY | 2025-02-19 14:32 | XMS_ITS | Encounter Summary ---
Author Organization [facility] Address [address] [place] [address] Phone Care Team Providers Care Site Monitor Name Role Phone Chelsie Monsivais MD Primary Care Provider Ralf Eduardo MD Primary Care Provider Tomas Reddy APRN, BEAM DYER RECESSED VAT Unavailable [phone] Regi Alcantar APRN, BEAM DYER RECESSED VAT Primary Care Provid er Reason for Visit * Reason Comments Medication Refill Encounter Details Date Type Department Care Team (Late st Contact Info) Description 07/07/2021 Refill [facility] #2 [place] [address] Chema Carmona MD [address] [place] [address] Medication Refill Social History Tobacco Use Types [...] encounter Miscellaneous Notes * Telephone Encounter - Tomime, Alexsander D, RMA - 07/26/2021 4:16 PM CST PT scheduled for an appt OYER RELATIONS REPRESENTATIVE * Telephone Encounter - Amber Tomlin RN - 07/13/2021 3:[address] Augustin, patient will need an appointment for Testosterone refill. OYER RELATIONS REPRESENTATIVE * Telephone Encounter - Amber Tomlin RN [...] 90 days and meeting all other requirements OYER RELATIONS REPRESENTATIVE documented in this encounter Plan of Treatment Upcoming Encounters Date Type Department Care Team (Late st Contact Info) Description 04/21/2025 10:15 AM CDT Office Visit [facility] #[address] [place] [address] Tomas Reddy APRN, BEAM DYER RECESSED VAT [address] [place] [address] documented as of this encounter Visit Diagnoses Diagnosis Hypogonadism in male documented in this encounter Care Teams Site Monitor Relationship Specialty Start Date End Date Hsiang Chelsie Marie MD [address] [place] [address] [address] [place] [address] PCP - General Family Medicine 01/13/20 08/08/21 Ralf Eduardo MD [address] [place] [address] PCP - General Adult Medicine 08/09/21 03/18/24 Regi Alcantar APRN, BEAM DYER RECESSED VAT #[address] [place] [address] PCP - General Advanced Practice Nurse 03/19/24 Tomas Reddy APRN, BEAM DYER RECESSED VAT [address] [place] [address] Nurse Practitioner Advanced Practice Nurse 08/08/22 documented as of this encounter
--- OUTSIDE RECORDS SUMMARY | 2025-02-19 14:32 | XMS_ITS | Encounter Summary ---
Author Organization [facility] Address [facility] [place] [address] Care Team Providers Care Drink Box Mechanic Name Role Phone Regi Alcantar NP Primary Care Provider [phone] Encounter Details Date Type Department Care Team (Latest Contact Info) Description 02/19/2025 MyChart Message Enc [facility] Multispecialty Care - [place] [address] [place] [address] Regi Alcantar, FIFI [address] [place], [place] [id number] Severe headache and joint stiffness Social History [...] CDT Travel History Travel Start Travel End [facility] 02/12/2025 02/13/2025 [place] 02/10/2025 02/10/2025 [place] 02/09/2025 025 documented as of this encounter Plan of Treatment Upcoming Encounters Date Type Department Care Team (Late st Contact Info) Description 05/27/2025 8:00 AM BLADE GRADER OPERATOR Office Visit [facility] Mult[facility]pecialty Care - [place] [address] [place] [address] Regi Alcantar NP [address] [place] [address] documented as of this encounter Visit Diagnoses Not on filedocumented in this encounter Additional Health Concerns Assessment Noted Time PHQ-9 Depression Total Score: 9 10/17/19 25 9:36 AM CDT documented as of this encounter Care Teams Drink Box Mechanic Relationship Specialty Start Date End Date Regi Alcantar NP [address] [place] [address] PCP - General NURSE PRACTITIONER 02/08/24 documented as of this encounter
--- OUTSIDE RECORDS SUMMARY | 2025-02-19 14:32 | XMS_ITS | Encounter Summary ---
Author Organization [facility] Address [facility] [place] [address] Care Team Providers Care Organ Fixer Name Role Phone Regi Alcantar STOPPER MAKER Primary Care Provider [phone] Encounter Details Date Type Department Care Team [...] CDT Travel History Travel Start Travel End [place] 02/12/2025 02/13/2025 [place] 02/10/2025 02/10/2025 [place] 02/09/2025 025 documented as of this encounter Plan of Treatment Upcoming Encounters Date Type Department Care Team (Late st Contact Info) Description 05/27/2025 8:00 AM HEAT TREATER HELPER Office Visit [facility] Multispecialty Care - [place] [address] [place] [address] Regi Alcantar, STOPPER MAKER [address] [place] [address] documented as of this encounter Visit Diagnoses Not on filedocumented in this encounter Additional Health Concerns Assessment Noted Time PHQ-9 Depression Total Score: 9 10/17/19 25 9:36 AM CDT documented as of this encounter Care Teams Organ Fixer Relationship Specialty Start Date End Date Regi Alcantar, STOPPER MAKER [address] [place] [address] PCP - General NURSE PRACTITIONER 02/08/24 documented as of this encounter
--- OUTSIDE RECORDS SUMMARY | 2025-02-19 14:32 | XMS_ITS | Encounter Summary ---
Author Organization [facility] Address [address] [place] [address] Phone Care Team Providers Care Assistant Administrator Name Role Phone Tomas Reddy APRN, CNP Unavailable Regi Alcantar APRN, GEOFF Primary Care Provid er Encounter Details Date Type Department Care Team (Late Contact Info) Description 01/12/2025 Results Follow-Up [facility] #[address] [place] [address] Tomas Reddy APRN, GEOFF [address] [place] [address] HEMATOCRIT, PSA DIAGNOSTIC,TOTAL, TESTOSTERONE, ESTRADIOL Social History [...] Visit [facility] #[address] [place] [address] Tomas Reddy APRN, JET DYEING MACHINE TENDER [address] [place] [address] documented as of this encounter Visit Diagnoses Not on filedocumented in this encounter Care Teams Assistant Administrator Relationship Specialty Start Date End Date Regi Alcantar APRN, JET DYEING MACHINE TENDER [address] [place] [address] PCP - General Advanced Practice Nurse 03/19/24 Tomas Reddy APRN, JET DYEING MACHINE TENDER [address] [place] [address] Nurse Practitioner Advanced Practice Nurse 08/08/22 documented as of this encounter
--- OUTSIDE RECORDS SUMMARY | 2025-02-19 14:32 | XMS_ITS | Encounter Summary ---
Author Organization [facility] Address [address] [place] [address] Phone Care Team Providers Care Methods Analyst Data Processing Name Role Phone Tomas Reddy APRN, CNP Unavailable [phone] Regi Alcantar APRN, CNP Primary Care Provid er Reason for Visit * Reason Comments Medication Refill Encounter Details Date Type Department Care Team (Late st Contact Info) Description 11/17/2024 Refill [facility] [place] [address] Tomas Reddy APRN, CNP [address] [place] [address] Medication Refill Social History Tobacco Use Types [...] 04/15/24 Office Visit Tomas Reddy APRN, CNP [facility] [place] Showing recent visits within past 365 days and meeting all other requirements Future Appointments Date Type Provider Dept 11/24/24 Appointment Tomas Reddy APRN, CNP [facility] [place] Showing future appointments within next 90 days and meeting all other requirements Passed - Absence of nitrates on med list documented in this encounter Plan of Treatment Upcoming Encounters Date Type Department Care Team (Late st Contact Info) Description 04/21/2025 10:15 AM CDT Office Visit [facility] [address] [place] [address] Tomas Reddy APRN, CNP [address] [place] [address] documented as of this encounter Visit Diagnoses Diagnosis Erectile dysfunction due to arterial insufficiency Impotence of organic origin Hypogonadism in male documented in this encounter Care Teams Methods Analyst Data Processing Relationship Specialty Start Date End Date Regi Alcantar APRN, CNP [address] [place] [address] PCP - General Advanced Practice Nurse 03/19/24 Tomas Reddy APRN, CNP [address] [place] [address] Nurse Practitioner Advanced Practice Nurse 08/08/22 documented as of this encounter
--- OUTSIDE RECORDS SUMMARY | 2025-02-19 14:32 | XMS_ITS | Encounter Summary ---
Author Organization [facility] Address [address] [place] [address] Care Team Providers Care Spa Receptionist Name Role Phone Regi Alcantar NP Primary Care Provider [phone] Encounter Details Date Type Department Care Team (Late st Contact Info) Description 03/06/2024 MyChart Message Enc [facility] [place] [address] [place], [place] [id number] Regi Alcantar NP [address] [place], [place] [id number] medication Social History Tobacco Use Types Packs/Day [...] CDT Travel History Travel Start Travel End [place] 02/12/2025 02/13/2025 [place] 02/10/2025 02/10/2025 [place] 02/09/2025 025 documented as of this encounter Plan of Treatment Upcoming Encounters Date Type Department Care Team (Late st Contact Info) Description 05/27/2025 8:00 AM BEARING PRESS MACHINE OPERATOR Office Visit [facility] [place] [address] [place] [address] Regi Alcantar NP [address] [place] [address] documented as of this encounter Visit Diagnoses Not on filedocumented in this encounter Care Teams Spa Receptionist Relationship Specialty Start Date End Date Regi Alcantar NP [address] [place] [address] PCP - General NURSE PRACTITIONER 02/08/24 documented as of this encounter
--- OUTSIDE RECORDS SUMMARY | 2025-02-19 14:33 | XMS_ITS | Encounter Summary ---
Author Organization [facility] Facility Care Team Providers Care Director Of Curriculum Name Role Phone Chelsie Nair MD Primary Care Provider [phone] Charles Medina MD Unavailable [phone] Ralf Eduardo MD Primary Care Provider + [phone] Wilda Estes MD Unavailable [phone] Danelle Bishop MD Unavailable [phone] Nupur Eduardo MD Primary Care Provider [phone] Encounter Details Date Type Department Care Team (Latest Contact Info) Description 04/16/2014 Orders Only [facility] CLINCONV ProviderStanley MD [address] [place] [address] Social History Tobacco Use Types Packs/Day Years Used Date Smoking Tobacco: Never Assessed Sex and Gender Information Value Date Recorded Sex Assigned at Not on file Legal Sex Male 6:21 PM FELLER OPERATOR Gender Identity Not on file Sexual Orientation [...] on filedocumented in this encounter Care Teams Director Of Curriculum Relationship Specialty Start Date End Date Chelsie Nair MD [address] [facility] [address] SAIMA Dominguez [address] [address] PCP - General Family Medicine 09/05/17 01/01/20 Rlaf Eduardo MD [address] [place] [address] DR SAIMA Dominguez [address] [address] PCP - General Internal Medicine 02/24/20 Nupur Eduardo MD [address] [place] [address] [address] [place] [address] PCP - General 01/02/20 02/23/20 Charles Medina MD [address] [place] [address] DR SAIMA Dominguez [address] [address] Coat Padder Interventional Cardiology 09/08/19 Wilda Estes MD [address] [place] [address] DR SAIMA Dominguez [address] [address] Surgeon Orthopedic Surgery 02/24/20 Danelle Bishop MD [address] [place] [address] DR SAIMA Dominguez [address] [address] Referring Physician Urology 02/24/20 documented as of this encounter
--- OUTSIDE RECORDS SUMMARY | 2025-02-19 14:33 | XMS_ITS | Encounter Summary ---
Author Organization [facility] Address [address] [place] [address] Phone Care Team Providers Care Solutions Operator Name Role Phone Ralf Eduardo MD Primary Care Provider Tomas Reddy APRN, SENIOR PRODUCT DEVELOPMENT ENGINEER Unavailable Regi Alcantar APRN, SENIOR PRODUCT DEVELOPMENT ENGINEER Primary Care Provid er Reason for Visit * Reason Comments Medication Refill Encounter Details Date Type Department Care Team (Late st Contact Info) Description 07/14/2023 Refill [facility] [address] [place] [phone] Tomas Reddy APRN, SENIOR PRODUCT DEVELOPMENT ENGINEER [address] [place] [address] Medication Refill Social History Tobacco Use Types [...] Description 04/21/2025 10:15 AM CDT Office Visit [facility] [address] [place] [address] Tomas Reddy APRN, SENIOR PRODUCT DEVELOPMENT ENGINEER [address] [facility] [place] [address] documented as of this encounter Visit Diagnoses Diagnosis Hypogonadism in male documented in this encounter Care Teams Solutions Operator Relationship Specialty Start Date End Date Ralf Eduardo MD [address] [place] [address] PCP - General Adult Medicine 08/09/21 03/18/24 Regi Alcantar APRN, SENIOR PRODUCT DEVELOPMENT ENGINEER [address] [place] [address] PCP - General Advanced Practice Nurse 03/19/24 Tomas Reddy APRN, SENIOR PRODUCT DEVELOPMENT ENGINEER [address] [place] [address] Nurse Practitioner Advanced Practice Nurse 08/08/22 documented as of this encounter
--- OUTSIDE RECORDS SUMMARY | 2025-02-19 14:33 | XMS_ITS | Clinical Summary ---
Author Organization [facility] Address [address] [place] [address] Care Team Providers Care Burglar Alarm Installer Name Role Phone Charles Medina MD Unavailable [phone] Ralf Eduardo MD Primary Care Provider [phone] Wilda Estes MD Unavailable [phone] Danelle Bishop MD Unavailable [phone] Allergies No known active allergies Medications testosterone [...] water. His DME is [facility] in [facility]. He will follow up here annually. [...] caused. 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 Work /up and r/o sickle [...] Resolved Date Body mass index 40.0-44.9, adult ([facility]) 11/15/2022 10/08/2023 8. Elevated CK 02/24/2020 10/08/2023 [...] (08/29/2019): Added automatically from request for surgery [id number] 8. h/o right ankle fx from s imple fall down stairs 05/11/2019 10/08/2023 Assessment & Plan (02/24/2020 12:46 PM CDT): anklel and nose fractures from simple falls. Suspect osteoporotic? Paolo with long-term vit D deficiency and low Testosterone. 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 Plate Right: Foot Synthes I 241.351 / / Synthes 204.814 3.5mm 6mm 14mm 2.5mm Self Tap Small Hexagonal Socket Low Profile - [id number] Implanted:Qty: 1 on 09/19/2019 by Wilda Estes MD at [facility] Screw Right: Foot Synthes I 204.814 / / Synthes 206.050 4mm 6mm 50mm Small Hexagonal Socket Cancellous Full Thread Screw - [id number] Implanted:Qty: 1 on 09/19/2019 by Wilda Estes MD at [facility] Screw Right: Foot Synthes I 206.050 / / Synthes 206.055 4mm 6mm 55mm Small Hexagonal Socket Cancellous Full Thread Screw - [id number] Implanted:Qty: 1 on 09/19/2019 by Wilda Estes MD at [facility] Screw Right: Foot Synthes I 206.055 / / Synthes 206.055 4mm 6mm 55mm Small Hexagonal Socket Cancellous Full Thread Screw - [id number] Implanted:Qty: 1 on 09/19/2019 by Wilda Estes MD at [facility] Screw Right: Foot Synthes I 206.055 / / [employer] Ar-1915sf Corkscrew Fiberwire 3.5mm 12mm Self Tap Eyelet Handle Fitter Placer - [id number] Implanted:Qty: 1 on 09/19/2019 by Wilda Estes MD at [facility] Right: Foot [employer] 10/21/2023 AR-1915SF / / [id number] [employer] Ar-1915sf Corkscrew Fiberwire 3.5mm 12mm Self Tap Eyelet Handle Fitter Placer - [id number] Implanted:Qty: 1 on 09/19/2019 by Wilda Estes MD at [facility] Right: Foot [employer] 03/22/2022 AR-1915SF / / [id number] [employer] Ar-1915sf Corkscrew Fiberwire 3.5mm 12mm Self Tap Eyelet Handle Fitter Placer - [id number] Implanted:Qty: 1 on 09/19/2019 by Wilda Estes MD at [facility] Right: Foot [employer] 10/21/2023 AR-1915SF / / [id number] Procedures Procedure Name Priority Date/Time Associated Diagnosis [...] type, unspecified whether angina present, unspecified whether marshall or transplanted heart 1. HTN Type 2 [...] type, unspecified whether angina present, unspecified whether marshall or transplanted heart 1. HTN Type 2 [...] type, unspecified whether angina present, unspecified whether marshall or transplanted heart 1. HTN Type 2 [...] type, unspecified whether angina present, unspecified whether marshall or transplanted heart 1. HTN Type 2 [...] Eduardo MD LAB BLOOD ORDERABLES [facility] Performing Organization Address [facility] de Phone Number [facility] [address] [place] [address] * (ABNORMAL) Albumin Creatinine Ratio, Urine (03/14/2022 [...] ORDERABLES Final R esult Performing Organization Address [facility] de Phone Number [facility] [address] [place] [address] * (ABNORMAL) Lipid panel (03/14/2022 10:23 AM [...] Jose Luis ALVAREZ et al. TEDDY. 2013;310(19): 2056-5715 (http://education.Woofound/faq/URK490) Chol/HDL ratio 3.7 <5.0 (calc) [facility] [...] MD LAB BLOOD ORDERABLES Final R esult [facility] [address] [place] [address] * (ABNORMAL) Comprehensive metabolic panel (03/14/2022 10:23 AM CDT) Glucose 276(H) 65 - 99 mg/dL [facility] Comment: Fasting reference interval For someone without known diabetes, a glucose value >125 mg/dL indicates that they may have diabetes and this should be confirmed with a follow-up test. BUN 25 7 - 25 mg/dL [facility] Creatinine 1.06 0.60 - 1.29 mg/dL [facility] eGFR 88 > OR = 60 mL/min/1. 73m2 [facility] Comment: The eGFR is based on the CKD-EPI 2020 equation. To calculate the new eGFR from a previous Creatinine or Cystatin C result, go to https://www.kidney.org/professionals/ kdoqi/gfr%5Fcalculator BUN/creat ratio NOT APPLICABLE 6 - 22 (calc) [facility] Sodium 133(L) 135 - 146 mmol/L [facility] Potassium, pl 4.8 3.5 - 5.3 mmol/L [facility] Chloride 99 98 - 110 mmol/L [facility] CO2 26 20 - 32 mmol/L [facility] Calcium 9.9 8.6 - 10.3 mg/dL [facility] Protein, sr 7.3 6.1 - 8.1 g/dL [facility] Albumin 4.4 3.6 - 5.1 g/dL [facility] GLOBULIN 2.9 1.9 - 3.7 g/dL (calc) [facility] Alb/glob ratio 1.5 1.0 - 2.5 (calc) [facility] Bilirubin, total 0.9 0.2 - 1.2 mg/dL [facility] Alk phos 78 36 - 130 U/L [facility] AST 18 10 - 40 U/L [facility] ALT (SGPT) 29 9 - 46 U/L [facility] Blood specimen (specimen) 03/14/2022 10:23 AM CDT 03/14/2022 10:26 AM CDT us Ralf Eduardo MD LAB BLOOD ORDERABLES Final R esult [facility] [address] [address] from Last 3 Months or Most Recently Relevant to Health Maintenance Insurance [facility] MEDICARE RAILROAD [facility] CHOICE OOS Member Subscriber Plan / Payer (Ef fective 2022-Present) Name:Cade Gonzalez Member ID:[id number] Relation to Subscriber:Self Name:Cade Gonzalez Subscriber ID:[id number] Payer ID:[id number] (NAIC) Type:frents Address: [address] ACCESS CHOICE Care Teams Burglar Alarm Installer Relationship Specialty Start Date End Date Ralf Eduardo MD PCP - General Internal Medicine 02/24/20 Charles Medina MD Internet Developer Interventional Cardiology 09/08/19 Wilda Estes MD Surgeon Orthopedic Surgery 02/24/20 Danelle Bishop MD Referring Physician Urology 02/24/20
--- OUTSIDE RECORDS SUMMARY | 2025-02-19 14:33 | XMS_ITS | Encounter Summary ---
Author Organization [facility] Facility Care Team Providers Care Senior Examiner Name Role Phone Chelsie Nair MD Primary Care Provider [phone] Charles Medina MD Unavailable [phone] Ralf Eduardo MD Primary Care Provider [phone] Wilda Estes MD Unavailable [phone] Danelle Bishop MD Unavailable [phone] Nupur Eduardo MD Primary Care Provider [phone] Encounter Details Date Type Department Care Team (Latest Contact Info) Description 04/13/2015 Orders Only [facility] CLINCONV ProviderStanley MD [address] [place] [address] Social History Tobacco Use Types Packs/Day Years Used Date Smoking Tobacco: Never Assessed Sex and Gender Information Value Date Recorded Sex Assigned at Not on file 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 Gender Identity Not on file Sexual Orientation [...] on filedocumented in this encounter Care Teams Senior Examiner Relationship Specialty Start Date End Date Chelsie Nair MD [address] [facility] [address] SAMIA Dominguez [address] [address] PCP - General Family Medicine 09/05/17 01/01/20 Ralf Eduardo MD [address] [place] [address] DR SAIMA Dominguez [address] [address] PCP - General Internal Medicine 02/24/20 Nupur Eduardo MD [address] [place] [address] [address] [place] [address] PCP - General 01/02/20 02/23/20 Charles Medina MD [address] [place] [address] DR SAIMA Dominguez [address] [address] Chute Tender Interventional Cardiology 09/08/19 Wilda Estes MD [address] [place] [address] DR SAIMA Dominguez [address] [address] Surgeon Orthopedic Surgery 02/24/20 Danelle Bishop MD [address] [place] [address] DR SAIMA Dominguez [address] [address] Referring Physician Urology 02/24/20 documented as of this encounter
--- OUTSIDE RECORDS SUMMARY | 2025-02-19 14:33 | XMS_ITS | Encounter Summary ---
Author Organization [facility] Facility Care Team Providers Care Pipe Fitter Soft Copper Name Role Phone Chelsie Nair MD Primary Care Provider [phone] Charles Medina MD Unavailable [phone] Rlaf Eduardo MD Primary Care Provider + [phone] Wilda Estes MD Unavailable [phone] Danelle Bishop MD Unavailable [phone] Nupur Eduardo MD Primary Care Provider [phone] Encounter Details Date Type Department Care Team (Latest Contact Info) Description 04/09/2016 Orders Only [facility] CLINCONV ProviderStanley MD [address] [place] [address] Social History Tobacco Use Types Packs/Day Years Used Date Smoking Tobacco: Never Assessed Sex and Gender Information Value Date Recorded Sex Assigned at Not on file 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 Gender Identity Not on file Sexual Orientation [...] on filedocumented in this encounter Care Teams Pipe Fitter Soft Copper Relationship Specialty Start Date End Date Chelsie Nair MD [address] [facility] [address] SAIMA Dominguez [address] [address] PCP - General Family Medicine 09/05/17 01/01/20 Ralf Eduardo MD [address] [place] [address] DR SAIMA Dominguez [address] [address] PCP - General Internal Medicine 02/24/20 Nupur Eduardo MD [address] [place] [address] [address] [place] [address] PCP - General 01/02/20 02/23/20 Charles Medina MD [address] [place] [address] DR SAIMA Dominguez [address] [address] Chicken Tender Interventional Cardiology 09/08/19 Wilda Estes MD [address] [place] [address] DR SAIMA Dominguez [address] [address] Surgeon Orthopedic Surgery 02/24/20 Danelle Bishop MD [address] [place] [address] DR SAIMA Dominguez [address] [address] Referring Physician Urology 02/24/20 documented as of this encounter
--- OUTSIDE RECORDS SUMMARY | 2025-02-19 14:33 | XMS_ITS | Encounter Summary ---
Author Organization [facility] Address [address] [place] [address] Phone Care Team Providers Care Plate Take Out Worker Name Role Phone Ralf Eduardo MD Primary Care Provider [phone] Tomas Reddy APRN, FOOD QUALITY TECHNICIAN Unavailable [phone] Regi Alcantar APRN, FOOD QUALITY TECHNICIAN Primary Care Provid er Reason for Visit * Reason Comments Medication Refill Encounter Details Date Type Department Care Team (Late st Contact Info) Description 10/31/2022 Refill [facility] [address] [place] [address] Tomas Reddy APRN, FOOD QUALITY TECHNICIAN [address] [place] [address] Medication Refill Social History Tobacco Use Types [...] * Telephone Encounter - Alexsander Reilly, [facility] - 11/28/2022 9:14 AM CDT Lvm for [...] Description 04/21/2025 10:15 AM CDT Office Visit [facility] [address] [place] [address] Tomas Reddy APRN, CNP [address] [place] [address] documented as of this encounter Visit Diagnoses Diagnosis Hypogonadism in male documented in this encounter Care Teams Plate Take Out Worker Relationship Specialty Start Date End Date Ralf Eduardo MD [address] [place] [address] PCP - General Adult Medicine 08/09/21 03/18/24 Regi Alcantar APRN, CNP [address] [place] [address] PCP - General Advanced Practice Nurse 03/19/24 Tomas Reddy APRN, CNP [address] [place] [address] Nurse Practitioner Advanced Practice Nurse 08/08/22 documented as of this encounter
--- OUTSIDE RECORDS SUMMARY | 2025-02-19 14:33 | XMS_ITS | Encounter Summary ---
Author Organization [facility] Facility Care Team Providers Care Marketing Programs Manager Name Role Phone Chelsie Nair MD Primary Care Provider [phone] Charles Medina MD Unavailable [phone] Ralf Eduardo MD Primary Care Provider + [phone] Wilda Estes MD Unavailable [phone] Danelle Bishop MD Unavailable [phone] Nupur Eduardo MD Primary Care Provider [phone] Encounter Details Date Type Department Care Team (Latest Contact Info) Description 04/16/2017 Orders Only [facility] CLINCONV ProviderStanley MD [address] [place] [address] Social History Tobacco Use Types Packs/Day Years Used Date Smoking Tobacco: Never Assessed Sex and Gender Information Value Date Recorded Sex Assigned at Not on file 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 us Historical Provider [facility] LUANNE CHAMBERLAIN Final Result documented in this encounter Visit Diagnoses Not on filedocumented in this encounter Care Teams Marketing Programs Manager Relationship Specialty Start Date End Date Chelsie Nair MD [address] [facility] [address] SAIMA Dominguez [address] [address] PCP - General Family Medicine 09/05/17 01/01/20 Ralf Eduardo MD [address] [place] [address] DR SAIMA Dominguez [address] [address] PCP - General Internal Medicine 02/24/20 Nupur Eduardo MD [address] [place] [address] [address] [place] [address] PCP - General 01/02/20 02/23/20 Charles Medina MD [address] [place] [address] DR SAIMA Dominguez [address] [address] Mid Level Business Analyst Interventional Cardiology 09/08/19 Wilda Estes MD [address] [place] [address] DR SAIMA Dominguez [address] [address] Surgeon Orthopedic Surgery 02/24/20 Danelle Bishop MD [address] [place] [address] DR SAIMA Dominguez [address] [address] Referring Physician Urology 02/24/20 documented as of this encounter
--- OUTSIDE RECORDS SUMMARY | 2025-02-19 14:33 | XMS_ITS | Clinical Summary ---
Author Organization [facility] Address [address] [place] [address] Phone Care Team Providers Care Commercial Carpenter Name Role Phone Tomas Reddy APRN, GEOFF Unavailable Regi Alcantar APRN, LEGAL COORDINATOR Primary Care Provid er Allergies No known [...] fluticasone (Flonase Allergy Relief) 50 MCG/ACT Suspension [place] 1 spray every day by intranasal route. 0 Active insulin detemir (Levemir FlexPen) 100 UNIT/ML Solution Pen-injector 15 units daily at bedtime 9 Active ergocalciferol (VITAMIN D) 71740 UNIT Capsule TAKE ONE CAPSULE BY MOUTH [...] Follow-Up [facility] [address] [place] [address] Tomas Reddy, SPECIAL OFFICER AUTOMAT, LEGAL COORDINATOR HEMATOCRIT, PSA DIAGNOSTIC,TOTAL, TESTOSTERONE, ESTRADIOL 01/06/2025 10:00 AM CDT Office Visit [facility] [address] [place] [address] Tomas Reddy APRN, GEOFF Erectile dysfunction due [...] Height 182.9 cm (6') 08/26/2024 1:21 PM EQUIPMENT WORKER Body Mass Index 37.73 08/26/2024 1:21 PM EQUIPMENT WORKER Plan of Treatment Upcoming Encounters Date Type Department Care Team (Late st Contact Info) Description 04/21/2025 10:15 AM CDT Office Visit [facility] [address] [place] [address] Tomas Reddy APRN, GEOFF [address] [place] [address] Health Maintenance Due Date Last Done Comments [...] 43 <=44 pg/mL 01/06/2025 9:43 PM CDT [facility] Blood Venipuncture / Unknown 01/06/2025 10:10 AM CDT 01/06/2025 11:03 AM CDT Narrative [facility] - 01/06/2025 9:43 PM CDT ESTRADIOL VALUE [...] falsely elevated estradiol results. Tomas Reddy APRN, LEGAL COORDINATOR CHEMISTRY ORDERABLES F inal Result Performing Organization Address [facility]/ZIP Co de Phone Number [facility] [address] [place] [address], [place] * TESTOSTERONE (01/06/2025 10:10 AM CDT) TESTOSTERONE, TOTAL 604 240 - 871 ng/dL 01/06/2025 9:36 PM CDT [facility] Blood Venipuncture / Unknown 01/06/2025 10:10 AM CDT 01/06/2025 11:03 AM CDT Tomas Reddy SPECIAL OFFICER AUTOMAT, LEGAL COORDINATOR CHEMISTRY ORDERABLES F inal Result [facility] [address] [place] [address], * PSA DIAGNOSTIC,TOTAL (01/06/2025 10:10 AM CDT) PSA, TOTAL (PROSTATIC SPECIFIC ANTIGEN) 0.16 <4.00 ng/mL 01/06/2025 11:44 AM CDT [facility] Blood Venipuncture / Unknown 01/06/2025 10:10 AM CDT 01/06/2025 11:03 AM CDT Narrative [facility] - 01/06/2025 11:44 AM CDT PSA NOTE: The PSA value should be used in conjunction with information available from clinical evaluation and other diagnostic procedures. The [employer]Cheetah[employer]onge[employer] Total PSA assay is a Chemiluminescent Microparticle Immunoassay (CMIA) for the quantitative determination of total PSA (both free PSA and PSA complexed to xpxzn-[id number]) in human serum. Total PSA values obtained with different assay methods, including Yoo PSA assays, cannot be used interchangeably. Tomas Reddy APRN, LEGAL COORDINATOR CHEMISTRY ORDERABLES F inal Result Performing Organization Address City/[facility]/ZIP Co de Phone Number [facility] [address] [place] [address] * HEMATOCRIT (01/06/2025 10:10 AM CDT) Pathologist [facility] HEMATOCRIT (HCT) 44.2 38.0 - 50.0 % 01/06/2025 11:13 AM CDT [facility] Blood Venipuncture / Unknown 01/06/2025 10:10 AM CDT 01/06/2025 11:03 AM CDT Tomas Reddy APRN, LEGAL COORDINATOR HEMATOLOGY ORDERABLES Final Result [facility] [address] [place] [address] * (ABNORMAL) CMP (COMPREHENSIVE METABOLIC PANEL) (03/10/2020 9:26 AM CDT) SODIUM 133(L) 136 - 144 mmol/L 03/10/2020 12:54 PM CDT [facility] POTASSIUM 5.3(H) 3.5 - 5.1 mmol/L 03/10/2020 12:54 PM CDT [facility] CHLORIDE 97(L) 100 - 110 mmol/L 03/10/2020 12:54 PM CDT [facility] CO2, VENOUS 26 22 - 32 mmol/L 03/10/2020 12:54 PM CDT [facility] ANION GAP 15.3 8.0 - 20.0 mmol/L 03/10/2020 12:54 PM CDT [facility] GLUCOSE 182(H) 70 - 99 mg/dL 03/10/2020 12:54 PM T [facility] BUN 28(H) 6 - 20 mg/dL 03/10/2020 12:54 PM T [facility] CREATININE, BLOOD 0.98 0.80 - 1.30 mg/dL 03/10/2020 12:54 PM [facility] BUN/CREATININE RATIO 29(H) 12 - 20 ratio 03/10/2020 12:54 PM [facility] TOTAL PROTEIN 7.6 6.0 - 8.3 g/dL 03/10/2020 12:54 PM [facility] ALBUMIN 4.6 3.5 - 5.2 g/dL 03/10/2020 12:54 PM [facility] Comment: The colormetric methods used for the determination of Albumin may lead to falsely elevated test results in patients suffering from renal failure or insufficiency due to interference with other proteins. A/G RATIO 1.5 1.0 - 2.0 03/10/2020 12:54 PM T [facility] CALCIUM 10.4(H) 8.9 - 10.3 mg/dL 03/10/2020 12:54 PM T [facility] T BILI 0.4 <=1.2 mg/dL 03/10/2020 12:54 PM T [facility] SGOT (AST) 19 <=40 U/L 03/10/2020 12:54 PM CDT [facility] SGPT (ALT) 44(H) <=41 U/L 03/10/2020 12:54 PM CDT [facility] ALKALINE PHOSPHATASE 119 40 - 130 U/L 03/10/2020 12:54 PM CDT [facility] GFR, EST. NONAFRICAN >60 >=60 03/10/2020 12:54 PM CDT [facility] GFR, EST. >60 >=60 020 12:54 PM CDT [facility] Comment: Creatinine Clearance is the preferred criteria for selecting drug dose adjustments in renally impaired patients. The GFR is provided as additional pertinent clinical information. GFR is reported in mL/min/1.73 sq m. Blood Venipuncture / Unknown 03/10/2020 9:26 AM CDT 03/10/2020 10:19 AM CDT Danelle Bishop MD CHEMISTRY ORDERABLES Final Result [facility] [address] [place] [address] from Last 3 Months or Most Recently Relevant to Health Maintenance Insurance [facility] Care Teams Commercial Carpenter Relationship Specialty Start Date End Date Regi Alcantar APRN, LEGAL COORDINATOR [address] [place] [address] PCP - General Advanced Practice Nurse 03/19/24 Tomas Reddy APRN, LEGAL COORDINATOR [address] [place] [address] Nurse Practitioner Advanced Practice Nurse 08/08/22
--- OUTSIDE RECORDS SUMMARY | 2025-02-19 14:33 | XMS_ITS | Encounter Summary ---
Author Organization [facility] Address [address] [place] [address] Phone Care Team Providers Care Lead Embedded Software Engineer Name Role Phone Ralf Eduardo MD Primary Care Provider [phone] Tomas Reddy APRN, CNP Unavailable [phone] Regi Alcantar APRN, CNP Primary Care Provid er Reason for Visit * Reason Comments Medication Refill Encounter Details Date Type Department Care Team (Late st Contact Info) Description 07/15/2022 Refill [facility] [address] [place] [phone] Tomas Reddy APRN, CNP [address] [place] [address] Medication Refill Social History Tobacco Use Types [...] Reddy APRN, CNP - 08/01/2022 11:12 AM HOMICIDE SQUAD SERGEANT Testosterone is low. Patient needs office visit to discuss titration. One month refill provided CIDE SQUAD SERGEANT * Telephone Encounter - Henny Leahy - 07/28/2022 1:28 PM CST Pt had labs done on 07-26-2022 CIDE SQUAD SERGEANT * Telephone Encounter - Henny Leahy - 07/18/2022 1:18 PM CST Canceling due to pt needing labs done CIDE SQUAD SERGEANT * Telephone Encounter - Henny Leahy - 07/18/2022 1:17 PM CST Pt made aware; lab order date extended and faxed to [facility] [place]. CIDE SQUAD SERGEANT documented in this encounter Plan of Treatment Upcoming Encounters Date Type Department Care Team (Late st Contact Info) Description 04/21/2025 10:15 AM CDT Office Visit [facility] [address] [place] [address] Tomas Reddy APRN, COMMUNITY RELATIONS ADVISOR [address] [place] [address] documented as of this encounter Visit Diagnoses Diagnosis Hypogonadism in male documented in this encounter Care Teams Lead Embedded Software Engineer Relationship Specialty Start Date End Date Ralf Eduardo MD [address] [place] [address] PCP - General Adult Medicine 08/09/21 03/18/24 Regi Alcantar APRN, COMMUNITY RELATIONS ADVISOR [address] [place] [address] PCP - General Advanced Practice Nurse 03/19/24 Tomas Reddy APRN, COMMUNITY RELATIONS ADVISOR [address] [place] [address] Nurse Practitioner Advanced Practice Nurse 08/08/22 documented as of this encounter
--- OUTSIDE RECORDS SUMMARY | 2025-02-19 14:33 | XMS_ITS | Encounter Summary ---
Author Organization [facility] Facility Care Team Providers Care Media Producer Name Role Phone Chelsie Nair MD Primary Care Provider [phone] Charles Medina MD Unavailable [phone] Ralf Eduardo MD Primary Care Provider [phone] Wilda Estes MD Unavailable [phone] Danelle Bishop MD Unavailable [phone] Nupur Eduardo MD Primary Care Provider [phone] Encounter Details Date Type Department Care Team (Latest Contact Info) Description 05/07/2014 Orders Only [facility] ProviderStanley MD [address] [place] [address] Social History Tobacco Use Types Packs/Day Years Used Date Smoking Tobacco: Never Assessed Sex and Gender Information Value Date Recorded Sex Assigned at Not on file 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 Sex Male 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 Gender Identity Not on file Sexual [...] on filedocumented in this encounter Care Teams Media Producer Relationship Specialty Start Date End Date Chelsie Nair MD [address] [facility] [address] SAIMA Dominguez [address] [address] PCP - General Family Medicine 09/05/17 01/01/20 Ralf Eduardo MD [address] [place] [address] DR SAIMA Dominguez [address] [address] PCP - General Internal Medicine 02/24/20 Nupur Eduardo MD [address] [place] [address] [address] [place] [address] PCP - General 01/02/20 02/23/20 Charles Medina MD [address] [place] [address] DR SAIMA Dominguez [address] [address] Senior Business Analyst Interventional Cardiology 09/08/19 Wilda Estes MD [address] [place] [address] DR SAIMA Dominguez [address] [address] Surgeon Orthopedic Surgery 02/24/20 Danelle Bishop MD [address] [place] [address] DR SAIMA Dominguez [address] [address] Referring Physician Urology 02/24/20 documented as of this encounter
--- OUTSIDE RECORDS SUMMARY | 2025-02-19 14:33 | XMS_ITS | Encounter Summary ---
Author Organization [facility] Address [address] [place] [address] Phone Care Team Providers Care Janitorial Manager Name Role Phone Ralf Eduardo MD Primary Care Provider [phone] Tomas Reddy APRN, TRUCK DRIVER HELPER Unavailable Regi Alcantar APRN, TRUCK DRIVER HELPER Primary Care Provid er Reason for Visit * Reason Comments Medication Refill Encounter Details Date Type Department Care Team (Late st Contact Info) Description 12/21/2022 Refill [facility] [address] [place] [phone] Tomas Reddy APRN, TRUCK DRIVER HELPER [address] [place] [address] Medication Refill Social History Tobacco Use Types [...] Description 04/21/2025 10:15 AM CDT Office Visit [facility] [address] [place] [address] Tomas Reddy APRN, CNP [address] [place] [address] documented as of this encounter Visit Diagnoses Diagnosis Hypogonadism in male documented in this encounter Care Teams Janitorial Manager Relationship Specialty Start Date End Date Ralf Eduardo MD [address] [place] [address] PCP - General Adult Medicine 08/09/21 03/18/24 Regi Alcantar APRN, CNP [address] [place] [address] PCP - General Advanced Practice Nurse 03/19/24 Tomas Reddy APRN, CNP [address] [place] [address] Nurse Practitioner Advanced Practice Nurse 08/08/22 documented as of this encounter
--- OUTSIDE RECORDS SUMMARY | 2025-02-19 14:33 | XMS_ITS | Encounter Summary ---
Author Organization [facility] Facility Care Team Providers Care Boat Hand Name Role Phone Chelsie Nair MD Primary Care Provider [phone] Charles Medina MD Unavailable [phone] Ralf Eduardo MD Primary Care Provider [phone] Wilda Estes MD Unavailable [phone] Danelle Bishop MD Unavailable [phone] Nupur Eduardo MD Primary Care Provider [phone] Encounter Details Date Type Department Care Team (Latest Contact Info) Description 03/28/2018 Orders Only [facility]INCON[facility] ProviderStanley MD [address] [place] [address] Social History Tobacco Use Types Packs/Day Years Used Date Smoking Tobacco: Former Smokeless Tobacco: Never Alcohol Use Standard Drinks/Week Comments No 0 (1 standard drink = 0.6 oz pur e alcohol) Sex and Gender Information Value Date Recorded Sex Assigned at Not on file 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 Gender Identity Not on file Sexual Orientation [...] on filedocumented in this encounter Care Teams Boat Hand Relationship Specialty Start Date End Date Chelsie Nair MD [address] [place] [address] DR SAIMA Dominguez [facility] [address] [place] [address] PCP - General Family Medicine 09/05/17 01/01/20 Ralf Eduardo MD [address] [place] [address] DR SAIMA Dominguez [address] [address] PCP - General Internal Medicine 02/24/20 Nupur Eduardo MD [address] [facility] [address] [place] [phone] PCP - General 01/02/20 02/23/20 Charles Medina MD [address] [place] [address] DR SAIMA Dominguez [address] [address] Awake Overnight Monitor Interventional Cardiology 09/08/19 Wilda Estes MD [address] [place] [address] DR SAIMA Dominguez [address] [address] Surgeon Orthopedic Surgery 02/24/20 Danelle Bishop MD [address] [place] [address] DR SAIMA Dominguez [facility] [address] [place] [address] Referring Physician Urology 02/24/20 documented as of this encounter
--- OUTSIDE RECORDS SUMMARY | 2025-02-19 14:33 | XMS_ITS | Referral Summary ---
Author Organization [facility] Address [address] [place] [address] Care Team Providers Care Housekeeping Cleaner Name Role Phone Charles Medina MD Unavailable [phone] Ralf Eduardo MD Primary Care Provider Wilda Estes MD Unavailable [phone] Danelle Bishop MD Unavailable [phone] Allergies No known active allergies Medications testosterone [...] water. His DME is [facility] in [facility]. He will follow up here [...] caused. 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 Work /up and r/o sickle [...] Resolved Date Body mass index 40.0-44.9, adult (CMS/[facility]) 11/15/2022 10/08/2023 8. Elevated CK 02/24/2020 [...] (08/29/2019): Added automatically from request for surgery [id number] 8. h/o right ankle fx from s imple fall down stairs 05/11/2019 10/08/2023 Assessment & Plan (02/24/2020 12:46 PM CDT): anklel and nose fractures from simple falls. Suspect osteoporotic? Paolo with shelter vit D deficiency and low Testosterone. 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 Gender Identity Not on file Sexual Orientation [...] on file Medical Devices Implanted Type Area Bark Grinder Device Identifier Shelf Expiration Date Model / Serial / Lot Synthes 241.351 Lcp 12mm [id number] .7mm 5 Hole Collar 1/3 Tubular Plate Bone - [id number] Implanted:Qty: 1 on 09/19/2019 by Wilda Estes MD at [facility] Plate Right: Foot Synthes I 241.351 / / Synthes 204.814 3.5mm 6mm 14mm 2.5mm Self Tap Small Hexagonal Socket Low Profile - [id number] Implanted:Qty: 1 on 09/19/2019 by Wilda Estes MD at [facility] Screw Right: Foot Synthes I 204.814 / / Synthes 206.050 4mm 6mm 50mm Small Hexagonal Socket Cancellous Full Thread Screw - [id number] Implanted:Qty: 1 on 09/19/2019 by Wilda Estes MD at [facility] Screw Right: Foot Synthes I 206.050 / / Synthes 206.055 4mm 6mm 55mm Small Hexagonal Socket Cancellous Full Thread Screw - [id number] Implanted:Qty: 1 on 09/19/2019 by Wilda Estes MD at [facility] Screw Right: Foot Synthes I 206.055 / / Synthes 206.055 4mm 6mm 55mm Small Hexagonal Socket Cancellous Full Thread Screw - [id number] Implanted:Qty: 1 on 09/19/2019 by Wilda Estes MD at [facility] Screw Right: Foot Synthes I 206.055 / / [employer] [id number] Corkscrew Fiberwire 3.5mm 12mm Self Tap Eyelet Handle Marketing Strategy Analyst - [id number] Implanted:Qty: 1 on 09/19/2019 by Wilda Estes MD at [facility] Right: Foot [employer] 10/21/2023 AR-1915SF / / [id number] [employer] Ar-1915sf Corkscrew Fiberwire 3.5mm 12mm Self Tap Eyelet Handle Marketing Strategy Analyst - [id number] Implanted:Qty: 1 on 09/19/2019 by Wilda Estes MD at [facility] Right: Foot [employer] 03/22/2022 AR-1915SF / / [id number] [employer] Ar-1915sf Corkscrew Fiberwire 3.5mm 12mm Self Tap Eyelet Handle Marketing Strategy Analyst - [id number] Implanted:Qty: 1 on 09/19/2019 by Wilda Estes MD at [facility] Right: Foot [employer] 10/21/2023 AR-1915SF / / [id number] Procedures Procedure Name Priority Date/Time Associated Diagnosis Comments POCT HEMOGLOBIN A1C Routine 01/15/2023 1 0:51 AM CDT Type 2 diabetes mellitus without complication, with long-term current use of insulin ([facility]) COMPREHENSIVE METABOLIC PANEL Routine 03/14/2022 10:23 AM CDT Atrial fibrillation, unspecified type (HCC) Congestive heart failure, unspecified HF chronicity, unspecified heart failure type (HCC) Atherosclerosis of coronary artery, unspecified vessel or lesion type, unspecified whether angina present, unspecified whether [place] or transplanted heart 1. HTN Type 2 [...] type, unspecified whether angina present, unspecified whether [place] or transplanted heart 1. HTN Type 2 [...] type, unspecified whether angina present, unspecified whether [place] or transplanted heart 1. HTN Type 2 [...] type, unspecified whether angina present, unspecified whether [place] or transplanted heart 1. HTN Type 2 [...] ORDERABLES Final R esult Performing Organization Address [facility] de Phone Number [facility] [address] [place] [address] * (ABNORMAL) Albumin Creatinine Ratio, Urine (03/14/2022 [...] ORDERABLES Final R esult Performing Organization Address [facility] Co de Phone Number [facility] [address] [place] [address] * (ABNORMAL) Lipid panel (03/14/2022 10:23 AM [...] Jose Luis ALVAREZ et al. TEDDY. 2013;310(19): 6558-9963 (http://education.CardioKinetix/faq/NDL879) Chol/HDL ratio 3.7 <5.0 (calc) [facility] Non-HDL, (LDL+VLDL) 139(H) <130 mg/dL (calc) [facility] Comment: For patients with diabetes plus 1 major ASCVD risk factor, treating to a non-HDL-C goal of <100 mg/dL (LDL-C of <70 mg/dL) is considered a therapeutic option. Blood specimen (specimen) 03/14/2022 10:23 AM CDT 03/14/2022 10:26 AM CDT us Ralf Eduardo MD LAB BLOOD ORDERABLES Final R esult [facility] [address] [place] [address] * (ABNORMAL) Comprehensive metabolic panel (03/14/2022 10:23 AM CDT) Glucose 276(H) 65 - 99 mg/dL [facility] Comment: Fasting reference interval For someone without known diabetes, a glucose value >125 mg/dL indicates that they may have diabetes and this should be confirmed with a follow-up test. BUN 25 7 - 25 mg/dL [facility] Creatinine 1.06 0.60 - 1.29 mg/dL [facility] eGFR 88 > OR = 60 mL/min/1. 73m2 [facility] Comment: The eGFR is based on the CKD-EPI 2020 equation. To calculate the new eGFR from a previous Creatinine or Cystatin C result, go to https://www.kidney.org/professionals/ kdoqi/gfr%5Fcalculator BUN/creat ratio NOT APPLICABLE 6 - 22 (calc) [facility] Sodium 133(L) 135 - 146 mmol/L [facility] Potassium, pl 4.8 3.5 - 5.3 mmol/L [facility] Chloride 99 98 - 110 mmol/L [facility] CO2 26 20 - 32 mmol/L [facility] Calcium 9.9 8.6 - 10.3 mg/dL [facility] Protein, sr 7.3 6.1 - 8.1 g/dL [facility] Albumin 4.4 3.6 - 5.1 g/dL [facility] GLOBULIN 2.9 1.9 - 3.7 g/dL (calc) [facility] Alb/glob ratio 1.5 1.0 - 2.5 (calc) [facility] Bilirubin, total 0.9 0.2 - 1.2 mg/dL [facility] Alk phos 78 36 - 130 U/L [facility] AST 18 10 - 40 U/L [facility] ALT (SGPT) 29 9 - 46 U/L [facility] Blood specimen (specimen) 03/14/2022 10:23 AM CDT 03/14/2022 10:26 AM CDT Ralf Eduardo MD LAB BLOOD ORDERABLES Final R esult [facility] [address] [place] [address] from Last 3 Months or Most Recently Relevant to Health Maintenance Insurance [facility] ACCESS CHOICE MEDICARE [facility]RO[employer] [facility] CHOICE OOS Member Subscriber Plan / Payer (Ef fective 2022-Present) Name:Cade Gonzalez Member ID:[id number] Relation to Subscriber:Self Name:Cade Gonzalez Subscriber ID:[id number] Payer ID:[id number] (NAIC) Type:MyTime Address: [address] ACCESS CHOICE Care Teams Housekeeping Cleaner Relationship Specialty Start Date End Date Ralf Eduardo MD PCP - General Internal Medicine 02/24/20 Charles Medina MD Nurse Unit Manager Interventional Cardiology 09/08/19 Wilda Estes MD Surgeon Orthopedic Surgery 02/24/20 Danelle Bishop MD Referring Physician Urology 02/24/20
[2025-02-19 15:17] LABS: Hematocrit 41.5 % (42.0-52.0); Hemoglobin 13.4 g/dL (14.0-18.0); Immature Granulocyte Percent A 0.3 % (0-0.5); Lymphocytes Absolute Auto 1.00 K/mm3 (0.9-3.2); Mean Corpuscular HGB Conc 32.3 g/dl (32-36); Mean Corpuscular Hemoglobin 25.2 pg (26-34); Mean Corpuscular Volume 78.2 fl (80-100); Nucleated Red Blood Cells Absolute Auto 0.000 K/mm3 (0.0-0.012); Nucleated Red Blood Cells Perc 0.0 % (0.0-0.2); Platelet Count Result 180 k/mm3 (150-375); Red Blood Count 5.31 M/mm3 (4.6-6.20); White Blood Count 7.5 K/mm3 (4.5-10.0)
[2025-02-19] MEDS: KETOROLAC 15 MG/ML VIAL (*BKC) IV PUSH (15:22)
[2025-02-19] MEDS: METOCLOPRAMIDE HCL INJ 10 MG/2 ML VIAL IV PUSH (15:22)
[2025-02-19 16:14] LABS: Alanine Aminotransferase 35 U/L (6-50); Albumin Level 4.1 g/dL (3.5-5.1); Alkaline Phosphatase 77 U/L (38-126); Anion Gap 8 mmol/L (4-12); Aspartate Amino Transferase 33 U/L (17-59); Bilirubin,Total 0.7 mg/dL (0.2-1.3); Blood Urea Nitrogen 19 mg/dL (9-20); CRP 3.8 mg/dL (<1.0); Calcium 9.5 mg/dL (8.4-10.2); Carbon Dioxide 25 mmol/L (22-30); Chloride 101 mmol/L (98-107); Estimated CRCL calculation 95 ml/min; Estimated Glomerular Filt Rate > 60; Glucose 123 mg/dL (65-110); Potassium 4.0 mmol/L (3.4-5.0); Sodium 134 mmol/L (137-145); Total Protein 7.7 g/dL (6.3-8.2)
--- NOTE | 2025-02-19 16:35 | PC.NURSE ---
Left knee fluid extracted by MD Edgar and walked down to Lab by Tech.
[2025-02-19] MEDS: ACETAMINOPHEN 325 MG TABLET 650 MG PO (17:47)
[2025-02-19 17:50] VITALS: BP 128/72; PULSE 79; RESP 20; TEMP 36.9; O2SAT 100
[2025-02-19 18:03] LABS: Source Synovial Fluid Lt Knee Syn Fluid
[2025-02-19 18:04] LABS: Color Synovial Fluid Yellow (Colorless); Lymphocytes Synovial Fluid 9 %; Macrophages Synovial Fluid 5 %; Monocytes Synovial Fluid 85 %; Neutrophils Synovial Fluid 1 % (0-25); Nucleated Cell Synovial Fluid 6625 /uL (0-200); RBC Synovial Fluid < 2000 /uL (0-0)
--- NOTE | 2025-02-19 19:00 | PC.NURSE ---
HOLLY bandage placed on left knee per MD order.
--- NOTE | 2025-02-19 21:21 | ED_ITS ---
HPI - General Adult General Chief complaint: Unspecified Stated complaint: JOINT, NECK PAIN Time Seen by Provider: 02/19/25 14:19 History of Present Illness HPI narrative: Patient presents here with body aches, though mostly he has pain to his left knee, saw his doctor who noticed that his knee appeared red and sent him to the emergency room. Related Data Home Medications ?Medication ?Instructions ?Recorded ?Confirmed ?Last Taken ?Type atorvastatin 40 mg tablet 40 mg PO DAILY 06/03/20 Unknown History bumetanide 1 mg tablet 1 mg PO DAILY 06/03/20 Unknown History bupropion HCl 300 mg 24 hr tablet, 300 mg PO QAM 06/03/20 Unknown History extended release carvedilol 25 mg tablet 25 mg PO Q12H 06/03/20 Unknown History coenzyme Q10 100 mg capsule (Co 100 mg PO DAILY 06/03/20 Unknown History Q-10) esomeprazole magnesium 20 mg 20 mg PO DAILY 06/03/20 Unknown History capsule,delayed release Allergies Allergy/AdvReac Type Severity Reaction Status Date / Time No Known Allergies Allergy Verified 08/03/24 21:11 Review of Systems 2 Review of Systems: All systems reviewed & are unremarkable except as noted in HPI and below PMFSH Past Medical History Medical History CHF (congestive heart failure), NYHA class I Obesity Hx of migraines H/O: HTN (hypertension) Diabetes Depression Surgical History Surgical History History of ankle surgery Family History Family History Other Alcoholism Cerebrovascular accident Depression Diabetes mellitus Heart attack Hypertension Social History Social History Smoking status: Unknown if ever smoked Alcohol intake: current Exam 2 Narrative: EXAMINATION OF ORGAN SYSTEMS/BODY AREAS: Constitutional: Vital signs per nursing GENERAL:[No acute distress, non-toxic appearing.] HEAD: Normal with no signs of head trauma. EYES: EOMI, conjunctiva normal ENT: Hearing grossly intact LUNGS: Nonlabored breathing. HEART: [Regular rate and rhythm] ABD: [Soft], [nontender to palpation] EXT: Normal range of motion at knees, wrists, all extremities including neck SKIN: Some slight redness in the medial aspect of the left knee with some tenderness NEURO: [Alert and oriented x 3. No gross focal sensory or strength deficits.] PSYCH: Normal affect Course Vital Signs Vital signs: Vital Signs Temperature 100 F H 02/19/25 12:48 Pulse Rate 90 02/19/25 12:48 Respiratory Rate 16 02/19/25 12:48 Blood Pressure 114/60 02/19/25 12:48 Pulse Oximetry 98 02/19/25 12:48 Oxygen Delivery Room Air 02/19/25 12:48 Temperature 98.5 F 02/19/25 17:50 Pulse Rate 79 02/19/25 17:50 Respiratory Rate 20 02/19/25 17:50 Blood Pressure 128/72 02/19/25 17:50 Pulse Oximetry 100 02/19/25 17:50 Oxygen Delivery Room Air 02/19/25 12:48 Procedures Joint Aspiration/Injection Joint Asp./Inject. 1: Joint Aspiration Date: 02/19/25 Side of body: left Joint Aspirated: knee Ultrasound Guidance: No Skin Prep: other (Chlorhexidine, and sterile prep and drape, and alcohol swabs) Local Anesthetic: lidocaine 1% Amount of anesthesia used (mL): 2 Needle Size Used: 20G Fluid Obtained: viscous (Yellow) Total fluid obtained (mL): 25 Patient Tolerated Procedure: well and no complications Medical Decision Making MDM Narrative Medical decision making narrative: Patient presents here with joint pain, mostly to his left knee, some to the wrist, on exam his wrists have no overlying skin changes he has full range of motion and minimal tenderness, his left knee however does have some redness to the medial aspect, thankfully normal range of motion without severe pain. He does have a obvious left knee effusion compared to the right, verbal consent discussed with patient risks including bleeding, infection, pain, failure of procedure. 25 cc of yellow viscous fluid aspirated, did not appear purulent, patient tolerated this very well. Infection workup initiated, and I have discussed this case with the orthopedist. Dr Jones recommend starting him on Keflex with close follow-up in the clinic on Sunday. Overall I have very low concern for septic joint given normal passive range of motion of the knee, and I do feel comfortable with this plan, as does the patient and at bedside. Dose of Ancef given here. On re- evaluation, patient states he feels much better. Vital Signs Vital Signs: Vital Signs Temperature 100 F H 02/19/25 12:48 Pulse Rate 90 02/19/25 12:48 Respiratory Rate 16 02/19/25 12:48 Blood Pressure 114/60 02/19/25 12:48 Pulse Oximetry 98 02/19/25 12:48 Oxygen Delivery Room Air 02/19/25 12:48 Temperature 98.5 F 02/19/25 17:50 Pulse Rate 79 02/19/25 17:50 Respiratory Rate 20 02/19/25 17:50 Blood Pressure 128/72 02/19/25 17:50 Pulse Oximetry 100 02/19/25 17:50 Oxygen Delivery Room Air 02/19/25 12:48 Lab Data 02/19/25 15:07 02/19/25 15:07 Labs: Lab Results 02/19/25 02/19/25 Range/Units 15:07 16:04 WBC 7.5 (4.5-10.0) K/mm3 RBC 5.31 (4.6-6.20) M/mm3 Hgb 13.4 L (14.0-18.0) g/dL Hct 41.5 L (42.0-52.0) % MCV 78.2 L (80-100) fl MCH 25.2 L (26-34) pg MCHC 32.3 (32-36) g/dl RDW 14.2 (11.5-14.5) % Plt Count 180 (150-375) k/mm3 MPV 10.4 (7.4-10.4) fl Immature Gran % (Auto) 0.3 (0-0.5) % Neut % (Auto) 75.5 H (45.5-73.1) % Lymph % (Auto) 13.3 L (18.3-44.2) % [place] % (Auto) 10.3 H (2.6-8.5) % Eos % (Auto) 0.3 (0-4.4) % Baso % (Auto) 0.3 (0.2-1.2) % Lymph # (Auto) 1.00 (0.9-3.2) K/mm3 [place] # (Auto) 0.8 H (0.1-0.6) K/mm3 Eos # (Auto) 0.0 (0-0.3) K/mm3 Baso # (Auto) 0.0 (0.0-0.1) K/mm3 Abs Immat Gran (auto) 0.02 (0.00-0.031) K/mm3 Absolute Neuts (auto) 5.7 (1.3-6.7) K/mm3 Absolute Nucleated RBC 0.000 (0.0-0.012) K/mm3 Nucleated RBC % 0.0 (0.0-0.2) % ESR 21 H (0-20) mm/hr Sodium 134 L (137-145) mmol/L Potassium 4.0 (3.4-5.0) mmol/L Chloride 101 (98-107) mmol/L Carbon Dioxide 25 (22-30) mmol/L Anion Gap 8 (4-12) mmol/L BUN 19 (9-20) mg/dL Creatinine 1.10 (0.7-1.3) mg/dL Estim Creat Clear Calc 95 ml/min Estimated GFR > 60 (59 - ) Glucose 123 H (65-110) mg/dL Lactic Acid 1.1 (0.7-2.0) mmol/L Calcium 9.5 (8.4-10.2) mg/dL Total Bilirubin 0.7 (0.2-1.3) mg/dL AST 33 (17-59) U/L ALT 35 (6-50) U/L Alkaline Phosphatase 77 (38-126) U/L C-Reactive Protein 3.8 H (<1.0) mg/dL Total Protein 7.7 (6.3-8.2) g/dL Albumin 4.1 (3.5-5.1) g/dL Fluid Glucose Pending Fluid Total Protein Pending Synovial Source Lt knee syn fluid Synovial Color Yellow (Colorless) Synovial Appearance Cloudy A (Clear) Synovial RBC < 2000 H (0-0) /uL Synovial Nuc Cells 6625 H (0-200) /uL Synovial Neutrophils 1 (0-25) % Synovial Lymphocytes 9 % Synovial Monocytes 85 % Synovial Macrophages 5 % Synovial Crystals None seen (None Seen) Synovial Glucose Cancelled Synovial Total Protein Cancelled Discharge Plan Discharge Clinical Impression: Inflammation of joint of knee Patient Disposition: Home Condition: Stable Instructions: Swollen Knee Joint (ED) Additional Instructions: Please take the antibiotics as prescribed; call the orthopedic surgeon to set up a followup appointment on Sunday. If your symptoms get worse, especially if you are unable to bend your knee without severe pain, come back to the hospital. Patient Language: Vietnamese Prescriptions: New cephalexin 500 mg capsule 500 mg PO Q6H 7 Days Qty: 28 0RF No Action atorvastatin 40 mg tablet 40 mg PO DAILY bumetanide 1 mg tablet 1 mg PO DAILY bupropion HCl 300 mg tablet extended release 24 hr 300 mg PO QAM carvedilol 25 mg tablet 25 mg PO Q12H Rx Instructions: must administer with a meal/food coenzyme Q10 [Co Q-10] 100 mg capsule 100 mg PO DAILY esomeprazole magnesium 20 mg capsule,delayed release(DR/EC) 20 mg PO DAILY cyclobenzaprine 10 mg tablet 10 mg PO TID PRN (Reason: muscle spasm) Qty: 8 0RF ibuprofen 600 mg tablet 600 mg PO TID PRN (Reason: pain) Qty: 10 0RF methocarbamol 750 mg tablet 750 mg PO HS PRN (Reason: muscle pain) Qty: 10 0RF ondansetron 4 mg tablet,disintegrating 4 mg PO Q8H PRN (Reason: nausea and vomiting) Qty: 10 0RF Follow-up/Referrals: Katharine,Regi Fonseca APRN [Primary Care Provider] - Delta Jones MD [Physician] - 2 Days
[2025-02-20 11:08] LABS: Glucose, Body Fluid 93 mg/dL (.)
== END 2025-02-19 19:01 | disposition home or self-care (01) ==
PROVIDERS: Emergency Provider Emergency Medicine; PCP Nurse Practitioner
DX: M17.12 Unilateral primary osteoarthritis, left knee (principal); I50.9 Heart failure, unspecified; I11.0 Hypertensive heart disease with heart failure; E11.9 Type 2 diabetes mellitus without complications; F32.A Depression, unspecified; Z79.899 Other long term (current) drug therapy
CPT/HCPCS: 20610; 36415; 71045; 73562; 80053; 82945; 83605; 84157; 85025; 85652; 86140; 89051; 89060; 96374; 96375; 99284; J0690; A9270; J1200; J1885; J2765